=== PATIENT | female | born 1950 | race African-American/Black ===

== ENCOUNTER 2020-12-20 13:21 | Emergency (ER) | payer MEDICARE, SELFPAY ==
--- NOTE | ~2020-12-20 | XR_ITS ---
EXAMINATION: XR cervical spine 4-5V DATE: 12/20/2020 13:59 INDICATION: Stiff neck. TECHNIQUE: 4 views of cervical spine were obtained. COMPARISON: Cervical spine radiographs 10/28/2016 FINDINGS: There is kyphosis of cervical spine. There is 12 degrees levoscoliosis of cervical spine. V ertebral body heights are normal. There is mildly decreased disc height at C5-C6 and C6-C7. There is severe bilateral uncovertebral joint osteoarthritis at C5-C6. There is multilevel mild to moderate fa cet joint osteoarthritis. There is mild central canal stenosis at C5-C6 and C6-C7. No prevertebral so ft tissue swelling. IMPRESSION: 1. Moderate cervical spondylosis. 2. Cervical levoscoliosis and kyphosis. Reviewed, dictated and finalized at location A.
[2020-12-20 13:36] VITALS: BP 147/82; PULSE 90; RESP 16; TEMP 37.2; O2SAT 98
--- NOTE | 2020-12-20 13:45 | ED.NECK ---
HPI - Neck Pain/Injury General Chief Complaint: Back Pain/Injury Stated Complaint: stiff neck/back Time Seen by Provider: 12/20/20 13:35 Source: patient Mode of arrival: ambulatory Limitations: no limitations History of Present Illness HPI Narrative: Tressa Sheridan is a 70 yo female with a PMH of HTN, GERD, who [facility] complaining of left-sided neck pain and limitation of motion of her neck x 2 days. Rates pain as high as 9 out of 10.she has been taking Flexeril for the last day and a half and slipped on a single pull but still has pain that wakes her up at night Related Data Home Medications Medication Instructions Recorded Confirmed diltiazem HCl 180 mg PO DAILY 12/20/20 12/20/20 hydrochlorothiazide 12.5 mg PO DAILY 12/20/20 12/20/20 omeprazole 40 mg PO DAILY 12/20/20 12/20/20 Allergies Allergy/AdvReac Type Severity Reaction Status Date / Time propoxyphene Allergy Mild Nausea and Unverified 11/12/15 17:49 Vomiting Review of Systems Review of Systems: Narrative: CONSTITUTIONAL: Denies fever, chills, sweats. EYES: Denies visual changes, redness, discharge. ENT: Denies rhinorrhea, congestion, sore throat, otalgia. CARDIOVASCULAR: Denies chest pain, palpitations, edema. RESPIRATORY: Denies dyspnea, wheezing, cough GASTROINTESTINAL: Denies abdominal pain, nausea, vomiting, diarrhea. GENITOURINARY: Denies dysuria, hematuria, abnormal discharge SKIN: Denies rash or itching. NEUROLOGIC: Denies numbness, or focal weakness. PSYCHIATRIC: Denies anxiety or depression. Neck pain on right greater than left PMFSH Past Medical History Medical History Back pain HTN (hypertension) Family History Family History (Updated 12/20/20 @ 14:03 by Gem Arguelles CNP) Other Heart disease Hypertension Social History Social History (Updated 12/20/20 @ 14:03 by Gem Arguelles CNP) Smoking status: Never smoker Alcohol intake: current Gender identity (if verbalized by the patient): Female Comments At time of signature, I agree with nursing past medical, surgical, social and family history. There is no relevant family history pertinent to the presenting complaint. Exam Narrative: Exam Narrative: GENERAL: This is a well-nourished, well-developed patient, in moderate distress. HEAD: normocephalic, atraumatic. EYES: Sclera clear/white. Vision is grossly intact. EARS: External ears normal, Hearing grossly intact. NOSE: External nose normal without nasal discharge, nares without redness, no rhinorrhea. THROAT: Mucous membranes moist, NECK: Neck supple, tender on L > R, muscular lump om L CARDIOVASCULAR: Regular rate and rhythm without murmurs, gallops, or rubs. RESPIRATORY: Clear to auscultation. Breath sounds equal bilaterally. No wheezes, rales, or rhonchi. GASTROINTESTINAL: Abdomen soft, SKIN: warm, intact with no suspicious lesions or rash, good texture and turgor. NEURO: awake, alert, and oriented to person, place and time. There were no obvious focal neurologic abnormalities. Steady gait EXTREMITIES: Normal range of motion. BACK: Nontender without deformity Course Course Emergency Course: 70-year-old patient here with complaints of neck pain x2 days, states pain is not getting better with heat and Flexeril, no injury but unable to turn head fully are lift head far enough to take pills X-ray of neck shows negative acute findings patient has moderate scoliosis kyphosis and spondylosis Given Toradol IM here At discharge rated pain as a 7/10. Changed muscle relaxant to baclofen with tramadol-patient warned of the sedative effects of baclofen and tramadol and not to drive Vital Signs Vital signs: Vital Signs Temperature 99.0 F 12/20/20 13:36 Pulse Rate 90 12/20/20 13:36 Respiratory Rate 16 12/20/20 13:36 Blood Pressure 147/82 H 12/20/20 13:36 Pulse Oximetry 98 12/20/20 13:36 Temperature 99.0 F 12/20/20 13:36 Pu
[2020-12-20] MEDS: KETOROLAC (*BKC) 60 MG/2 ML VIAL IM (14:17)
== END 2020-12-20 14:37 | disposition home or self-care (01) ==
PROVIDERS: Emergency Provider Nurse Practitioner
DX: M43.6 Torticollis (principal); M54.2 Cervicalgia; I10 Essential (primary) hypertension; K21.9 Gastro-esophageal reflux disease without esophagitis
CPT/HCPCS: 72050; 96372; 99213; G0463; J1885

== ENCOUNTER 2022-08-30 09:56 | Outpatient (CLI) | payer OTHER, SELFPAY ==
--- NOTE | 2022-08-30 10:56 | ECG_ITS ---
Measurements Intervals [facility] Rate: 68 P: 41 OH: 150 QRS: 3 QRSD: 90 T: 1 QT: 393 QTc: 421 Interpretive Statements SINUS RHYTHM LEFT VENTRICULAR HYPERTROPHY BORDERLINE ST-T WAVE ABNORMALITY- INFERIOR LEADS BASELINE ARTIFACT- I, III, AVR, AVL, AVF BORDERLINE ECG NO PREVIOUS ECG AVAILABLE FOR COMPARISON Electronically Signed On 08-30-2022 11:50:15 THORACIC MEDICINE SPECIALIST by Rob Millan D.O.
[2022-08-30 11:24] LABS: Eosinophils Absolute Auto 0.1 K/mm3 (0-0.3); Eosinophils Percent Auto 2.3 % (0-4.4); Hematocrit 36.6 % (37.0-47.0); Hemoglobin 11.9 g/dL (12.0-15.0); Immature Granulocyte Absolute 0.01 K/mm3 (0.00-0.031); Immature Granulocyte Percent A 0.3 % (0-0.5); Lymphocytes Absolute Auto 1.08 K/mm3 (0.9-3.2); Lymphocytes Percent Auto 27.3 % (18.3-44.2); Mean Corpuscular HGB Conc 32.5 g/dl (32-36); Mean Corpuscular Hemoglobin 29.4 pg (26-34); Mean Corpuscular Volume 90.4 fl (80-100); Mean Platelet Volume 9.5 fl (7.4-10.4); Monocytes Absolute Auto 0.5 K/mm3 (0.1-0.6); Monocytes Percent Auto 11.6 % (2.6-8.5); Neutrophils Absolute Auto 2.3 K/mm3 (1.3-6.7); Neutrophils Percent Auto 57.5 % (45.5-73.1); Platelet Count Result 222 k/mm3 (150-375); Red Blood Count 4.05 M/mm3 (4.2-5.4); Red Cell Distribution Width 14.1 % (11.5-14.5)
[2022-08-30 11:31] LABS: Albumin Level 4.1 g/dL (3.5-5.1); Anion Gap 7 mmol/L (8-16); Blood Urea Nitrogen 15 mg/dL (7-17); Calcium 8.8 mg/dL (8.4-10.2); Carbon Dioxide 31 mmol/L (22-30); Chloride 101 mmol/L (98-107); Estimated Glomerular Filt Rate > 60; Glucose 101 mg/dL (65-110); Potassium 3.8 mmol/L (3.4-5.0); Sodium 139 mmol/L (137-145)
[2022-08-30 11:34] LABS: Urine Cotinine NEGATIVE
[2022-08-30 11:59] LABS: Hemoglobin A1C 5.8 % (<5.7)
== END 2022-08-30 09:57 | disposition home or self-care (01) ==
PROVIDERS: PCP Family Medicine; Visit Provider Orthopaedic Surgery
DX: M17.0 Bilateral primary osteoarthritis of knee (principal); Z01.818 Encounter for other preprocedural examination; R94.31 Abnormal electrocardiogram [ECG] [EKG]
CPT/HCPCS: 80048; 80307; 82040; 83036; 85025; 87081; 93005

== ENCOUNTER 2022-09-14 01:39 | Day surgery (SDC) | payer OTHER, SELFPAY ==
--- NOTE | 2022-08-30 09:53 | PC.NURSE ---
PRE-OP INSTRUCTIONS, PLEASE READ CAREFULLY Report to the Outpatient Waiting Room, entrance under the green pavilion located off [facility], at time _1000_ on date _09/14/22_. Planned Procedure Time: _1200_. PACK A SMALL OVERNIGHT BAG AND LEAVE IN THE CAR ALONG WITH YOUR WALKER Time changes happen often and if your time is changed the preop area will call you the afternoon before. - You and your visitor will be asked to self-screen and do not enter if you have any COVID symptoms. - Only one visitor is requested with a max of two and NO children visitors are allowed at this time. - The patient visitor may be requested to leave or wait in car when not with patient due to distancing restrictions. - A mask is REQUIRED within the hospital. -VISITING HOURS 8AM-8PM Patients may have clear liquids (water, carbonated beverages, clear teas, apple juice) until 3 hours prior to surgery (0900 AM) with a maximum of 20 ounces. - No food from midnight until time of surgery Take the following medications with a SIP of water the morning of surgery: _DILTIAZEM, FLEXERIL IF NEEDED_ Medications to discontinue per - ASPIRIN PER DR. CORDERO'S INSTRUCTIONS NAPROXEN 7 DAYS PRIOR TO SURGERY, Date to take last dose 09/06/22_ Medications to discontinue per ANESTHESIA - _HEALING HERBS 3 DAYS PRIOR TO SURGERY, Date to take last dose 09/10/22_ Please no make-up, nail maori, hairspray, perfume, deodorant, or body powder the day of surgery. No jewelry (including any body piercings) or valuables the day of surgery, leave them at home. Please take a shower or bath the night before, or the morning of, surgery with an antibacterial soap. Wear comfortable, loose fitting clothing. - Jewelry must be removed prior to entering the operating room. Rings and piercings that are not removed may be cut off. - The hospital will not accept responsibility for valuables. - Please leave all valuables, including medications, at home the day of surgery. If you are going home after surgery, a licensed bottom hoop driver must drive you home. - NO public transportation without another adult if you receive anesthesia. - We recommend that an adult stay with you for 24 hours following discharge. - We also recommend that you do not drive, make important decision, drink alcoholic beverages, or take any drugs that were not prescribed by your health care provider for at least 24 hours after your discharge time. Follow any additional instructions given to you from your surgeon. If you or anyone in your household have experienced Covid symptoms in the past week, please notify your surgeon or the nurse liaison at the phone number below for possible testing. Instructions given to _PATIENT_and asked if any additional questions and then verbalized understanding. Patient advised to call surgeon office or pre surgery nurse liaison [phone] if any additional questions.
[2022-08-30 10:33] VITALS: BP 134/64; PULSE 74; RESP 18; TEMP 36.6; O2SAT 100; BMI 35.7
--- NOTE | 2022-09-09 12:01 | PM.IMHP ---
H&P: HPI History of Present Illness Date/Time: 09/09/22 12:01 Chief Complaint: Bilateral knee DJD Narrative: 72-year-old female who presents today for left total knee arthroplasty and cortisone injection in the right knee. She has been having symptoms in her knees for years. Patient has severe medial compartment osteoarthritis in both knees. She has been on meloxicam 7.5 mg twice daily. Patient feels this point nonsurgical treatment for her knee pain is not working and is ready to proceed with total knee arthroplasty at this point rather than continue nonsurgical treatment. Review of Systems Review of Systems: All systems reviewed & are unremarkable except as noted in HPI and below PMFSH Past Medical History Medical History Back pain HTN (hypertension) Family History Family History Other Heart disease Hypertension Social History Social History Smoking status: Never smoker Second hand tobacco smoke exposure: No Additional smoking assessment comments: PT DENIES ALL FORMS OF TOBBACO USE Alcohol intake: never Substance use: never Substance use type: does not use Gender identity (if verbalized by the patient): Female Spiritual care concerns: No Meds Home Medications and Allergies Home Medications Medication Instructions Recorded Confirmed Type diltiazem HCl 180 mg 180 mg PO DAILY 12/20/20 08/30/22 History capsule,extended release 24 hr hydrochlorothiazide 12.5 mg tablet 12.5 mg PO DAILY 12/20/20 08/30/22 History Natures Formula Healing Herbs 0.5 tsp DAILY 08/30/22 History Stool Softener 3 tab-cap DAILY 08/30/22 08/30/22 History aspirin 81 mg capsule 81 mg PO DAILY 08/30/22 08/30/22 History chlorpheniramine-dextromethorphan 1 tablet PO Q6H PRN Congestion 08/30/22 08/30/22 History 4 mg-30 mg tablet (Coricidin HBP Cough and Cold) cyclobenzaprine 10 mg tablet 10 mg BID PRN Muscle Spasm 08/30/22 08/30/22 History naproxen 2 tab-cap BID 08/30/22 08/30/22 History pantoprazole 40 mg tablet,delayed 40 mg PO BID 08/30/22 08/30/22 History release Allergies Allergy/AdvReac Type Severity Reaction Status Date / Time propoxyphene Allergy Mild Nausea and Unverified 08/30/22 10:19 Vomiting Exam Narrative: 72-year-old female alert pleasant. She is 5 ft 2 in and 202 lb. BMI is 36.9. Her left hip has full range of motion without discomfort. Normal quad strength. Negative Stinchfield maneuver. Left knee range of motion is from 15-95 degrees. Trace effusion in the left knee. Moderate anterior medial joint line tenderness. Normal stability in the knee. 2+ dorsalis pedis and absent posterior tibialis pulse. Normal sensation to both lower extremities no edema in either lower extremity. Resp: Auscultation: clear to auscultation bilaterally Cardio: Rate: regular rate Rhythm: regular rhythm Assessment and Plan Assessment and plan (1) Left knee DJD: Code(s): M17.12 - Unilateral primary osteoarthritis, left knee Status: Acute Plan 72-year-old female who has severe medial compartment osteoarthritis in both knees with the left being more painful than the right at this point. At this point she feels she is ready proceed with surgery on the left. We will also give her cortisone injection on the right knee at the time surgery. Surgical procedure as well as the risks and complications were discussed in detail all questions were answered and we will proceed. Patient will see her primary care doctor for pre-surgical clearance. She has seen cardiology and has had a stress test done which showed ejection fraction at 76% normal myocardial perfusion she has been cleared from cardiology. Plan use Eliquis for DVT prophylaxis postoperatively. Her Chem panel was all within normal limits creatinine 0.90, hemoglobin 11.9
[2022-09-14] VITALS (11 sets, daily range): BP systolic 120–132; BP diastolic 63–77; PULSE 72–89; RESP 14–20; TEMP 36–36.6; O2SAT 97–100; BMI 34.3
--- NOTE | ~2022-09-14 | XR_ITS ---
EXAMINATION: XR knee LT 2V DATE: 09/14/2022 16:37 INDICATION: Total left knee arthroplasty. Postop. TECHNIQUE: 2 views of left knee were obtained. COMPARISON: None. FINDINGS: There is a total left knee arthroplasty with patellar resurfacing in near-anatomic alignmen t. No fracture. There is gas in the knee joint and soft tissues, consistent with recent surgery. IMPRESSION: 1. Total left knee arthroplasty in near-anatomic alignment. Reviewed, dictated and finalized at location A. [employer]IN[employer]
[2022-09-14] MEDS: ACETAMINOPHEN 500 MG TABLET 1000 MG PO (10:13)
[2022-09-14] MEDS: LACTATED RINGERS 1,000 ML 30 ML IV CONT ×2 (10:30→16:23)
[2022-09-14] MEDS: TRANEXAMIC ACID 1,000MG/ISO100 1,000 MG/100 ML BAG 200 MG IVPB (11:30)
--- NOTE | 2022-09-14 11:46 | WPDANESEPPF ---
Anes - Initial Pre Proc Eval Procedure: Operation Date: 09/14/22 12:00 Proposed Procedures p Left Total Knee Arthroplasty, Right Knee Cortisone Injection - Domingo Gonzalez MD Date/Time: 09/14/22 11:46 Surgeon: Domingo Gonzalez MD Pre Op Diagnosis: oa right and left knee Patient Data Age: 72 Gender: F Height: 1.6 m Weight: 88 kg Last Vital Signs Temp 36.3 C L 09/14/22 10:46 Pulse 82 09/14/22 10:46 Resp 16 09/14/22 10:46 BP 129/72 09/14/22 10:46 Pulse Ox 100 09/14/22 10:46 O2 Del Method Room Air 09/14/22 10:46 Allergies Allergy/AdvReac Type Severity Reaction Status Date / Time No Known Allergies Allergy Verified 09/14/22 10:15 Home Medications Medication Instructions Recorded Confirmed Type diltiazem HCl 180 mg 180 mg PO DAILY 12/20/20 09/14/22 History capsule,extended release 24 hr hydrochlorothiazide 12.5 mg tablet 12.5 mg PO DAILY 12/20/20 09/14/22 History Natures Formula Healing Herbs 0.5 tsp DAILY 08/30/22 09/14/22 History Stool Softener 3 tab-cap DAILY 08/30/22 09/14/22 History aspirin 81 mg capsule 81 mg PO DAILY 08/30/22 09/14/22 History chlorpheniramine-dextromethorphan 1 tablet PO Q6H PRN Congestion 08/30/22 09/14/22 History 4 mg-30 mg tablet (Coricidin HBP Cough and Cold) cyclobenzaprine 10 mg tablet 10 mg BID PRN Muscle Spasm 08/30/22 09/14/22 History naproxen 2 tab-cap BID 08/30/22 09/14/22 History pantoprazole 40 mg tablet,delayed 40 mg PO BID 08/30/22 09/14/22 History release Patient hx anesthesia problems: none Family hx anesthesia problems: none Results Review: All pre-operative results and documents have been reviewed as part of the pre-operative evaluation. [facility] Past Medical History Medical History Back pain HTN (hypertension) Family History Family History Other Heart disease Hypertension Social History Social History Smoking status: Never smoker Second hand tobacco smoke exposure: No Additional smoking assessment comments: PT DENIES ALL FORMS OF TOBBACO USE Alcohol intake: never Substance use: never Substance use type: does not use Living arrangements: alone Gender identity (if verbalized by the patient): Female Spiritual care concerns: No Anes - Eval Final PreProcedure Day of Procedure 09/14/22 11:46 Patient weight: obese Heart: regular rate and rhythm Lungs: clear to auscultation Airway: Mallampati scale class II Neurological: alert and oriented Last oral intake: >/= 8 hours ASA classification: III Emergent: no Anesthetic plan: proceed Anesthesia type and monitoring: general ETT and standard monitoring Results Review: All pre-operative results and documents have been reviewed as part of the pre-operative evaluation. Informed Consent: The patient's anesthetic plan and its attendant risks and benefits were discussed with the patient/family/POA. Questions were solicited and answers provided to the satisfaction of the patient/family/POA.
--- NOTE | 2022-09-14 12:03 | WPDHPUPDATE1 ---
History and Physical Update Update Date/Time: 09/14/22 12:03 History and Physical has been reviewed, including an updated exam of the patient. There are NO changes in the patient's condition. Risks, benefits, and alternatives have been discussed and questions answered. Patient agrees to proceed with procedure.
[2022-09-14] MEDS: ceFAZolin 2 GM/D5W 50 ML 2 GM/50 ML BAG IVPB (12:09)
[2022-09-14] MEDS: ceFAZolin SODIUM 1 GM VIAL 3 GM (12:56)
[2022-09-14] MEDS: GENTAMICIN BONE CEMENT REFOBACIN 1 EACH TOPICAL (12:57)
[2022-09-14] MEDS: methylPREDNISolone ACETATE 80 MG/ML VIAL XX (13:05)
[2022-09-14] MEDS: TRANEXAMIC ACID 1,000 MG/10 ML AMPUL 1000 MG IV PUSH (14:54)
[2022-09-14] MEDS: ceFAZolin SODIUM 1 GM VIAL 2 GM IV PUSH (14:56)
--- NOTE | 2022-09-14 15:52 | W.PM.PROC2 ---
Procedure Note - Detailed Date of Procedure 09/14/22 Pre-op Diagnosis oa right and left knee, obesity Post-op Diagnosis Same Procedure Performed Cortisone injection right knee, left total knee arthroplasty Surgeon Domingo Gonzalez MD Sandwich Machine Operator Rebecca Anesthesia General Description of Procedure Patient was brought to the operating room and general anesthesia was administered. She received 2 g of Ancef weight based vancomycin 1 g of tranexamic acid preoperatively. After time-out, the right knee was prepped with the ChloraPrep and 80 mg of Depo-Medrol and 3 cc 1% lidocaine were injected into the right knee without difficulty. Next the left knee was addressed. Even under anesthesia she had range of motion from 15? to barely 90?. She did become significantly stiffer since last evaluation. Her BMI is 36.7 and her stiffness and obesity made the operation much more difficult than usual adding approximately 45 minutes to the operation. The left knee was prepped draped usual fashion. Limb was exsanguinated tourniquet elevated to 300 mmHg. A an 8 in longitudinal midline incision was used and a standard parapatellar arthrotomy was utilized. She had huge osteophytes around the patella which were debrided. . Osteophytes removed from around the femur. Even with this, because of the tightness of her quadriceps exposure of the distal femur was very difficult. We performed a suprapatellar synovectomy. Dense stiff white synovium lining covered the the entire joint she had a large effusion at time of arthrotomy and the medial and lateral gutters were similarly debrided of synovium. A conservative lateral facetectomy was performed and with this all performed we were able to shai the patella and a patella was cut down to 16 mm and a protector cap applied. The distal femur was exposed guide tristin inserted down the femoral canal after aspiration of canal contents using the 5 degree valgus cutting bushing 9 mm of bone removed the distal femur which removed equal amounts medially and laterally due to medial wear. Next the tibia was cut. Our initial cut did not quite get down to the base of the posteromedial tibial wear area. Therefore an additional 2 or 2.5 mm was removed and this brought us down to remove 1 mm of bone from the low point of the posteromedial tibial plateau. Cut was made perpendicular to the axis of the tibia. Meniscus remnants were excised PCL was recessed off the femur and a conservative posterior central capsule release was performed. Medial and lateral gaps were assessed at 90? with a tight 8 mm medially and 12 mm laterally. We had removed lateral femoral osteophyte prior to this assessment. The sizing guide was applied distal femur set at 5? external rotation. Posterior referencing pinholes were placed and the size 65 vanguard cutting block was applied and AP and chamfer cuts were made and this gave us a nice line to line fit the anterior cortex in line to line distally with the trial. With the 10 mm [address] trial in place I felt that we were at about 1 degree of valgus and we were tight medially flexion compared to laterally where there was a mm or 2 amount of play at 90? laterally no plate medially. We reapplied the tibial cutting block and removed another mm of bone shifting of lock into 1 degree of varus relative to its previous position and bringing down the relative high spot in the dense posterior tibial plateau bone and this gave us a perfectly flat surface that was felt to be at 0? varus valgus this point. The tibia was subluxed and sized for a 71 vanguard tray which fit line to line posterolateral to anteromedial at the proper rotation and again the tray was perfectly stable confirming a perfectly flat surface of the tibial plateau. This was punched and we trialed with a 10 mm insert. At 90? we had a mm of play medially 1-2 mm laterally. We lacked a few degrees of extension no play medially 2 mm laterally. Posterior femoral bone was removed w
[2022-09-14] MEDS: KETOROLAC 15 MG/ML VIAL (*BKC) IV PUSH ×2 (16:13→21:43)
--- NOTE | 2022-09-14 17:41 | ADMGEN ---
This patient, Tressa Sheridan, was admitted to -. Patient/family oriented to hospital policies and general routines including ID bracelet, bed and alarms, visiting hours, pain management, procedures, bathroom and other care routines, personal items, smoking policy, room service/diet, and visiting hours. Information on how to activate the Rapid Response Team has been discussed. Patient/Family are encouraged to report perceived risks to care and to ask questions if they do not understand what they are told or what they should do.
[2022-09-14] MEDS: ONDANSETRON INJ 4 MG/2 ML VIAL IV PUSH (17:55)
[2022-09-14] MEDS: MORPHINE SULFATE (*CRX) 2 MG/ML INJ IV PUSH ×2 (18:56→20:49)
[2022-09-14] MEDS: SODIUM CHLORIDE 0.9% IV 1,000 ML 125 ML IV CONT (19:00)
--- NOTE | 2022-09-14 20:26 | PM.IMCN ---
Assessment and Plan Assessment and plan (1) Status post total left knee replacement: Onset Date: 09/14/22 Code(s): Z96.652 - Presence of left artificial knee joint Status: Acute (2) Postoperative nausea: Code(s): R11.0 - Nausea; Z98.890 - Other specified postprocedural states Status: Acute (3) Essential hypertension: Code(s): I10 - Essential (primary) hypertension Status: Acute Plan Patient is postop left total knee arthroplasty. Pain management and DVT prophylaxis per primary service. Patient is having mild postoperative nausea. Patient already has Zofran scheduled. Will give 1 dose of Phenergan. Likely due to post anesthesia affect and or opiate use. Will continue Zofran and give 1 time dose of IM Phenergan. Will continue home PPI therapy. The patient remains on IV fluids. Will check electrolyte panel with a.m. labs. The patient has essential hypertension but blood pressures are well controlled. Will continue home Cardizem and hydrochlorothiazide. Once postop nausea has resolved patient is stable from a medical perspective in may be discharged per orthopedic surgeon's discretion. HPI Data of Consult Consult date: 09/14/22 Requesting Physician: Domingo Gonzalez MD Primary Care Provider: Anais BachMD Consult Narrative Narrative: Tressa Sheridan is a 72 year old female with a past medical history a GERD and essential hypertension who presented to the hospital for an elective left total knee arthroplasty. Intraoperatively the patient had estimated blood loss of 250 mL. Her preop hemoglobin was around 11. Patient underwent left total knee arthroplasty and has had a uncomplicated postoperative course except for postop nausea. Patient is not having any active vomiting but has persistent nausea despite Zofran. EKG was reviewed from last month's preop testing and patient had normal QT interval. Phenergan has been provided. Patient does have a history of hypertension but blood pressures are well controlled. She denies any abdominal pain. She has had nausea but no true vomiting. She reported that her last bowel movement was within the last 48 hours. She denies any hematochezia or melena. She has occasional urge urinary incontinence. She denies dysuria or hematuria. She has been voiding postoperatively. Her postop knee pain is 5/10 currently. She reports feeling chilled but this is not unusual for her. She denies any shortness of breath or chest pain. She denies any bruising or bleeding. She also has chronic right knee pain is well with known osteoarthritis. She denies any lightheadedness or palpitations. She denies any dizziness. She denies recent falls. Review of Systems Review of Systems: 10 systems were reviewed with pertinent positives and negatives per HPI. Except as documented in the HPI, all other systems were reviewed and are negative. [facility] Past Medical History Medical History (Updated 09/14/22 @ 20:36 by Blanquita Mcpherson DO) Back pain Essential hypertension GERD (gastroesophageal reflux disease) Hypersomnia, idiopathic With MSLT demonstrating hypersomnia in 2016 without evidence of REM sleep achieved so cannot diagnose narcolepsy Obesity (BMI 30.0-34.9) Surgical History Surgical History (Updated 09/14/22 @ 22:11 by Blanquita Mcpherson DO) History of bilateral carpal tunnel release (2002) History of bunionectomy of both great toes History of right breast biopsy (~1999) With benign pathology History of tubal ligation Status post total left knee replacement (09/14/22) Status post trigger finger release Right thumb 2002, left thumb 1996 Family History Family History Other Heart disease Hypertension Social History Social History (Updated 09/14/22 @ 22:09 by Blanquita Mcpherson DO) Social History: 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 She is
[2022-09-14] MEDS: PROMETHAZINE HCL 25 MG/ML AMPUL IM (20:47)
[2022-09-14] MEDS: PANTOPRAZOLE SODIUM IV 40 MG VIAL IV PUSH (21:44)
[2022-09-14] MEDS: oxyCODONE HCL (*CRX) 5 MG TAB IR PO (22:24)
[2022-09-15] MEDS: ACETAMINOPHEN 500 MG TABLET 1000 MG PO ×3 (00:52→12:32)
[2022-09-15] MEDS: oxyCODONE HCL (*CRX) 5 MG TAB IR PO ×2 (03:43→06:56)
[2022-09-15 05:05] VITALS: BP 136/65; PULSE 81; RESP 20; TEMP 36.6; O2SAT 100
[2022-09-15 05:28] LABS: Basophils Percent Auto 0.1 % (0.2-1.2); Hematocrit 29.5 % (37.0-47.0); Hemoglobin 9.8 g/dL (12.0-15.0); Immature Granulocyte Absolute 0.03 K/mm3 (0.00-0.031); Immature Granulocyte Percent A 0.3 % (0-0.5); Lymphocytes Absolute Auto 0.42 K/mm3 (0.9-3.2); Lymphocytes Percent Auto 4.4 % (18.3-44.2); Mean Corpuscular HGB Conc 33.2 g/dl (32-36); Mean Corpuscular Hemoglobin 29.9 pg (26-34); Mean Corpuscular Volume 89.9 fl (80-100); Mean Platelet Volume 9.1 fl (7.4-10.4); Monocytes Absolute Auto 0.6 K/mm3 (0.1-0.6); Monocytes Percent Auto 6.2 % (2.6-8.5); Neutrophils Absolute Auto 8.5 K/mm3 (1.3-6.7); Platelet Count Result 162 k/mm3 (150-375); Red Blood Count 3.28 M/mm3 (4.2-5.4); Red Cell Distribution Width 13.9 % (11.5-14.5); White Blood Count 9.5 K/mm3 (4.5-10.0)
[2022-09-15 05:42] LABS: Anion Gap 5 mmol/L (8-16); Blood Urea Nitrogen 11 mg/dL (7-17); Calcium 7.7 mg/dL (8.4-10.2); Carbon Dioxide 26 mmol/L (22-30); Chloride 102 mmol/L (98-107); Estimated CRCL calculation 65 ml/min; Estimated Glomerular Filt Rate > 60; Glucose 145 mg/dL (65-110); Potassium 3.6 mmol/L (3.4-5.0); Sodium 133 mmol/L (137-145)
--- NOTE | 2022-09-15 07:21 | PM.PNORT ---
Subjective Subjective Date/Time Seen: 09/15/22 07:21 Postop day 1 patient is alert. Afebrile vital signs stable. She did have some nausea night but this has improved. No bouts emesis. She has been up to the restroom multiple times overnight. Pain is well controlled. Dressing is dry and intact. Neurovascularly she is intact. Plan to have patient work with therapy today and after IV antibiotics have been completed she will be discharged home early this afternoon Objective Data Vital Signs Vital Signs: Vital Signs - 24 hr 09/14/22 10:46 09/14/22 16:23 09/14/22 16:35 Temperature 36.3 C L 36.0 C L Pulse Rate 82 89 77 Respiratory Rate 16 16 20 Blood Pressure 129/72 124/74 123/67 Pulse Oximetry 100 100 100 Oxygen Delivery Room Air Simple Face Mask Simple Face Mask Oxygen Flow Rate 6 6 09/14/22 16:50 09/14/22 16:58 09/14/22 17:05 Temperature Pulse Rate 80 77 Respiratory Rate 16 14 Blood Pressure 120/68 122/63 Pulse Oximetry 100 98 Oxygen Delivery Simple Face Mask Room Air Room Air Oxygen Flow Rate 6 09/14/22 17:20 09/14/22 17:47 09/14/22 17:35 Temperature 36.3 C L Pulse Rate 86 77 Respiratory Rate 14 18 Blood Pressure 124/66 126/73 Pulse Oximetry 97 99 Oxygen Delivery Room Air Room Air Oxygen Flow Rate 09/14/22 17:50 09/14/22 18:20 09/14/22 19:47 Temperature 36.4 C L 36.4 C L 36.6 C Pulse Rate 73 72 85 Respiratory Rate 17 18 20 Blood Pressure 126/73 132/77 130/68 Pulse Oximetry 99 100 100 Oxygen Delivery Oxygen Flow Rate 09/14/22 21:39 09/15/22 05:05 Temperature 36.6 C Pulse Rate 78 81 Respiratory Rate 18 20 Blood Pressure 136/65 Pulse Oximetry 98 100 Oxygen Delivery Oxygen Flow Rate Intake/Output Intake/Output: Intake & Output 09/12/22 09/13/22 09/14/22 09/15/22 23:59 23:59 23:59 23:59 Intake Total 1100 1700 Balance 1100 1700 Meds/Results Medications: Active Medications Generic Name Dose Route Start Last Admin Trade Name Freq PRN Reason Stop Dose Admin Acetaminophen 1,000 mg 09/14/22 19:00 09/15/22 06:56 Acetaminophen 500 Mg Tablet PO 1,000 mg Q6H [facility] Administration Apixaban 2.5 mg 09/15/22 09:00 Apixaban 2.5 Mg Tablet PO 09/26/22 21:01 Q12HR [facility] Aspirin 81 mg 09/15/22 09:00 Aspirin 81 Mg Chewable Tablet PO DAILY [facility] Cephalexin HCl 500 mg 09/15/22 18:00 Cephalexin 500 Mg Capsule PO Q6HR [facility] Cyclobenzaprine HCl 10 mg 09/14/22 17:29 Cyclobenzaprine Hcl 10 Mg Tablet PO BID PRN Muscle Spasm Diltiazem HCl 180 mg 09/15/22 09:00 Diltiazem Hcl Cd 180 Mg Cap.Er.24h PO DAILY [facility] Cefazolin Sodium 1 gm in 50 mls @ 100 mls/hr 09/14/22 20:00 09/15/22 04:13 Ancef 1 Gm/D5w 50 Ml Pm IVPB 09/15/22 12:29 Infused Q8H [facility] Infusion Vancomycin HCl 1,000 mg in 250 mls @ 250 mls/hr 09/14/22 23:00 09/15/22 00:33 Vancomycin 1,000 Mg/D5w 250 Ml IVPB 09/15/22 11:59 Infused Q12H [facility] Infusion Meloxicam 7.5 mg 09/15/22 08:00 Meloxicam 7.5 Mg Tablet PO DAILY@0800 [facility] Miscellaneous Information 1 each 09/14/22 00:01 Coricidin Hbp Is Nonform; Ok To Hold If Not Needed Or Change To Formulary Items? XX 10/14/22 00:00 CLARIFY [facility] Morphine Sulfate 2 mg 09/14/22 17:29 09/14/22 20:49 Morphine Sulfate (*Crx) 2 Mg/Ml Inj IV PUSH 2 mg Q1H PRN Administration Pain Rated 7-10 Naloxone HCl 0.1 mg 09/14/22 17:29 Naloxone Hcl 0.4 Mg/Ml Vial IV PUSH Q2M PRN Opiate Reversal Non-Formulary Medication 1 tablet 09/14/22 17:29 Chlorpheniramine-Dextromethorp [Coricidin Hbp Cough And Cold] PO Q6H PRN Congestion Ondansetron HCl 4 mg 09/14/22 17:52 09/14/22 17:55 Ondansetron Inj 4 Mg/2 Ml Vial IV PUSH 4 mg Q4H PRN Administration Nausea And Vomiting Oxycodone HCl 5 mg 09/14/22 19:00 09/15/22 06:56 Oxycodone Hcl (*Crx) 5 Mg Tab Ir PO 5 mg Q4H [facility] Administration Oxycodone HCl 5 mg 09/14/22
--- NOTE | 2022-09-15 07:27 | PM.DS ---
DS: Admitting Diagnosis Discharge Date 09/15 Admitting Diagnosis bilateral knee DJD DS: Discharge Diagnosis Discharge Diagnosis (1) Status post total left knee replacement: Onset Date: 09/14/22 Code(s): Z96.652 - Presence of left artificial knee joint Status: Acute DS: Summary Hospital Course Hospital Course: 72-year-old female underwent left total knee arthroplasty with cortisone injection the right knee on 09/14. Underwent procedure without complications. Postoperatively she did have some mild nausea day of surgery but this past overnight postop day 1 she was afebrile vital signs are stable. She is having no nausea. Pain is well controlled with scheduled Tylenol as well as oxycodone 5 mg. She is also on meloxicam 7.5 mg, we are using this instead of Celebrex due to the fact she is maintaining her baby aspirin through the of surgery. She is on Eliquis for DVT prophylaxis. She was up multiple times the day of surgery to the restroom. Overall she is doing well. Dressing is dry and intact. Neurovascularly she is intact. Patient will work with physical therapy on 09/15 And will be discharged home later that day. patient was advised to keep leg elevated home prevent swelling with do her exercises on hourly basis. She does have a 05/13 heel lift to use in the right shoe while she is ambulating. She has outpatient therapy starting next Monday. Patient will also go home on a 2 week course Keflex as well as Senokot And MiraLax. Patient was advised any questions or concerns she is to call the office otherwise we will see her at her appointed dates. Time Spent with Patient Time attestation: Total time spent providing and/or coordinating discharge services: DS: Data Data Completed and Pending Labs on day of discharge: Labs from last 24 hours 09/15/22 09/15/22 09/14/22 05:23 05:23 10:32 WBC 9.5 RBC 3.28 L Hgb 9.8 L Hct 29.5 L MCV 89.9 MCH 29.9 MCHC 33.2 RDW 13.9 Plt Count 162 MPV 9.1 Immature Gran % (Auto) 0.3 Neut % (Auto) 89.0 H Lymph % (Auto) 4.4 L [place] % (Auto) 6.2 Eos % (Auto) 0.0 Baso % (Auto) 0.1 L Lymph # (Auto) 0.42 L [place] # (Auto) 0.6 Eos # (Auto) 0.0 Baso # (Auto) 0.0 Abs Immat Gran (auto) 0.03 Absolute Neuts (auto) 8.5 H Absolute Nucleated RBC 0.0 Nucleated RBC % 0.0 Sodium 133 L Potassium 3.6 Chloride 102 Carbon Dioxide 26 Anion Gap 5 L BUN 11 Creatinine 0.70 Estim Creat Clear Calc 65 Estimated GFR > 60 Glucose 145 H Calcium 7.7 L Blood Type O Positive Antibody Screen Negative Discharge Plan Discharge Patient Disposition: Home, Self-Care Discharge Instructions: CAMRYN CORDERO M.D [facility], [place] [id number] [place] [id number] POST-OPERATIVE DISCHARGE INSTRUCTIONS TOTAL KNEE ARTHROPLASTY 1. When resting, lie on back with leg elevated above heart to minimize swelling. Significant swelling could indicate a blood clot and if this occurs call the office (or go to the ER) to have a venous ultrasound. 2. Do exercise 5 times a day. 3. Do not sit with leg down except for meals. 4. Wound Care: Nursing will give additional dressings at discharge. Patient to change dressing at home 1 week from surgery, then maintain until seen in office. 5. May shower with dressing in place. 6. Follow weight bearing status instructions. IMPORTANT: Remember not to sit in the chair for more than 30 minutes at a time. As a rule, during the first 14 days after surgery, only sit in the chair to work on the chair knee bending stretch exercise, for meals or for use of the restroom. Sitting in the chair promotes significant swelling in the knee and leg which will make the knee stiff and more painful and which simulates having a blood clot in the veins of the leg. If this type of significant diffuse swelling occurs
--- NOTE | 2022-09-15 08:03 | WPDANESPN ---
Anes - Prog Note Post-Op Date/Time: 09/15/22 08:03 Vital Signs: Last Vital Signs Temp 36.6 C 09/15/22 05:05 Pulse 81 09/15/22 05:05 Resp 20 09/15/22 05:05 BP 136/65 09/15/22 05:05 Pulse Ox 100 09/15/22 05:05 O2 Del Method Room Air 09/14/22 17:47 O2 Flow Rate 6 09/14/22 16:50 Pain Score (VAS): 2 I/O: Intake & Output 09/14/22 09/15/22 09/15/22 23:59 07:59 15:59 Intake Total 450 1700 Balance 450 1700 Laboratory Tests 09/15/22 05:23 09/15/22 05:23 09/14/22 09/15/22 09/15/22 10:32 05:23 05:23 WBC 9.5 RBC 3.28 L Hgb 9.8 L Hct 29.5 L MCV 89.9 MCH 29.9 MCHC 33.2 RDW 13.9 Plt Count 162 MPV 9.1 Immature Gran % (Auto) 0.3 Neut % (Auto) 89.0 H Lymph % (Auto) 4.4 L [place] % (Auto) 6.2 Eos % (Auto) 0.0 Baso % (Auto) 0.1 L Lymph # (Auto) 0.42 L [place] # (Auto) 0.6 Eos # (Auto) 0.0 Baso # (Auto) 0.0 Abs Immat Gran (auto) 0.03 Absolute Neuts (auto) 8.5 H Absolute Nucleated RBC 0.0 Nucleated RBC % 0.0 Sodium 133 L Potassium 3.6 Chloride 102 Carbon Dioxide 26 Anion Gap 5 L BUN 11 Creatinine 0.70 Estim Creat Clear Calc 65 Estimated GFR > 60 Glucose 145 H Calcium 7.7 L Blood Type O Positive Antibody Screen Negative Patient Feedback: Patient satisfied with anesthetic care.
[2022-09-15] MEDS: SENNA/DOCUSATE SODIUM TABLET 2 TAB PO (08:10)
[2022-09-15] MEDS: polyethylene glycoL 3350 17 GM POWD.PACK PO (08:10)
[2022-09-15] MEDS: APIXABAN 2.5 MG TABLET PO (08:10)
[2022-09-15] MEDS: PANTOPRAZOLE 40 MG TABLET PO (08:10)
[2022-09-15] MEDS: ASPIRIN 81 MG CHEWABLE TABLET PO (08:10)
[2022-09-15] MEDS: dilTIAZem HCL CD 180 MG CAP.ER.24H PO (08:10)
[2022-09-15] MEDS: MELOXICAM 7.5 MG TABLET PO (08:10)
--- NOTE | 2022-09-15 11:53 | PC.NURSE ---
Spoke with Anali Luque with hospitalist group- I let her know I had orders for discharge and she said she did not need to see the patient and is okay to send home
[2022-09-15 14:00] VITALS: BP 120/83; PULSE 79; RESP 18; TEMP 36.2; O2SAT 100
[2022-09-15] MEDS: CALCIUM CARBONATE (TUMS) 500 MG (200 MG ELEMENTAL) PO (14:03)
== END 2022-09-15 15:44 | disposition home or self-care (01) ==
LOC: ANHSURGERY 09:58 → ANHSUROVER 18:53
PROVIDERS: PCP Family Medicine; Visit Provider Orthopaedic Surgery
PROC: (CPT 27447; principal; 2022-09-14 12:00)
DX: M17.0 Bilateral primary osteoarthritis of knee (principal); R11.0 Nausea; I10 Essential (primary) hypertension; Z79.82 Long term (current) use of aspirin; E66.9 Obesity, unspecified; Z68.34 Body mass index [BMI] 34.0-34.9, adult
CPT/HCPCS: 27447; 20610; 36415; 73560; 80048; 80307; 82040; 83036; 85025; 86850; 86900; 86901; 87081; 93005; 97110; 97116; 97161; 97165; 97530; 97535; A9270; C1713; C1776; C9113; J0171; J0690; J1040; J1100; J1170; J1885; J2250; J2270; J2405; J2550; J2704; J2710; J2795; J3010; J3370; J7030; J7120

== ENCOUNTER 2024-05-21 10:06 | Outpatient (CLI) | payer MEDICARE, SELFPAY ==
--- NOTE | 2024-05-21 11:02 | ECG_ITS ---
Test Date: 2024-05-21 11:13:56 Measurements Intervals [place] Rate: 64 P: 43 MO: 155 QRS: 2 QRSD: 92 T: 15 QT: 398 QTc: 413 Interpretive Statements SINUS RHYTHM LEFT VENTRICULAR HYPERTROPHY POOR R WAVE PROGRESSION BORDERLINE ST-T WAVE ABNORMALITY- ANTERAOLAT/INF LEADS BASELINE ARTIFACT- I, II, III, AVR, AVL, AVF, V1-V6 BORDERLINE ECG No previous ECG available for comparison Electronically Signed On 05-21-2024 12:03:04 CDT by Rob Millan D.O.
[2024-05-21 12:03] LABS: Basophils Percent Auto 0.8 % (0.2-1.2); Eosinophils Absolute Auto 0.1 K/mm3 (0-0.3); Eosinophils Percent Auto 2.5 % (0-4.4); Hematocrit 37.4 % (37.0-47.0); Hemoglobin 12.1 g/dL (12.0-15.0); Immature Granulocyte Absolute 0.01 K/mm3 (0.00-0.031); Immature Granulocyte Percent A 0.3 % (0-0.5); Lymphocytes Absolute Auto 1.06 K/mm3 (0.9-3.2); Lymphocytes Percent Auto 29.9 % (18.3-44.2); Mean Corpuscular HGB Conc 32.4 g/dl (32-36); Mean Corpuscular Hemoglobin 29.7 pg (26-34); Mean Corpuscular Volume 91.7 fl (80-100); Mean Platelet Volume 10.5 fl (7.4-10.4); Monocytes Absolute Auto 0.4 K/mm3 (0.1-0.6); Monocytes Percent Auto 11.8 % (2.6-8.5); Neutrophils Absolute Auto 1.9 K/mm3 (1.3-6.7); Neutrophils Percent Auto 54.7 % (45.5-73.1); Platelet Count Result 201 k/mm3 (150-375); Red Blood Count 4.08 M/mm3 (4.2-5.4); Red Cell Distribution Width 13.8 % (11.5-14.5); White Blood Count 3.6 K/mm3 (4.5-10.0)
[2024-05-21 12:16] LABS: Albumin Level 4.1 g/dL (3.5-5.1); Anion Gap 8 mmol/L (4-12); Blood Urea Nitrogen 14 mg/dL (7-17); Calcium 9.4 mg/dL (8.4-10.2); Carbon Dioxide 31 mmol/L (22-30); Chloride 97 mmol/L (98-107); Estimated Glomerular Filt Rate > 60; Glucose 90 mg/dL (65-110); Potassium 4.1 mmol/L (3.4-5.0); Sodium 136 mmol/L (137-145); Urine Cotinine NEGATIVE
[2024-05-21 12:32] LABS: Hemoglobin A1C 5.9 % (<5.7)
== END 2024-05-21 10:07 | disposition home or self-care (01) ==
LOC: ANHSURGERY 10:10
PROVIDERS: PCP Family Medicine; Visit Provider Orthopaedic Surgery
DX: M17.11 Unilateral primary osteoarthritis, right knee (principal); Z01.818 Encounter for other preprocedural examination; R94.31 Abnormal electrocardiogram [ECG] [EKG]
CPT/HCPCS: 80048; 80307; 82040; 83036; 85025; 87081; 93005

== ENCOUNTER 2024-05-31 10:17 | Emergency (ER) | payer MEDICARE, SELFPAY ==
[2024-05-31 10:28] VITALS: BP 142/73; PULSE 100; RESP 16; TEMP 37.1; O2SAT 100
[2024-05-31 10:39] LABS: EDCOVIDSCREEN Positive (Negative)
--- NOTE | 2024-05-31 10:50 | ED.URI ---
HPI - URI/Sore Throat General Chief Complaint: Upper Respiratory Infection Stated Complaint: cough,bodyaches,LESLIE COVID exp. Time Seen by Provider: 05/31/24 10:35 Source: patient and RN notes reviewed Mode of arrival: ambulatory Limitations: no limitations History of Present Illness HPI Narrative: Patient presents today complaining of cough, body aches, chills, and chest discomfort with coughing. Symptoms began yesterday. She was exposed to COVID-19 from her brother at home. She has tried TheraFlu without relief. Denies shortness of. Denies history of asthma or COPD. Related Data Home Medications Medication Instructions Recorded Confirmed diltiazem HCl 180 mg 180 mg PO DAILY 12/20/20 05/31/24 capsule,extended release 24 hr hydrochlorothiazide 12.5 mg tablet 12.5 mg PO DAILY 12/20/20 05/31/24 cyclobenzaprine 10 mg tablet 10 mg BID PRN Muscle Spasm 08/30/22 05/31/24 pantoprazole 40 mg tablet,delayed 40 mg PO BID 08/30/22 05/31/24 release aspirin 81 mg capsule 81 mg PO DAILY 02/21/24 05/31/24 magnesium 200 mg tablet 200 mg PO DAILY 02/21/24 05/31/24 meloxicam 15 mg tablet 15 mg PO DAILY 02/21/24 05/31/24 potassium chloride 8 mEq 8 meq PO DAILY 02/21/24 05/31/24 capsule,extended release linaclotide 72 mcg capsule 72 mcg PO PRN PRN Constipation 05/21/24 05/31/24 (Linzess) Allergies Allergy/AdvReac Type Severity Reaction Status Date / Time No Known Allergies Allergy Verified 05/31/24 10:36 Review of Systems Review of Systems: CONSTITUTIONAL: Denies fever, or sweats.+ body aches, chills EYES: Denies visual changes, redness, or discharge. ENT: Denies rhinorrhea, congestion, sore throat, or otalgia. CARDIOVASCULAR: Denies chest pain, palpitations, or edema. RESPIRATORY: Denies dyspnea.+ cough, chest GASTROINTESTINAL: Denies abdominal pain, nausea, vomiting, or diarrhea. GENITOURINARY: Denies dysuria or hematuria. SKIN: Denies rash, itching, or wounds. MUSCULOSKELETAL: Denies back pain, joint pain, or myalgia. NEUROLOGIC: Denies headache, numbness, tingling, or weakness. PSYCH: Denies depression or anxiety. [facility] Past Medical History Medical History Back pain Essential hypertension GERD (gastroesophageal reflux disease) Hypersomnia, idiopathic With MSLT demonstrating hypersomnia in 2016 without evidence of REM sleep achieved so cannot diagnose narcolepsy Obesity (BMI 30.0-34.9) Surgical History Surgical History History of bilateral carpal tunnel release (2002) History of bunionectomy of both great toes History of right breast biopsy (~1999) With benign pathology History of tubal ligation Status post total left knee replacement (09/14/22) Status post trigger finger release Right thumb 2002, left thumb 1996 Family History Family History Other Heart disease Hypertension Social History Social History Social History: 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 Smoking status: Never smoker Second hand tobacco smoke exposure: No Alcohol intake: current Drinks per week: 1 Alcohol use details: occasional Substance use: never Substance use type: does not use Do You Feel Safe in your Home?: Yes Lack of Transportation: No Lack of Food: Never True Current Housing: I Have Housing Concerned About Future Housing: No Difficulty Paying Gas/Electric Bills: No Difficulty Paying for Meds: No Currently Unemployed: Decline to Answer Education: Decline to Answer Difficulty w/ Childcare or Family Care: No Living arrangements: alone Additional living arrangements comments: Brother Gender identity (if verbalized by the patient): Female Spiritual care concerns:
== END 2024-05-31 10:59 | disposition home or self-care (01) ==
PROVIDERS: Emergency Provider Nurse Practitioner
DX: U07.1 COVID-19 (principal); I10 Essential (primary) hypertension; K21.9 Gastro-esophageal reflux disease without esophagitis; E66.9 Obesity, unspecified; Z68.33 Body mass index [BMI] 33.0-33.9, adult
CPT/HCPCS: 87426; 99213; G0463

== ENCOUNTER 2024-06-20 01:36 | Day surgery (SDC) | payer MEDICARE, SELFPAY ==
[2024-05-21 10:02] VITALS: BP 138/88; PULSE 73; RESP 16; TEMP 36.7; O2SAT 100; BMI 34.4
--- NOTE | 2024-05-21 10:10 | PC.NURSE ---
Addendum entered by Kenisha Martínez RN 06/13/24 10:12: Pt called reviewed history and all meds and allergies. Pt did have COVID and took RX for it but is done now, No other changes in PMHX. Pt understands all preop meds and instructions per below with revised dates of surgery, and Preop Hold meds- Last dose of ASA and Melox is 06/12/24 and last dose of Vitamins 06/16/24. Pt verbalizes understanding and has no further s/s Covid at this time. MARTHA Original Note: Report to the Outpatient Waiting Room, entrance under the green pavilion [facility], at time __09:30am__ on date _06/06/24 . Planned Procedure Time: _11:30am .? Time changes happen often and if your time is changed the preop area will call you the afternoon before. - You and your visitor will be asked to self-screen and do not enter if you have any COVID symptoms. Please call surgeon if you need to reschedule. - A mask is optional within the hospital at this time. Patients may have clear liquids (water, carbonated beverages, clear teas, apple juice) until 3 hours prior to surgery with a maximum of 20 ounces. - No food from midnight until time of surgery and no smoking (08:30) Take only the following medications with a SIP of water on the morning of surgery: Diltiazem and Tylenol if needed DO NOT STOP ANY OF YOUR OTHER PRESCRIPTION MEDICATIONS PRIOR TO SURGERY EXCEPT THE FOLLOWING Medications to discontinue per physician Meloxicam & Aspirin for 7 days prior to surgery per Dr. Blood Date to take last dose____05/29/24. HOLD all vitamins and supplements 3 days prior per Anesthesia- Date to take last dose 06/02/24. Please no make-up, nail marshallese, hairspray, perfume, deodorant, or body powder the day of surgery.? No jewelry (including any body piercings) or valuables the day of surgery, leave them at home.? Please take a shower or bath the night before, or the morning of, surgery with an antibacterial soap.? Wear comfortable, loose fitting clothing.? Scrub jonnathan Pierce per Dr Blood. - Jewelry must be removed prior to entering the operating room.? Rings and piercings that are not removed may be cut off. - The hospital will not accept responsibility for valuables.? - Please leave all valuables, including medications, at home the day of surgery. If you are going home after surgery, a licensed new autos delivery driver must drive you home.? - NO public transportation without another adult if you receive anesthesia. - We recommend that an adult stay with you for 24 hours following discharge. - We also recommend that you do not drive, make important decision, drink alcoholic beverages, or take any drugs that were not prescribed by your health care provider for at least 24 hours after your discharge time. Follow any additional instructions given to you from your surgeon. Telephone instructions given to __patient and asked if any additional questions and then verbalized understanding. Patient advised to call surgeon office or pre surgery nurse liaison [phone] if any additional questions.
--- NOTE | 2024-06-19 07:36 | P.HP_ITS ---
H&P: HPI History of Present Illness Date/Time: 06/19/24 07:36 Chief Complaint: Right knee DJD Narrative: 74-year-old female who presents today for a right total knee arthroplasty. She underwent left total knee arthroplasty in August 2022. She is very happy with her results. Patient has severe medial compartment osteoarthritis the right knee. She has been treating this with cortisone injections every 3 months as well as meloxicam 15 mg daily. Last injection was December 10 of this year which gave her couple weeks of improvement of her symptoms. Patient is having pain daily basis. She is having difficulty sleeping at night. She has point where she feels she is ready proceed with total knee arthroplasty on the right. Review of Systems Review of Systems: All systems reviewed & are unremarkable except as noted in HPI and below PMFSH Past Medical History Medical History Back pain Essential hypertension GERD (gastroesophageal reflux disease) Hypersomnia, idiopathic With MSLT demonstrating hypersomnia in 2015 without evidence of REM sleep achieved so cannot diagnose narcolepsy Obesity (BMI 30.0-34.9) Surgical History Surgical History History of bilateral carpal tunnel release (2002) History of bunionectomy of both great toes History of right breast biopsy (~1999) With benign pathology History of tubal ligation Status post total left knee replacement (09/14/22) Status post trigger finger release Right thumb 2002, left thumb 1996 Family History Family History Other Heart disease Hypertension Social History Social History Social History: 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 Smoking status: Never smoker Second hand tobacco smoke exposure: No Alcohol intake: current Drinks per week: 1 Alcohol use details: occasional Substance use: never Substance use type: does not use Do You Feel Safe in your Home?: Yes Lack of Transportation: No Lack of Food: Never True Current Housing: I Have Housing Concerned About Future Housing: No Difficulty Paying Gas/Electric Bills: No Difficulty Paying for Meds: No Currently Unemployed: Decline to Answer Education: Decline to Answer Difficulty w/ Childcare or Family Care: No Living arrangements: alone Additional living arrangements comments: Brother Gender identity (if verbalized by the patient): Female Spiritual care concerns: No Meds Home Medications and Allergies Home Medications Medication Instructions Recorded Confirmed Type diltiazem HCl 180 mg 180 mg PO DAILY 12/20/20 06/13/24 History capsule,extended release 24 hr hydrochlorothiazide 12.5 mg tablet 12.5 mg PO DAILY 12/20/20 06/13/24 History cyclobenzaprine 10 mg tablet 10 mg BID PRN Muscle Spasm 08/30/22 06/13/24 History pantoprazole 40 mg tablet,delayed 40 mg PO BID 08/30/22 06/13/24 History release acetaminophen 500 mg tablet 1,000 mg PO Q6H #90 tabs 09/15/22 06/13/24 Rx polyethylene glycol 3350 17 gram 17 g PO QAM #30 ea 09/15/22 06/13/24 Rx oral powder packet (Miralax) aspirin 81 mg capsule 81 mg PO DAILY 02/21/24 06/13/24 History magnesium 200 mg tablet 200 mg PO DAILY 02/21/24 06/13/24 History potassium chloride 8 mEq 8 meq PO DAILY 02/21/24 06/13/24 History capsule,extended release linaclotide 72 mcg capsule 72 mcg PO PRN PRN Constipation 05/21/24 06/13/24 History (Linzess) meloxicam 15 mg tablet See Rx Instructions .Route 06/03/24 06/13/24 Rx .COMPLEX #30 tabs Allergies Allergy/AdvReac Type Severity Reaction Status Date / Time No Known Allergies Allergy Verified 06/13/24 10:10 Exam Narrative: 74-year-old female alert pleasant. She is 5 ft 3 and 190 lb. BMI is 34.5. Her right knee she has trace effusion. Range of motion is from 8-80 degrees. Normal stability in the knee. Hip range of motion is full without discomfort, negative Stinchfield maneuver. 2+ dorsalis pedis pulse. Normal sensation and no edema in the right lower extremity. Resp: Auscultation: clear to auscultation bilaterally Cardio: Rate: regular rate Rhythm: regular rhythm Assessment and Plan Assessment and plan (1) Primary osteoarthritis of right knee: Code(s): M17.11 - Unilateral primary osteoarthritis, right knee Status: Acute Assessment and Plan: 74-year-old female who has severe medial compartment osteoarthritis in the right knee. She has failed nonsurgical treatment and wishes to proceed with total knee arthroplasty. She did very well with her left knee replacement. She is happy with the results. Surgical procedure well as the risks and complications were discussed in detail all questions were answered and we will proceed. She will stop her meloxicam 1 week prior to surgery. She will continue her baby aspirin through the time surgery. She will see her primary care doctor for pre- surgical clearance. Her nasal swab was negative. Hemoglobin 12.1 platelets whi ch we. Creatinine is 0.90.
--- NOTE | 2024-06-19 14:50 | P.PNAN_ITS ---
Anes - Initial Pre Proc Eval Procedure: Operation Date: 06/20/24 11:30 Proposed Procedures p Right Total Knee Arthroplasty - Domingo Gonzalez MD Date/Time: 06/19/24 14:50 Surgeon: Domingo Gonzalez MD Pre Op Diagnosis: oa right knee Patient Data Age: 74 Gender: F Height: 1.63 m Weight: 91 kg Last Vital Signs Temp 98.0 F 05/21/24 10:02 Pulse 73 05/21/24 10:02 Resp 16 05/21/24 10:02 BP 138/88 05/21/24 10:02 Pulse Ox 100 05/21/24 10:02 O2 Del Method Room Air 05/21/24 10:02 Allergies Allergy/AdvReac Type Severity Reaction Status Date / Time No Known Allergies Allergy Verified 06/13/24 10:10 Home Medications Medication Instructions Recorded Confirmed Type diltiazem HCl 180 mg 180 mg PO DAILY 12/20/20 06/13/24 History capsule,extended release 24 hr hydrochlorothiazide 12.5 mg tablet 12.5 mg PO DAILY 12/20/20 06/13/24 History cyclobenzaprine 10 mg tablet 10 mg BID PRN Muscle Spasm 08/30/22 06/13/24 History pantoprazole 40 mg tablet,delayed 40 mg PO BID 08/30/22 06/13/24 History release acetaminophen 500 mg tablet 1,000 mg PO Q6H #90 tabs 09/15/22 06/13/24 Rx polyethylene glycol 3350 17 gram 17 g PO QAM #30 ea 09/15/22 06/13/24 Rx oral powder packet (Miralax) aspirin 81 mg capsule 81 mg PO DAILY 02/21/24 06/13/24 History magnesium 200 mg tablet 200 mg PO DAILY 02/21/24 06/13/24 History potassium chloride 8 mEq 8 meq PO DAILY 02/21/24 06/13/24 History capsule,extended release linaclotide 72 mcg capsule 72 mcg PO PRN PRN Constipation 05/21/24 06/13/24 History (Linzess) meloxicam 15 mg tablet See Rx Instructions .Route 06/03/24 06/13/24 Rx .COMPLEX #30 tabs Patient hx anesthesia problems: none Family hx anesthesia problems: none Results Review: All pre-operative results and documents have been reviewed as part of the pre- operative evaluation. 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 Smoking status: Never smoker Second hand tobacco smoke exposure: No Alcohol intake: current Drinks per week: 1 Alcohol use details: occasional Substance use: never Substance use type: does not use Do You Feel Safe in your Home?: Yes Lack of Transportation: No Lack of Food: Never True Current Housing: I Have Housing Concerned About Future Housing: No Difficulty Paying Gas/Electric Bills: No Difficulty Paying for Meds: No Currently Unemployed: Decline to Answer Education: Decline to Answer Difficulty w/ Childcare or Family Care: No Living arrangements: alone Additional living arrangements comments: Brother Gender identity (if verbalized by the patient): Female Spiritual care concerns: No Anes - Eval Final PreProcedure Day of Procedure 06/19/24 14:50 Patient weight: obese Heart: regular rate and rhythm Lungs: clear to auscultation Airway: Mallampati scale class II Neurological: alert and oriented Last oral intake: >/= 8 hours ASA classification: III Emergent: no Anesthetic plan: proceed Anesthesia type and monitoring: general ETT and standard monitoring Results Review: All pre-operative results and documents have been reviewed as part of the pre- operative evaluation. Informed Consent: The patient's anesthetic plan and its attendant risks and benefits were discussed with the patient/family/POA. Questions were solicited and answers provided to the satisfaction of the patient/family/POA.
[2024-06-20] VITALS (13 sets, daily range): BP systolic 117–138; BP diastolic 69–87; PULSE 66–82; RESP 10–23; TEMP 36.4–36.9; O2SAT 96–100; BMI 34.2
--- NOTE | ~2024-06-20 | XR_ITS ---
EXAMINATION: [id number] DATE: 06/20/2024 15:26 INDICATION: Postoperative evaluation following right total knee arthroplasty. TECHNIQUE: Anteroposterior and lateral views of the right knee were obtained. COMPARISON: 02/21/2024 FINDINGS: Right total knee arthroplasty with patellar resurfacing appears well seated and in near anatomic alig nment. No fractures identified. Expected postoperative subcutaneous and intra-articular gas. IMPRESSION: 1. Right total knee arthroplasty, negative for postoperative purposes. Reviewed, dictated and finalized at location A.
[2024-06-20] MEDS: LACTATED RINGERS 1,000 ML 30 ML IV CONT ×3 (10:15→15:27)
[2024-06-20] MEDS: VANCOMYCIN 1,250 MG/NS 250 ML BAG 166.67 MG IVPB (10:27)
[2024-06-20] MEDS: ACETAMINOPHEN 500 MG TABLET 1000 MG PO (10:28)
--- NOTE | 2024-06-20 10:31 | WPDHPUPDATE1 ---
History and Physical Update Update Date/Time: 06/20/24 10:31 History and Physical has been reviewed, including an updated exam of the patient. There are NO changes in the patient's condition. Risks, benefits, and alternatives have been discussed and questions answered. Patient agrees to proceed with procedure.
[2024-06-20] MEDS: TRANEXAMIC ACID 1,000MG/ISO100 1,000 MG/100 ML BAG 200 MG IVPB (10:50)
[2024-06-20] MEDS: ceFAZolin 2 GM/D5W 50 ML 2 GM/50 ML BAG IVPB ×2 (10:59→22:12)
[2024-06-20] MEDS: SODIUM CHLORIDE 0.9% IV 37.7 ML, MORPHINE SULFATE INJ (*CRX) 2 MG, ROPivacaine HCL 1% 2... INFILTRATE (14:16)
[2024-06-20] MEDS: ceFAZolin SODIUM 1 GM VIAL 2 GM IV PUSH (14:17)
[2024-06-20] MEDS: KETOROLAC 15 MG/ML VIAL (*BKC) IV PUSH (14:17)
[2024-06-20] MEDS: ceFAZolin SODIUM 1 GM VIAL 3 GM (14:18)
[2024-06-20] MEDS: TRANEXAMIC ACID 1,000 MG/10 ML AMPUL 1000 MG IV PUSH (14:20)
[2024-06-20] MEDS: fentaNYL CITRATE INJ (*CRX) 100 MCG/2 ML VIAL 25 MCG IV PUSH ×6 (15:37→16:04)
--- NOTE | 2024-06-20 15:37 | PM.OP ---
Procedure Note - Brief Procedure Note - Brief Date of procedure: 06/20/24 oa right knee Procedure performed: Right total knee arthroplasty Surgeon: GRISELDA Shetty Findings: 74-year-old female underwent right total knee arthroplasty on 06/20. I was involved in the procedure including positioning the patient on the OR table in 1st assisting through the time surgery. Total time spent was 4 hours
--- NOTE | 2024-06-20 15:45 | P.OP_ITS ---
Procedure Note - Detailed Date of Procedure 06/20/24 Pre-op Diagnosis oa right knee Post-op Diagnosis Same Procedure Performed Right total knee arthroplasty Surgeon Domingo Gonzalez MD Electrical Manager Lauren Anesthesia General Description of Procedure Patient brought the operating room and general anesthesia was administered. She received 2 g of Ancef weight based vancomycin 1 g of TXA preoperatively. Under anesthesia she continued to show a flexion contracture between 15 and 20? and had only 75? of flexion passively with a hard stop. Limb was exsanguinated tourniquet elevated to 300 mmHg. A 7 in longitudinal incision was made. A standard parapatellar arthrotomy utilized. Infrapatellar fat pad partially excised. Quadriceps synovectomy carried out. The patella had prominent hypertrophic changes. It measured 24 mm centrally and was cut to 16 mm. Protector cap was applied. Exposure was difficult due to relative patella baja and an extremely tight quadriceps which was muscular. A conservative lateral facetectomy was performed and synovectomy of the lateral retinaculum performed and adhesions in the suprapatellar pouch released all of which gave better patellar mobility. A guide tristin was inserted on femoral canal after aspiration of canal contents and using the 5 degree valgus cutting bushing, 9 mm of bone removed the distal femur. This removed equal amounts medially and laterally because of medial wear. Next the tibial was cut. Our cut was about flush with the low point medial tibial plateau. Meniscal remnants were excised the PCL recessed. Flexion gap was 6 mm medially at 90? 10 mm laterally. Therefore, an additional 2.5 mm of bone was removed the tibial plateau. Cut was made perpendicular to the axis of the tibia and alignment was confirmed. Flexion gap measured 8 mm medially 12 mm laterally. We applied the femoral sizing applied to the femur set at 5? of external rotation which matched Whitesides line and posterior referencing pinholes were placed. We applied the 65 cutting block but this was going to notch I felt and so we applied the 67.5 cutting block and the AP and chamfer cuts were made. The 67.5 rested on the anterior cortex appropriately but was a little too wide. The tibia was sized to the 71 which fit line to line anteromedial and posterolateral and this was punched at proper rotation. On trialing the 10 was appropriate at 90? of flexion. We lacked about 5-7 degrees of extension with 2 or 3 mm of play laterally no play medially. Posterior femoral osteophyte was removed and medial tibial and posteromedial tibial osteophyte removed after recessing the posteromedial capsule just enough to remove the large osteophytes there. On retrialing the knee came out to near full extension but had a positive bounce the arthrotomy open. There was 1 mm of medial 2 mm of lateral opening. A more complete posterior capsular release was performed this time releasing from the origin of the lateral head of gastrocnemius to medial head gastrocnemius in on read trialing the knee came out to full extension with negative bounce but with the arthrotomy towel there was a positive bounce no play medially. Therefore, an additional mm bone was removed from the distal femur. This point I felt we had appropriate rotation of the femoral component with 2 mm of medial opening 1 mm lateral opening at 90?. We downsized the femoral component using the 65 cutting block. The anterior and the chamfer cuts were revisited in the 65 fit perfectly line to line medial to lateral with a snug fit. Now on trialing the knee came out to full extension with 2 mm of medial opening 2-3 mm of lateral opening and with the arthrotomy towel clipped there was 1 mm of medial opening and negative bounce. Anterior posterior drawer was appropriate in all positions. The patella was sized to a 34 thin and the lug holes drilled. Lug holes drilled the femoral component and patellar tracking was central throughout range of motion. We had put the tourniquet down earlier at 90 minutes and at this time the limb was re-exsanguinated tourniquet elevated to 300 mmHg and the trial components removed the bone surfaces prepped with a step drill thoroughly irrigated and dried. Two batches of methylmethacrylate 1 the gentamicin powder mixed medially applied the 71 vanguard tibial tray then the 65 right CR femoral component cement applied the tibial plateau tibial component fully seated cement applied the femur the femoral component fully seated the knee brought into extension with 11 mm 5 in 1 poly trial for cement pressurization. Thirty-four thin patella cemented. Tourniquet was released at 106 minutes. After cement hardening excess cement was sought for removed and hemostasis was achieved. We trialed and I felt the 10 was appropriate and we placed the 10 without difficulty locking with the locking pin but on repeat trialing the 10 seemed a little bit loose. It seemed that the increased slip redness of the implant give it a little more play her perhaps she was a little deeper under anesthesia but I felt we should trialed the 11 and we removed the 10 insert trialed with the 11 and the knee had full extension negative bounce with 1 mm medial 2 mm lateral opening in appropriate AP stability in all positions with no areas of tightness. Therefore we chose the 11 poly insert which was placed and secured with a new locking clip. Range of motion stability patellar tracking reconfirmed. Local anesthetic cocktail was injected in the periarticular soft tissues and the arthrotomy was closed with 2. Vicryl and 1. Unidirectional barbed suture. Wilson flexion was to 115? passively to 125 and full extension. Skin was close d with 2 subcutaneous Vicryl 3-0 subcuticular Monocryl and glue. EBL was 350 cc. Two additional g of Ancef and a 1 g TXA given time wound closure. There were no complications he was transferred postop recovery room in good condition. MAHNAZ Billing Surgery - Charge Forward: Surgery Billing (R TKA )
[2024-06-20] MEDS: HYDROmorphone HCL INJ (*CRX) 1 MG/ML SYR 0.5 MG IV PUSH ×2 (16:18→16:30)
--- NOTE | 2024-06-20 17:20 | ADMGEN ---
This patient, Tressa Sheridan, was admitted to Medical Room 345-01. Patient/family oriented to hospital policies and general routines including ID bracelet, bed and alarms, visiting hours, pain management, procedures, bathroom and other care routines, personal items, smoking policy, room service/diet, and visiting hours. Information on how to activate the Rapid Response Team has been discussed. Patient/Family are encouraged to report perceived risks to care and to ask questions if they do not understand what they are told or what they should do.
[2024-06-20] MEDS: ACETAMINOPHEN 325 MG TABLET 650 MG PO ×2 (18:12→22:14)
[2024-06-20] MEDS: SENNA/DOCUSATE SODIUM TABLET 2 TAB PO (18:12)
[2024-06-20] MEDS: oxyCODONE HCL (*CRX) 5 MG TAB IR PO ×2 (18:13→22:15)
[2024-06-20] MEDS: SODIUM CHLORIDE 0.9% IV 1,000 ML 125 ML IV CONT (18:13)
--- NOTE | 2024-06-20 18:31 | P.CONIM_ITS ---
Assessment and Plan Assessment and plan (1) Primary osteoarthritis of right knee: Code(s): M17.11 - Unilateral primary osteoarthritis, right knee Status: Acute Assessment and Plan: * status post right total knee arthroplasty performed by Dr. Gonzalez * continue full weight-bearing status as tolerated * PT and OT ordered * continue incentive spirometry q.2 hours while awake * continue pain and nausea control * continue Eliquis 2.5 mg p.o. b.i.d. her orthopedic surgery recommendation * advance diet as tolerated to regular diet * continue neurovascular checks * Case Management consulted for outpatient rehab needs (2) Essential hypertension: Code(s): I10 - Essential (primary) hypertension Status: Acute Assessment and Plan: * blood pressures ranging 117/79-136/81 * continue hydrochlorothiazide 12.5 mg p.o. daily HPI Date of Consult Consult date: 06/20/24 Requesting Physician: Domingo Gonzalez MD Primary Care Provider: Anais Bach, Consult Narrative Narrative: Tressa Sheridan is a 74 year old female with a significant past medical history hypertension, GERD, idiopathic hypersomnia, back pain who presented to the hospital today for an elective right total knee arthroplasty. Patient denies any fever, chills, vomiting, diarrhea, abdominal pain, chest pain, shortness of breath. Patient endorses neck pain/stiffness and postoperative nausea. She states her pain in the knee is well controlled. We were consulted for medical management while inpatient. Review of Systems Review of Systems: All systems reviewed & are unremarkable except as noted in HPI and below Constitutional: Constitutional: Reports as per HPI and Reports no additional constitutional complaints Eyes: Eyes: Reports as per HPI and Reports no additional eye complaints ENT: Reports system reviewed and no additional complaints, except as documented and Reports as per HPI Cardiovascular: Cardiovascular: Reports as per HPI and Reports no additional cardiovascular complaints Respiratory: Respiratory: Reports as per HPI and Reports no additional respiratory complaints Gastrointestinal: Gastrointestinal: Reports as per HPI and Reports no additional gastrointestinal complaints Genitourinary: Genitourinary: Reports no additional female genitourinary complaints and Reports as per HPI Musculoskeletal: Musculoskeletal: Reports no additional musculoskeletal complaints and Reports as per HPI Integumentary/Breasts: Skin/Breast: Reports system reviewed and no additional complaints, except as docu and Reports as per HPI Neurologic: Reports system reviewed and no additional complaints, except as documented and Reports as per HPI Psychiatric: Psychiatric: Reports no additional psychiatric complaints and Reports as per HPI Endocrine: Endocrine: Reports no additional endocrine complaints and Reports as per HPI Hematologic/Lymphatic: Hematologic/Lymphatic: Reports no additional hem atologic/lymphatic complaints and Reports as per HPI Allergic/Immunologic: Allergic/Immunologic: Reports no additional allergic/immunologic complaints and Reports as per HPI [facility] Past Medical History Medical History Back pain Essential hypertension GERD (gastroesophageal reflux disease) Hypersomnia, idiopathic With MSLT demonstrating hypersomnia in 2016 without evidence of REM sleep achieved so cannot diagnose narcolepsy Obesity (BMI 30.0-34.9) Surgical History Surgical History History of bilateral carpal tunnel release (2002) History of bunionectomy of both great toes History of right breast biopsy (~1999) With benign pathology History of tubal ligation Status post total left knee replacement (09/14/22) Status post total right knee replacement Status post trigger finger release Right thumb 2002, left thumb 1996 Family History Family History Other Heart disease Hypertension Social History Social History Social History: 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 Brother who moved recently from [place] in now living with her. Smoking status: Never smoker Second hand tobacco smoke exposure: No Alcohol intake: current Drinks per week: 1 Alcohol use details: occasional Substance use: never Substance use type: does not use Do You Feel Safe in your Home?: Yes Lack of Transportation: No Lack of Food: Never True Current Housing: I Have Housing Concerned About Future Housing: No Difficulty Paying Gas/Electric Bills: No Difficulty Paying for Meds: No Currently Unemployed: Decline to Answer Education: Decline to Answer Difficulty w/ Childcare or Family Care: No Living arrangements: alone Additional living arrangements comments: Brother Gender identity (if verbalized by the patient): Female Spiritual care concerns: No Meds Home Medications and Allergies Home Medications Medication Instructions Recorded Confirmed Type diltiazem HCl 180 mg 180 mg PO DAILY 12/20/20 06/20/24 History capsule,extended release 24 hr hydrochlorothiazide 12.5 mg tablet 12.5 mg PO DAILY 12/20/20 06/13/24 History cyclobenzaprine 10 mg tablet 10 mg BID PRN Muscle Spasm 08/30/22 06/13/24 History pantoprazole 40 mg tablet,delayed 40 mg PO BID 08/30/22 06/13/24 History release acetaminophen 500 mg tablet 1,000 mg PO Q6H #90 tabs 09/15/22 06/13/24 Rx polyethylene glycol 3350 17 gram 17 g PO QAM #30 ea 09/15/22 06/13/24 Rx oral powder packet (Miralax) aspirin 81 mg capsule 81 mg PO DAILY 02/21/24 06/20/24 History magnesium 200 mg tablet 200 mg PO DAILY 02/21/24 06/20/24 History potassium chloride 8 mEq 8 meq PO DAILY 02/21/24 06/20/24 History capsule,extended release linaclotide 72 mcg capsule 72 mcg PO PRN PRN Constipation 05/21/24 06/13/24 History (Linzess) meloxicam 15 mg tablet See Rx Instructions .Route 06/03/24 06/20/24 Rx .COMPLEX #30 tabs Allergies Allergy/AdvReac Type Severity Reaction Status Date / Time No Known Allergies Allergy Verified 06/20/24 11:09 Vital Signs Vital Signs - 24 hr 06/20/24 09:40 06/20/24 15:27 06/20/24 15:40 Temperature 97.5 F L 98.4 F Pulse Rate 81 82 70 Respiratory Rate 18 23 H 13 Blood Pressure 138/87 127/72 124/71 Pulse Oximetry 99 100 100 Oxygen Delivery Room Air Simple Face Mask Simple Face Mask Oxygen Flow Rate 10 10 06/20/24 15:55 06/20/24 16:10 06/20/24 16:25 Temperature Pulse Rate 72 71 68 Respiratory Rate 11 L 23 H 13 Blood Pressure 127/69 119/71 124/77 Pulse Oximetry 96 98 100 Oxygen Delivery Room Air Nasal Cannula Nasal Cannula Oxygen Flow Rate 2 2 06/20/24 16:40 06/20/24 16:55 06/20/24 17:30 Temperature 97.9 F Pulse Rate 67 66 67 Respiratory Rate 14 10 L 16 Blood Pressure 117/79 122/75 136/81 Pulse Oximetry 100 100 100 Oxygen Delivery Nasal Cannula Nasal Cannula Oxygen Flow Rate 2 2 06/20/24 17:45 Temperature 98.0 F Pulse Rate 69 Respiratory Rate 16 Blood Pressure 135/78 Pulse Oximetry 100 Oxygen Delivery Oxygen Flow Rate Exam Narrative: General: In no acute distress, well nourished Head: atraumatic, no encephalopathy Eyes: EOMI, PERRLA, sclera clear ENT: moist mucous membranes, nasal passages clear Neck: reporting neck pain and stiffness Cardiac: Normal S1 and S2. No murmur, gallops or friction rubs, peripheral pulses intact. Respiratory: Lungs clear to auscultation, no adventitious lung sounds, currently on room air Gastrointestinal: soft, non-distended, non-tender, hypoactive bowel sounds. Reports nausea : voiding without difficulty. Extremities: moves all extremities well, mild right knee edema Skin:right knee surgical dressing clean, dry and intact Neuro: Alert and oriented x4, cranial nerves intact, no neuro deficits. Psych: normal mood, normal affect, interactive Results Imaging Radiologist's impression: EXAMINATION: [id number] DATE: 06/20/2024 15:26 INDICATION: Postoperative evaluation following right total knee arthroplasty. TECHNIQUE: Anteroposterior and lateral views of the right knee were obtained. COMPARISON: 02/21/2024 FINDINGS: Right total knee arthroplasty with patellar resurfacing appears well seated and in near anatomic alignment. No fractures identified. Expected postoperative subcutaneous and intra-articular gas. IMPRESSION: 1. Right total knee arthroplasty, negative for postoperative purposes. Reviewed, dictated and finalized at location A. Quality VTE Prophylaxis VTE prophylaxis: mechanical ordered and pharmacologic ordered Hospitalist MIPS Advance Care Plan I have confirmed that the patient's Advanced Care Plan is present, code status is documented, or surrogate decision maker is listed in patient medical record.: Yes Medication Reconciliation I have utilized all available resources to obtain, update and review the patients current medications (includes all prescriptions, OTC, herbals, cannabis, and nutritional supplements).: Yes
[2024-06-20] MEDS: KETOROLAC 15 MG/ML VIAL (*BKC) 7.5 MG IV PUSH (22:14)
[2024-06-20] MEDS: FAMOTIDINE 20 MG TABLET PO (22:15)
[2024-06-20] MEDS: VANCOMYCIN 1,000 MG/NS 250 ML 1,000 MG/250 ML BAG 250 MG IVPB (22:16)
[2024-06-20] MEDS: ONDANSETRON INJ 4 MG/2 ML VIAL IV PUSH (22:23)
[2024-06-21 02:40] VITALS: BP 138/70; PULSE 76; RESP 18; TEMP 37.1; O2SAT 100
[2024-06-21] MEDS: KETOROLAC 15 MG/ML VIAL (*BKC) 7.5 MG IV PUSH (03:21)
[2024-06-21] MEDS: oxyCODONE HCL (*CRX) 5 MG TAB IR PO ×4 (03:22→13:04)
[2024-06-21] MEDS: ACETAMINOPHEN 325 MG TABLET 650 MG PO ×4 (03:22→13:03)
[2024-06-21] MEDS: ceFAZolin 2 GM/D5W 50 ML 2 GM/50 ML BAG IVPB ×2 (03:24→12:26)
[2024-06-21 05:59] LABS: Hematocrit 26.9 % (37.0-47.0); Hemoglobin 8.8 g/dL (12.0-15.0); Immature Granulocyte Absolute 0.05 K/mm3 (0.00-0.031); Immature Granulocyte Percent A 0.5 % (0-0.5); Lymphocytes Absolute Auto 0.64 K/mm3 (0.9-3.2); Lymphocytes Percent Auto 6.9 % (18.3-44.2); Mean Corpuscular HGB Conc 32.7 g/dl (32-36); Mean Corpuscular Hemoglobin 29.7 pg (26-34); Mean Corpuscular Volume 90.9 fl (80-100); Mean Platelet Volume 9.9 fl (7.4-10.4); Monocytes Absolute Auto 1.1 K/mm3 (0.1-0.6); Monocytes Percent Auto 11.3 % (2.6-8.5); Neutrophils Absolute Auto 7.5 K/mm3 (1.3-6.7); Neutrophils Percent Auto 81.3 % (45.5-73.1); Platelet Count Result 166 k/mm3 (150-375); Red Blood Count 2.96 M/mm3 (4.2-5.4); Red Cell Distribution Width 13.9 % (11.5-14.5); White Blood Count 9.3 K/mm3 (4.5-10.0)
[2024-06-21 06:07] LABS: Anion Gap 4 mmol/L (4-12); Blood Urea Nitrogen 13 mg/dL (7-17); Calcium 8.2 mg/dL (8.4-10.2); Carbon Dioxide 26 mmol/L (22-30); Chloride 99 mmol/L (98-107); Estimated CRCL calculation 52 ml/min; Estimated Glomerular Filt Rate > 60; Glucose 116 mg/dL (65-110); Potassium 3.6 mmol/L (3.4-5.0); Sodium 129 mmol/L (137-145)
[2024-06-21 06:51] VITALS: BP 108/65; PULSE 72; RESP 16; TEMP 36.7; O2SAT 98
--- NOTE | 2024-06-21 07:40 | WPDANESPN ---
Anes - Prog Note Post-Op Date/Time: 06/21/24 07:40 Cardiovascular status: normal Respiratory status: normal Airway patency: baseline Mental status: baseline Post-Op hydration status: normal Vital Signs: Last Vital Signs Temp 36.7 C 06/21/24 06:51 Pulse 72 06/21/24 06:51 Resp 16 06/21/24 06:51 BP 108/65 06/21/24 06:51 Pulse Ox 98 06/21/24 06:51 O2 Del Method Room Air 06/20/24 21:28 O2 Flow Rate 2 06/20/24 16:55 Pain Score (VAS): 10/07 I/O: Intake & Output 06/20/24 06/20/24 06/21/24 15:59 23:59 07:59 Intake Total 50 500 450 Output Total 600 400 Balance 50 -100 50 Laboratory Tests 06/21/24 05:42 06/21/24 05:42 06/20/24 06/21/24 10:12 05:42 WBC 9.3 RBC 2.96 L Hgb 8.8 L D Hct 26.9 L MCV 90.9 MCH 29.7 MCHC 32.7 RDW 13.9 Plt Count 166 MPV 9.9 Immature Gran % (Auto) 0.5 Neut % (Auto) 81.3 H Lymph % (Auto) 6.9 L [place] % (Auto) 11.3 H Eos % (Auto) 0.0 Baso % (Auto) 0.0 L Lymph # (Auto) 0.64 L [place] # (Auto) 1.1 H Eos # (Auto) 0.0 Baso # (Auto) 0.0 Abs Immat Gran (auto) 0.05 H Absolute Neuts (auto) 7.5 H Absolute Nucleated RBC 0.000 Nucleated RBC % 0.0 Sodium 129 L Potassium 3.6 Chloride 99 Carbon Dioxide 26 Anion Gap 4 BUN 13 Creatinine 0.90 Estim Creat Clear Calc 52 Estimated GFR > 60 Glucose 116 H Calcium 8.2 L Blood Type O Positive Antibody Screen Negative Post-procedural complaints: none Patient Feedback: Patient satisfied with anesthetic care.
--- NOTE | 2024-06-21 08:27 | PM.PNORT ---
Subjective Subjective Date/Time Seen: 06/21/24 08:27 Interval history: Postop day 1 patient is alert. She is afebrile vital signs are stable. Labs are noted. Hemoglobin was 8.8 this morning. Looking back at her labs when she had her left knee replaced in August 2022 she had the same change and her hemoglobin from preop to postop day 1. Patient is asymptomatic from this. She is having some nausea that started immediately postoperatively. She had 1 bout of emesis last night but no recurrence of that. I am going to give her a dose of Decadron this morning that should help with the nausea as well as the pain. Overall pain is tolerable. She has been up to the restroom and urinating overnight. Her dressing is dry and intact. Neurovascularly she is intact. She is complaining a bit of a headache as well this morning which is most likely from anesthesia as well as the pain medicine and also patient has not eaten much since the time surgery. Plan will be to have the patient work with therapy this morning and again this afternoon. If she is doing well this afternoon she will be discharged home Objective Data Vital Signs Vital Signs: Vital Signs - 24 hr 06/20/24 09:40 06/20/24 15:27 06/20/24 15:40 Temperature 97.5 F L 98.4 F Pulse Rate 81 82 70 Respiratory Rate 18 23 H 13 Blood Pressure 138/87 127/72 124/71 Pulse Oximetry 99 100 100 Oxygen Delivery Room Air Simple Face Mask Simple Face Mask Oxygen Flow Rate 10 10 06/20/24 15:55 06/20/24 16:10 06/20/24 16:25 Temperature Pulse Rate 72 71 68 Respiratory Rate 11 L 23 H 13 Blood Pressure 127/69 119/71 124/77 Pulse Oximetry 96 98 100 Oxygen Delivery Room Air Nasal Cannula Nasal Cannula Oxygen Flow Rate 2 2 06/20/24 16:40 06/20/24 16:55 06/20/24 17:30 Temperature 97.9 F Pulse Rate 67 66 67 Respiratory Rate 14 10 L 16 Blood Pressure 117/79 122/75 136/81 Pulse Oximetry 100 100 100 Oxygen Delivery Nasal Cannula Nasal Cannula Oxygen Flow Rate 2 2 06/20/24 17:45 06/20/24 18:36 06/20/24 22:38 Temperature 98.0 F 98.3 F Pulse Rate 69 77 Respiratory Rate 16 18 Blood Pressure 135/78 135/77 Pulse Oximetry 100 98 100 Oxygen Delivery Room Air Oxygen Flow Rate 06/20/24 21:28 06/21/24 02:40 06/21/24 06:51 Temperature 98.8 F 98.1 F Pulse Rate 76 72 Respiratory Rate 18 16 Blood Pressure 138/70 108/65 Pulse Oximetry 97 100 98 Oxygen Delivery Room Air Oxygen Flow Rate Intake/Output Intake/Output: Intake & Output 06/18/24 06/19/24 06/20/24 06/21/24 23:59 23:59 23:59 23:59 Intake Total 550 450 Output Total 600 400 Balance -50 50 Meds/Results Medications: Active Medications Generic Name Dose Route Start Last Admin Trade Name Freq PRN Reason Stop Dose Admin Acetaminophen 650 mg 06/20/24 18:00 06/21/24 06:51 Acetaminophen 325 Mg Tablet PO 650 mg Q4H OSCAR Administration Apixaban 2.5 mg 06/21/24 09:00 Apixaban 2.5 Mg Tablet PO 07/02/24 21:01 Q12HR OSCAR Aspirin 81 mg 06/21/24 09:00 Aspirin 81 Mg Enteric Tablet PO QAM OSCAR Cefdinir 300 mg 06/21/24 09:00 Cefdinir 300 Mg Capsule PO Q12HR OSCAR Cyclobenzaprine HCl 10 mg 06/20/24 17:08 Cyclobenzaprine Hcl 10 Mg Tablet PO Q8H PRN Spasms Diltiazem HCl 180 mg 06/21/24 09:00 Diltiazem Hcl Cd 180 Mg Cap.24hr PO DAILY OSCAR Diphenhydramine HCl 25 mg 06/20/24 17:08 Diphenhydramine Hcl Inj 50 Mg/Ml Vial IV PUSH Q6H PRN Itching Famotidine 20 mg 06/20/24 21:00 06/20/24 22:15 Famotidine 20 Mg Tablet PO 20 mg Q12HR OSCAR Administration Hydrochlorothiazide 12.5 mg 06/21/24 09:00 Hydrochlorothiazide 12.5 Mg Capsule PO DAILY OSCAR Cefazolin Sodium 2 gm in 50 mls @ 100 mls/hr 06/20/24 19:00 06/21/24 03:24 Ancef 2 Gm/D5w 50 Ml IVPB 06/21/24 11:29 100 mls/hr Q8H OSCAR Administration Vancomycin HCl 1,000 mg in 250 mls @ 250 mls/hr 06/20/24 22:00 06/20/24 23:46 Vancomycin 1,000 Mg/Ns 250 Ml IVPB 06/21/24 10:59 Infused Q12H OSCAR Infusion Linaclotide 72 mcg 06/20/24 17:08 Linaclotide 72 Mcg Capsule PO PRN PRN Constipation Morphine Sulfate 2 mg 06/20/24 17:08 Morphine Sulfate (*Crx) 2 Mg/Ml Inj IV PUSH Q2H PRN Breakthrough Pain Rated 4-6 or NPO Naloxone HCl 0.1 mg 06/20/24 17:08 Naloxone Hcl 0.4 Mg/Ml Vial IV PUSH Q2M PRN Opiate Reversal Ondansetron HCl 4 mg 06/20/24 17:08 06/20/24 22:23 Ondansetron Inj 4 Mg/2 Ml Vial IV PUSH 4 mg Q4H PRN Administration Nausea And Vomiting Oxycodone HCl 5 mg 06/20/24 18:00 06/21/24 06:51 Oxycodone Hcl (*Crx) 5 Mg Tab Ir PO 5 mg Q4H OSCAR Administration Oxycodone HCl 5 mg 06/20/24 17:08 Oxycodone Hcl (*Crx) 5 Mg Tab Ir PO Q4H PRN Pain Rated 7-10 Polyethylene Glycol 17 gm 06/21/24 09:00 Polyethylene Glycol 3350 17 Gm Powd.Pack PO QAM OSCAR Potassium Chloride 10 meq 06/21/24 09:00 Potassium Chloride 10 Meq Er Tablet PO 07/21/24 08:59 DAILY OSCAR Senna/Docusate Sodium 2 tab 06/20/24 17:08 06/20/24 18:12 Senna/Docusate Sodium Tablet PO 2 tab BID OSCAR Administration Radiology Results: ITS Impressions Knee X-Ray 06/20/24 15:30 IMPRESSION: 1. Right total knee arthroplasty, negative for postoperative purposes. Labs Labs: Laboratory Results - last 24 hr 06/20/24 06/21/24 10:12 05:42 WBC 9.3 RBC 2.96 L Hgb 8.8 L D Hct 26.9 L MCV 90.9 MCH 29.7 MCHC 32.7 RDW 13.9 Plt Count 166 MPV 9.9 Immature Gran % (Auto) 0.5 Neut % (Auto) 81.3 H Lymph % (Auto) 6.9 L [place] % (Auto) 11.3 H Eos % (Auto) 0.0 Baso % (Auto) 0.0 L Lymph # (Auto) 0.64 L [place] # (Auto) 1.1 H Eos # (Auto) 0.0 Baso # (Auto) 0.0 Abs Immat Gran (auto) 0.05 H Absolute Neuts (auto) 7.5 H Absolute Nucleated RBC 0.000 Nucleated RBC % 0.0 Sodium 129 L Potassium 3.6 Chloride 99 Carbon Dioxide 26 Anion Gap 4 BUN 13 Creatinine 0.90 Estim Creat Clear Calc 52 Estimated GFR > 60 Glucose 116 H Calcium 8.2 L Blood Type O Positive Antibody Screen Negative
[2024-06-21] MEDS: ONDANSETRON INJ 4 MG/2 ML VIAL IV PUSH (08:58)
[2024-06-21] MEDS: VANCOMYCIN 1,000 MG/NS 250 ML 1,000 MG/250 ML BAG 250 MG IVPB (09:00)
[2024-06-21] MEDS: ASPIRIN 81 MG ENTERIC TABLET PO (09:02)
[2024-06-21] MEDS: CEFDINIR 300 MG CAPSULE PO (09:02)
[2024-06-21] MEDS: APIXABAN 2.5 MG TABLET PO (09:02)
[2024-06-21] MEDS: polyethylene glycoL 3350 17 GM POWD.PACK PO (09:02)
[2024-06-21] MEDS: SENNA/DOCUSATE SODIUM TABLET 2 TAB PO (09:02)
[2024-06-21] MEDS: POTASSIUM CHLORIDE 10 MEQ ER TABLET PO (09:02)
[2024-06-21] MEDS: FAMOTIDINE 20 MG TABLET PO (09:02)
[2024-06-21] MEDS: dilTIAZem HCL CD 180 MG CAP.24HR PO (09:04)
[2024-06-21] MEDS: hydroCHLOROthiazide 12.5 MG CAPSULE PO (09:05)
[2024-06-21] MEDS: dexAMETHasone SOD PHOS INJ 10 MG/ML 1 ML VIAL IV PUSH (09:10)
--- NOTE | 2024-06-21 09:40 | P.DS_ITS ---
DS: Admitting Diagnosis Discharge Date 06/21 Admitting Diagnosis Right knee DJD DS: Discharge Diagnosis Discharge Diagnosis (1) Primary osteoarthritis of right knee: Code(s): M17.11 - Unilateral primary osteoarthritis, right knee Status: Acute DS: Summary Hospital Course Hospital Course: 74-year-old female who underwent right total knee arthroplasty on 06/20. Postoperatively she has been afebrile vital signs are stable. She has had some nausea postoperatively as well as the headache. She had 1 bout of emesis the afternoon of surgery but no recurrence. Morning of postop day 1 patient was alert and comfortable. Still complaining of a slight headache. She was given a dose of Decadron for that. She has been on Tylenol every 4 hours oxycodone every 4 hours for pain control. We also have Flexeril ordered p.r.n. for pain control. She is not on any anti-inflammatories. She has maintained her baby aspirin through the time surgery and therefore were not going to use anti- inflammatories well she is on the Eliquis. When she is off the Eliquis we will resume her Mobic 15 mg. Patient will be discharged home on 06/21. Morning of postop day 1 patient's dressing was dry and intact. Neurovascularly she is intact. Patient will go home with a 1 week course of Omnicef. She also go home with Senokot. She uses MiraLax on a regular basis at home and will continue with that. Patient was on Tylenol every 4 hours in the hospital, 650 mg. She states she has 500 mg pills at home and would rather do the 1000 mg every 6 hours as she did with her left knee replacement 18 months ago. Patient was advised to keep leg elevated home prevent swelling but do her exercises on hourly basis. She had a very stiff knee prior to surgery and she is going to need a lot of work on her part to achieve her full range of motion. Outpatient therapy starts on Monday. Patient's hemoglobin on postop day was 8.8. Looking back at her labs when she had her left knee replaced she had approximately the same drop in hemoglobin from preop to the morning of postop day 1. Patient was having no symptoms from the lower blood count. She was advised any questions or concerns she is to call the office otherwise we will see her at her appointment Time Spent with Patient Time attestation: Total time spent providing and/or coordinating discharge services: DS: Data Data Completed and Pending Labs on day of discharge: Labs from last 24 hours 06/21/24 06/20/24 05:42 10:12 WBC 9.3 RBC 2.96 L Hgb 8.8 L D Hct 26.9 L MCV 90.9 MCH 29.7 MCHC 32.7 RDW 13.9 Plt Count 166 MPV 9.9 Immature Gran % (Auto) 0.5 Neut % (Auto) 81.3 H Lymph % (Auto) 6.9 L [place] % (Auto) 11.3 H Eos % (Auto) 0.0 Baso % (Auto) 0.0 L Lymph # (Auto) 0.64 L [place] # (Auto) 1.1 H Eos # (Auto) 0.0 Baso # (Auto) 0.0 Abs Immat Gran (auto) 0.05 H Absolute Neuts (auto) 7.5 H Absolute Nucleated RBC 0.000 Nucleated RBC % 0.0 Sodium 129 L Potassium 3.6 Chloride 99 Carbon Dioxide 26 Anion Gap 4 BUN 13 Creatinine 0.90 Estim Creat Clear Calc 52 Estimated GFR > 60 Glucose 116 H Calcium 8.2 L Blood Type O Positive Antibody Screen Negative Discharge Plan Discharge Patient Disposition: Home, Self-Care Discharge Instructions: DOMINGO GONZALEZ M.D [facility] [address] [place] [address] [address] [place] [address] POST-OPERATIVE DISCHARGE INSTRUCTIONS TOTAL KNEE ARTHROPLASTY 1. When resting, do not rest in the chair.When resting, lie on your back, with back flat on the couch or bed, with leg elevated above heart to minimize swelling. You may put a pillow under your head. . Significant swelling could indicate a blood clot and if this occurs call the office (or go to the ER) to have a venous ultrasound. Therefore, do not rest in a chair. 2. At least five times a day spend several minutes stretching your knee into flexion while sitting in the chair and also stretching your knee out straight The abilities to bend your knee fully and straighten your knee fully are two most important knee functions to focus on during your recovery. 3. It is ok to sit in chair to eat, use the toilet and receive a guest and to do your stretching exercises, but, sitting in a chair will cause your leg to swell. Therefore, avoid additional time sitting in the chair. and don't rest in the chair. 4. Wound Care: Nursing will give you an additional Mepilex dressing at the time of discharge. Patient to remove the dressing and apply a new Mepilex dressing at home 7 days after surgery and leave the dressing on until seen in office. It is normal to see a small amount of blood on the silver pad of the Mepilex dressing. Its designed to hold small spots of blood. However, if the blood reaches the edge of the pad up to the boarder of the clear membrane that surrounds the pad, the pad is saturated and the Mepilex dressing should be removed and a new Mepilex dressing should be applied. 5. May shower with a Mepilex dressing in place.The water will run off the dressing. 6. Unless you are told otherwise, you may put full weight on your operated leg. Use a walker for balance and practice walking as normally as you can, ideally for a few minutes every hour while you are awake. 7. I would advise against putting ice packs on your knee incision. Ice constricts blood flow which can impar healing of the knee incision. IMPORTANT: Remember not to sit in the chair for more than 30 minutes at a time. As a rule, during the first 14 days after surgery, only sit in the chair to wo rk on the chair knee bending stretch exercise, for meals or for use of the restroom. Sitting in the chair promotes significant swelling in the knee and leg which will make your knee stiff and more painful and which simulates having a blood clot in the veins of the leg. If this type of significant diffuse swelling occurs, an ultrasound at the hospital will be necessary to rule out a blood clot. Be up walking around with the walker for a few minutes every hour while awake and then rest laying on your back on the couch or in bed with your leg elevated on cushions or pillows. Do not rest in the chair. Stand Alone Forms: General Discharge Instructions Follow-up/Referrals: Domingo Gonzlaez MD [Physician] - Keep Reg. Scheduled Appt. Discharge Medications: New Eliquis 2.5 mg Tablet 2.5 mg PO Q12HR Qty: 40 0RF sennosides-docusate sodium [Senokot-S] 8.6-50 mg Tablet 2 tab PO BID Qty: 60 0RF cefdinir 300 mg Capsule 300 mg PO Q12HR Qty: 14 0RF oxycodone 5 mg Tablet 5 mg PO Q4H PRN (Reason: Pain Rated 7-10) Qty: 40 0RF Continued hydrochlorothiazide 12.5 mg tablet 12.5 mg PO DAILY diltiazem HCl 180 mg capsule,extended release 24hr 180 mg PO DAILY Patient Comments: QAM aspirin 81 mg capsule 81 mg PO DAILY potassium chloride 8 mEq capsule, extended release 8 meq PO DAILY magnesium 200 mg tablet 200 mg PO DAILY cyclobenzaprine 10 mg tablet 10 mg BID PRN (Reason: Muscle Spasm) pantoprazole 40 mg tablet,delayed release (DR/EC) 40 mg PO BID acetaminophen 500 mg Tablet 1,000 mg PO Q6H Qty: 90 0RF polyethylene glycol 3350 [Miralax] 17 gram Powder In Packet 17 g PO QAM Qty: 30 0RF Linzess 72 mcg capsule 72 mcg PO PRN PRN (Reason: Constipation) Discontinued meloxicam 15 mg tablet See Rx Instructions .ROUTE .COMPLEX Qty: 30 1RF Dose Instruction: TAKE 1 TABLET BY MOUTH EVERY DAY Rx Instructions: TAKE 1 TABLET BY MOUTH EVERY DAY
--- NOTE | 2024-06-21 13:56 | P.PNIM_ITS ---
Progress Note: A&P Assessment and Plan (1) Primary osteoarthritis of right knee: Code(s): M17.11 - Unilateral primary osteoarthritis, right knee Status: Acute Assessment and Plan: * status post right total knee arthroplasty performed by Dr. Gonzalez * continue full weight-bearing status as tolerated * PT and OT * continue incentive spirometry q.2 hours while awake * continue pain and nausea control * continue Eliquis 2.5 mg p.o. b.i.d. her orthopedic surgery recommendation * advance diet as tolerated to regular diet * continue neurovascular checks * Case Management consulted for outpatient rehab need (2) Essential hypertension: Code(s): I10 - Essential (primary) hypertension Status: Acute Assessment and Plan: Patient's blood pressure was reviewed on 06/21 Blood pressure remains well controlled. Will continue to monitor Subjective Date/time seen: 06/21/24 13:56 Interval history: 74yo female with HTN here for elective right TKA. She complains of headache and nausea since the surgery. No vision changes. She is up walking in the rom. No hx of migraines. No Cp or SOB. Exam Narrative: AF 98.1 108/65 72 16 98% ra Gen - NARD sitting at the side of the bed Chest - CTA bilaterally, nml RR CV - RRR S1/S2 Abd - Soft, NT/ND, Positive BS Ext - trace RLE pedal edema. Right knee dressing is clean, dry and intact. Neuro - Alert and oriented. Nonfocal exam. Psych - Nml mood and affect Skin - Warm and dry Objective Data Vital Signs Vital Signs: Vital Signs - 24 hr 06/20/24 15:27 06/20/24 15:40 06/20/24 15:55 Temperature 98.4 F Pulse Rate 82 70 72 Respiratory Rate 23 H 13 11 L Blood Pressure 127/72 124/71 127/69 Pulse Oximetry 100 100 96 Oxygen Delivery Simple Face Mask Simple Face Mask Room Air Oxygen Flow Rate 10 10 06/20/24 16:10 06/20/24 16:25 06/20/24 16:40 Temperature Pulse Rate 71 68 67 Respiratory Rate 23 H 13 14 Blood Pressure 119/71 124/77 117/79 Pulse Oximetry 98 100 100 Oxygen Delivery Nasal Cannula Nasal Cannula Nasal Cannula Oxygen Flow Rate 2 2 2 06/20/24 16:55 06/20/24 17:30 06/20/24 17:45 Temperature 97.9 F 98.0 F Pulse Rate 66 67 69 Respiratory Rate 10 L 16 16 Blood Pressure 122/75 136/81 135/78 Pulse Oximetry 100 100 100 Oxygen Delivery Nasal Cannula Oxygen Flow Rate 2 06/20/24 18:36 06/20/24 22:38 06/20/24 21:28 Temperature 98.3 F Pulse Rate 77 Respiratory Rate 18 Blood Pressure 135/77 Pulse Oximetry 98 100 97 Oxygen Delivery Room Air Room Air Oxygen Flow Rate 06/21/24 02:40 06/21/24 06:51 06/21/24 08:29 Temperature 98.8 F 98.1 F Pulse Rate 76 72 Respiratory Rate 18 16 Blood Pressure 138/70 108/65 Pulse Oximetry 100 98 Oxygen Delivery Room Air Oxygen Flow Rate 06/21/24 09:32 Temperature Pulse Rate Respiratory Rate Blood Pressure Pulse Oximetry Oxygen Delivery Room Air Oxygen Flow Rate Intake/Output Intake/Output: Intake & Output 06/18/24 06/19/24 06/20/24 06/21/24 23:59 23:59 23:59 23:59 Intake Total 550 860 Output Total 600 400 Balance -50 460 Meds/Results Medications: Active Medications Generic Name Dose Route Start Last Admin Trade Name Freq PRN Reason Stop Dose Admin Acetaminophen 650 mg 06/20/24 18:00 06/21/24 13:03 Acetaminophen 325 Mg Tablet PO 650 mg Q4H OSCAR Administration Apixaban 2.5 mg 06/21/24 09:00 06/21/24 09:02 Apixaban 2.5 Mg Tablet PO 07/02/24 21:01 2.5 mg Q12HR OSCAR Administration Aspirin 81 mg 06/21/24 09:00 06/21/24 09:02 Aspirin 81 Mg Enteric Tablet PO 81 mg QAM OSCAR Administration Cefdinir 300 mg 06/21/24 09:00 06/21/24 09:02 Cefdinir 300 Mg Capsule PO 300 mg Q12HR OSCAR Administration Cyclobenzaprine HCl 10 mg 06/20/24 17:08 Cyclobenzaprine Hcl 10 Mg Tablet PO Q8H PRN Spasms Diltiazem HCl 180 mg 06/21/24 09:00 06/21/24 09:04 Diltiazem Hcl Cd 180 Mg Cap.24hr PO 180 mg DAILY OSCAR Administration Diphenhydramine HCl 25 mg 06/20/24 17:08 Diphenhydramine Hcl Inj 50 Mg/Ml Vial IV PUSH Q6H PRN Itching Famotidine 20 mg 06/20/24 21:00 06/21/24 09:02 Famotidine 20 Mg Tablet PO 20 mg Q12HR OSCAR Administration Hydrochlorothiazide 12.5 mg 06/21/24 09:00 06/21/24 09:05 Hydrochlorothiazide 12.5 Mg Capsule PO 12.5 mg DAILY OSCAR Administration Linaclotide 72 mcg 06/20/24 17:08 Linaclotide 72 Mcg Capsule PO PRN PRN Constipation Morphine Sulfate 2 mg 06/20/24 17:08 Morphine Sulfate (*Crx) 2 Mg/Ml Inj IV PUSH Q2H PRN Breakthrough Pain Rated 4-6 or NPO Naloxone HCl 0.1 mg 06/20/24 17:08 Naloxone Hcl 0.4 Mg/Ml Vial IV PUSH Q2M PRN Opiate Reversal Ondansetron HCl 4 mg 06/20/24 17:08 06/21/24 08:58 Ondansetron Inj 4 Mg/2 Ml Vial IV PUSH 4 mg Q4H PRN Administration Nausea And Vomiting Oxycodone HCl 5 mg 06/20/24 18:00 06/21/24 13:04 Oxycodone Hcl (*Crx) 5 Mg Tab Ir PO 5 mg Q4H OSCAR Administration Oxycodone HCl 5 mg 06/20/24 17:08 Oxycodone Hcl (*Crx) 5 Mg Tab Ir PO Q4H PRN Pain Rated 7-10 Polyethylene Glycol 17 gm 06/21/24 09:00 06/21/24 09:02 Polyethylene Glycol 3350 17 Gm Powd.Pack PO 17 gm QAM OSCAR Administration Potassium Chloride 10 meq 06/21/24 09:00 06/21/24 09:02 Potassium Chloride 10 Meq Er Tablet PO 07/21/24 08:59 10 meq DAILY OSCAR Administration Senna/Docusate Sodium 2 tab 06/20/24 17:08 06/21/24 09:02 Senna/Docusate Sodium Tablet PO 2 tab BID OSCAR Administration Radiology Results: ITS Impressions Knee X-Ray 06/20/24 15:30 IMPRESSION: 1. Right total knee arthroplasty, negative for postoperative purposes. Labs Labs: Laboratory Results - last 24 hr 06/21/24 05:42 WBC 9.3 RBC 2.96 L Hgb 8.8 L D Hct 26.9 L MCV 90.9 MCH 29.7 MCHC 32.7 RDW 13.9 Plt Count 166 MPV 9.9 Immature Gran % (Auto) 0.5 Neut % (Auto) 81.3 H Lymph % (Auto) 6.9 L [place] % (Auto) 11.3 H Eos % (Auto) 0.0 Baso % (Auto) 0.0 L Lymph # (Auto) 0.64 L [place] # (Auto) 1.1 H Eos # (Auto) 0.0 Baso # (Auto) 0.0 Abs Immat Gran (auto) 0.05 H Absolute Neuts (auto) 7.5 H Absolute Nucleated RBC 0.000 Nucleated RBC % 0.0 Sodium 129 L Potassium 3.6 Chloride 99 Carbon Dioxide 26 Anion Gap 4 BUN 13 Creatinine 0.90 Estim Creat Clear Calc 52 Estimated GFR > 60 Glucose 116 H Calcium 8.2 L
== END 2024-06-21 17:45 | disposition home or self-care (01) ==
LOC: ANHSURGERY 09:31 → ANH3MED 17:09
PROVIDERS: Physician Assistant Surgical; PCP Family Medicine; Visit Provider Orthopaedic Surgery
PROC: (CPT 27447; principal; 2024-06-20 11:30)
DX: M17.11 Unilateral primary osteoarthritis, right knee (principal); M25.761 Osteophyte, right knee; I10 Essential (primary) hypertension; K21.9 Gastro-esophageal reflux disease without esophagitis; G47.11 Idiopathic hypersomnia with long sleep time; E66.9 Obesity, unspecified; Z68.34 Body mass index [BMI] 34.0-34.9, adult; Z79.82 Long term (current) use of aspirin; Z98.890 Other specified postprocedural states; Z98.51 Tubal ligation status; Z96.652 Presence of left artificial knee joint; Z82.49 Family history of ischemic heart disease and other diseases of the circulatory system
CPT/HCPCS: 27447; 36415; 73560; 80048; 85025; 86850; 86900; 86901; 97110; 97116; 97161; 97165; 97530; A9270; C1713; C1776; J0171; J0690; J1100; J1171; J1885; J2003; J2270; J2405; J2704; J2795; J3010; J3370; J7030; J7120

== ENCOUNTER 2025-01-29 14:03 | Outpatient (CLI) | payer MEDICARE, SELFPAY ==
--- NOTE | ~2025-01-29 | XR_ITS ---
EXAMINATION: XR lg joint inject/asp w image, XR lg joint inject/asp add DATE: 01/29/2025 16:26 INDICATION: Right shoulder osteoarthritis TECHNIQUE: A time-out was performed to verify the patient's name, date of , and procedure to b e performed. The procedure including the risks, benefits, and alternatives was discussed with the pat ient. Risks discussed included bleeding and infection. The patient understood the risks and agreed to proceed. Attention was first turned to the right glenohumeral joint. The skin overlying the rotator cuff interval of the right glenohumeral joint was prepped and draped in usual sterile fashion. Anest hetic was administered with 1% lidocaine subcutaneously. A 22 G needle was advanced under fluoroscop ic guidance into the joint. Injection of 1 mL of Omnipaque 240 confirmed intra-articular position of the needle. Subsequently, injectate consisting of 5 mL a 4:1 mixture of 1 0.5% bupivacaine: 80 mg/m L Depo-Medrol was instilled. Washout of contrast was seen confirming intra-articular administration. The needle was removed and the entry site was cleaned and dressed. Attention was entered to the left glenohumeral joint. The skin overlying the rotator cuff interval of the left glenohumeral joint was prepped and draped in usual sterile fashion. Anesthetic was adminis tered with 1% lidocaine subcutaneously. A 22 G needle was advanced under fluoroscopic guidance into the joint. Injection of 1 mL of Omnipaque 240 confirmed intra-articular position of the needle. Sub sequently, injectate consisting of 5 mL a 4:1 mixture of 1 0.5% bupivacaine: 80 mg/mL Depo-Medrol was instilled. Washout of contrast was seen confirming intra-articular administration. The needle was re moved and the entry site was cleaned and dressed. There were no immediate complications. Fluoroscopy exposure time the combined procedures was 0.6 minutes. The total number of images was 5. FINDINGS: Real-time fluoroscopy demonstrates the needle and contrast initially in the right glenohume ral joint. Subsequent images demonstrate the needle and injected contrast in the left glenohumeral wilfredo int. Patient's pain prior to procedure:6/10. Patient's pain following the procedure: 5/10. IMPRESSION: 1. Successful right glenohumeral joint injection of local anesthetic and steroid with slight decrease in the patient's presenting pain. 2. Successful left glenohumeral joint injection of local anesthetic and steroid with slight decrease in the patient's presenting pain. Reviewed, dictated and finalized at location A. IMPRESSION: 1. Successful right glenohumeral joint injection of local anesthetic and steroi d with slight decrease in the patient's presenting pain. 2. Successful left glenohumeral joint injection of local anesthetic and steroid with slight decrease in the patient's presenting pain.
--- OUTSIDE RECORDS SUMMARY | 2025-01-29 14:18 | XMS_ITS | Clinical Summary ---
Author Organization [facility] Address [address] [place] [address] Care Team Providers Care Funeral Director And Embalmer Name Role Phone Anais Bach MD Primary Care Provider [phone] Source Comments [facility],non-owned Affiliates and Associated Physician Practices is amultiple site organization consisting of ambulatory clinics and hospital sitesin [place], [place], [place] and [place]. This disclosure is being madepursuant to the Care Everywhere program and may not contain all information available regarding this patient. Last updated 18.[facility] Allergies No known active allergies Medications * Be aware that medications may not be up to date on this document. Alwaysverify current medications with the patient. diltiazem SR 24hr (DILACOR XR) 180 MG capsule Take 180 mg by mouth once daily. Active aspirin 81 MG tablet Take 81 mg by mouth once daily. Active Active Problems Problem Noted Date Diagnosed Date Constipation 09/25/2013 Bloating 09/25/2013 Burping 09/25/2013 Family History Medical History Relation Name Comments Asthma Brother Asthma Father Cancer Father colon Diabetes Other half sister Relation Name Status Comments Brother Father Other Social History Tobacco Use Types Packs/Day Years Used Date Smoking Tobacco: Never Smokeless Tobacco: Never Alcohol Use Standard Drinks/Week Comments Yes 0 (1 standard drink = 0.6 oz pur e alcohol) ocassional Comments Unknown Sex and Gender Information Value Date Recorded Sex Assigned at Not on file Legal Sex Female 11:12 AM [facility] Gender Identity Not on file Sexual Orientation Not on file Last Filed Vital Signs Vital Sign Reading Time Taken Comments Blood Pressure 123/72 08/19/2015 11:04 AM [facility] Pulse 73 08/19/2015 11:04 AM [facility] Temperature 36.8 C (98.2 F) 08/19/2015 8:32 AM [facility] Respiratory Rate 15 08/19/2015 11:04 AM [facility] Oxygen Saturation 96% 08/19/2015 11:04 AM [facility] Inhaled Oxygen Concentration - - Weight 86.2 kg (190 lb) 08/19/2015 8:41 AM [facility] Height 165.1 cm (5' 5) 08/19/2015 8:41 AM [facility] Body Mass Index 31.62 08/19/2015 8:41 AM [facility] Plan of Treatment Health Maintenance Due Date Last Done Comments BONE DENSITY TESTING 1950 COLOGUARD (AGES 45-75) - COL ON CA SCREENING 1950 CT COLONOGRAPHY - COLON CA SCREENING 1950 FIT - COLON CA SCREENING 1950 FLEX SIG - COLON CA SCREENING 1950 LIPID TESTING 1950 MAMMOGRAM 1950 MEDICARE AWV 12 MONTHS 1950 HEPATITIS C SCREENING 03/28/1967 DTAP/TDAP/TD VACCINES (1 - Tdap) 1968 PNEUMOCOCCAL VACCINE 50+ (1 of 1 - PCV) 1999 ZOSTER VACCINE (1 of 2) 1999 Respiratory Syncytial Virus (RSV) Vaccine Pt: or over 60 yrs (1 - 1-dose 75+ series) 2024 COVID-19 VACCINE (1 - 2023-2 5 season) 2024 DEPRESSION SCREENING 08/28/2024 INFLUENZA VACCINE (Season Ended) 2025 COLON MONITORING 08/19/2025 08/19/2015, 08/19/2015 COLONOSCOPY - COLON CA SCREENING 08/19/2025 08/19/2015, 08/19/2015 Colorectal Cancer Screening 08/19/2025 HEPATITIS B VACCINE Aged Out No longe r eligible based on patient's age to complete this topic HIB VACCINE Aged Out No longer eligi ble based on patient's age to complete this topic HPV VACCINE Aged Out No longer eligi ble based on patient's age to complete this topic MENINGOCOCCAL (Group B) VACCINE SHARED DECISION-MAKING Aged Out No longer eligible based on patient's age to complete this topic MENINGOCOCCAL GROUPS A/C/Y/W VACCINE Aged Out No longer eligible b ased on patient's age to complete this topic Procedures Procedure Name Priority Date/Time Associated Diagnosis Comments ENDOSCOPY, COLON, SCREENING Routine 08/19/2015 9:35 AM [facility] from Last 3 Months or Most Recently Relevant to Health Maintenance Results * ENDOSCOPY, COLON, SCREENING (08/19/2015 9:35 AM [facility]ER) Report Endoscopy POC _ Patient Name: Tressa Sheridan Procedure Date: 08/19/2015 9:35 AM Date of : 1950 Admit Type: Outpatient Age: 65 Gender: Female Attending MD: Julián Agustin MD _ Procedure: Colonoscopy Indications: Screening for colorectal malignant neoplasm, Family history of colon cancer in a first-degree relative Providers: Julián Agustin MD (Doctor), Isabel Castro, SEGUNDO Referring MD: Anais Polk MD (Referring MD) Medicines: Monitored Anesthesia Care Complications: No immediate complications. _ Procedure: Pre-Anesthesia Assessment: - ASA Grade Assessment: II - A patient with mild systemic disease. - Airway Examination: Mallampati Class I (tonsillar pillars visualized). After I obtained informed consent, the scope was passed under direct vision. Throughout the procedure, the patient's blood pressure, pulse, and oxygen saturations were monitored continuously. The Colonoscope was introduced through the anus and advanced to the cecum, identified by appendiceal orifice and ileocecal valve. The colonoscopy was performed without difficulty. The patient tolerated the procedure well. The quality of the bowel preparation was adequate. Impression: - The entire examined colon is normal. - No specimens collected. Findings: The colon (entire examined portion) appeared normal. _ Recommendation: - Repeat colonoscopy in 5 years for screening purposes. - Repeat colonoscopy sooner in the event of new symptoms ie: bleeding, weight loss or change in bowel habits etc, or if a family member (mother, father, sister, brother) is diagnosed with polyps or colon cancer. Procedure Code(s): --- Professional --- 44942, Colonoscopy, flexible; diagnostic, including collection of specimen(s) by brushing or washing, when performed (separate procedure) --- Technical --- 99524, Colonoscopy, flexible; diagnostic, including collection of specimen(s) by brushing or washing, when performed (separate procedure) Diagnosis Code(s): --- Professional --- Z12.11, Encounter for screening for malignant neoplasm of colon Z80.0, Family history of malignant neoplasm of digestive organs --- Technical --- Z12.11, Encounter for screening for malignant neoplasm of colon Z80.0, Family history of malignant neoplasm of digestive organs CPT copyright 2014 [employer]. All rights reserved. The codes documented in this report are preliminary and upon class a lineman review may be revised to meet current compliance requirements. Julián Agustin MD 08/19/2015 10:27:29 AM This report has been signed electronically. Number of Addenda: 0 Note Initiated On: 08/19/2015 9:35 AM [facility] ENDOSCOPY 08/19/2015 9:35 AM [facility] us Julián Agustin MD GI PROCEDURE ORDERABLES Edited R esult - Final [facility] ENDOSCOPY from Last 3 Months or Most Recently Relevant to Health Maintenance Insurance [employer] Care Teams Funeral Director And Embalmer Relationship Specialty Start Date End Date Anais Bach MD [address] [place] [id number] PCP - General 08/08/22
--- OUTSIDE RECORDS SUMMARY | 2025-01-29 14:18 | XMS_ITS | Data Portability ---
Author Organization [place] [facility] [employer] Main Office Address [address] [place] [address] Care Team Providers Care Station Detective Name Role Phone SOY MARINELLI Primary Care Provider SOY MARINELLI Referring Provider Assessment Encounter Date Assessment Date Assessment LastModified by Organization Details LastModified Time 12/23/2022 12/23/2022 HPI: Patient returns. She is now approximately 3 months out from left total knee arthroplasty. The left knee is doing very. We had her come in today has been 3 months since surgery and also she had a cortisone injection in right knee at the time surgery. She has severe medial compartment osteoarthritis the right knee. Plan today was talk about whether not she wanted additional injection or if she wanted to talk about proceeding with surgery on the right. At this point she is not ready talk about surgery. She has several family events coming up over the summer and does not feel that she would be able do surgery and recovery in time to enjoy a these things. She does want have her right knee replaced at some point but given her social obligations and may not be until next year before this is going to work well for her. She can certainly continue with injections every 3 months to get her relief until time to do surgery. She remains on meloxicam 15 mg. The plan will be to have her come back in late January to have an injection in the right knee. She does remember that it is a minimum of 3 months from an injection total time surgery. She is going to remain on the meloxicam. We will also set her up 1 year anniversary appointment for her left knee with x-rays. Not available 12/23/2022 11:37:44 02/22/2023 02/22/2023 HPI: Patient returns. She is here for cortisone injection right knee. Last time we saw her she wants to schedule this appointment because she has family reunion coming up in the next week and a. She has severe medial compartment osteoarthritis the right knee. Left total knee arthroplasty that we did earlier this year is doing well for her. She is wanting to put off knee replacement on right at least until next year. She was to have an injection today. Physical exam: 72-year-old female alert pleasant she has a gfvo-oi-gefotxcl effusion right knee. She has mild varus alignment. Moderate tenderness over the medial line. Range of motion is from 5-125 degrees. No increased swelling in either lower extremity. ChloraPrep was used on skin 20 mg Kenalog and 3 cc of 0.5% ropivacaine was injected into the right knee. Risk of infection discussed. Impression: 72-year-old female who has severe medial compartment osteoarthritis the right knee. Again she is trying to put off knee replacement next year. I remind her knees to be minimum of 3 months from the time of injection to the time surgery. She would like to come back and no more than 3 months for an injection again. She has a home coming that she is going to be going to and once sure that she has good improvement. We will set the appointment up for an see her at that time. Not available 02/22/2023 12:33:28 05/31/2023 05/31/2023 HPI: Patient returns. She is here for cortisone injection right knee. She has moderately severe medial compartment osteoarthritis. Last shot was 3 months ago. She is getting some good relief from the injection. Physical exam: 73-year-old female has a uxxz-ke-ccwswnvj effusion in the right knee. Moderate tenderness over the medial joint line palpation. Range of motion is from 5-130 degrees. There is no increased swelling in either lower extremity. After ChloraPrep was used on skin 20 mg Kenalog and 3 cc of 0.5% ropivacaine was injected into the right knee. Risk infection discussed. Impression: 73-year-old female who has moderately severe medial osteoarthritis in knee. Shots continue to work well for. We will see her back in 3 months. She was on meloxicam but has stopped taking it 1 month ago. She was needing blood work done because of being on the chronic NSAID and did not get the blood work. I talked to her about this and we have given her a new script for the blood work so she can get this done so had injured her back on the meloxicam which she thinks is helping. Not available 05/31/2023 12:35:13 10/16/2023 10/16/2023 HPI: Patient returns. She is 1 year out from her left total knee arthroplasty. Left knee is doing well. Right knee is very problematic for her. It hurts on regular basis. She does take meloxicam 15 mg daily. She is wanting to have the knee replaced later this year. She has several trips planned and is working around this. She is here for a 1 year on her left knee. Physical exam: 73-year-old female alert pleasant. She walks well. She has well-healed incision over the left knee. Trace effusion. Range of motion is from 0-135 degrees. She has excellent stability in both flexion extension. Her right knee she has a iwhy-fq-zvaasrle effusion. Range of motion is from 12-110 degrees. Impression: Patient is 1 year out left total knee arthroplasty. She has excellent range of motion instability in the knee. Her right knee she has severe medial compartment osteoarthritis. She would like to have an injection in November before going on a trip. I remind her that has been a minimum of 3 months from a shot total time surgery and she will remember this. I will see her in November. [email or web address] Not available 10/16/2023 16:16:05 12/11/2023 12/11/2023 HPI: Patient returns. She is here for cortisone injection into the right knee last shot was 3 months ago. She continues to get about 6 weeks relief. She is strongly thinking about having the knee replaced once she is done with her cruise which she is going on about week. Physical exam: Patient has a mild effusion right knee. Range motion is from 5-130 degrees. She is moderate tenderness over the medial joint line palpation. No increased swelling in either lower extremities. After alcohol prep 20 mg Kenalog and 3 cc of 0.5% ropivacaine was injected into the right knee. Impression: 73-year-old female who has severe medial compartment osteoarthritis of the right knee. Shots continue to give her some benefit. See her in 3 months. Not available 12/11/2023 14:56:27 Plan of Treatment Reminders Order Date Submit Date Provider Last Modified By Organization Details Last Modified Time Details Appointments None recorded. Lab None recorded. Referral None recorded. Procedures injection/a spiration joint/bursa (PROC) - in office procedure, administere d by provider 2023 024 [email or web address] In-Office Order, Internal Use Only DO Not Attach Compendium DO Not Attach Compendium, Do Not Delete/merge, [id number] 14:01:29 injection/a spiration joint/bursa (PROC) - in office procedure, administere d by provider 2022 023 [email or web address] In-Office Order, Internal Use Only DO Not Attach Compendium DO Not Attach Compendium, Do Not Delete/merge, [id number] 3 12:02:37 injection/a spiration joint/bursa (PROC) - in office procedure, administere d by provider 2022 023 In-Office Order, Internal Use Only DO Not Attach Compendium DO Not Attach Compendium, Do Not Delete/merge, [id number] 3 11:19:54 Surgeries None recorded. Imaging XR, knee 2023 024 [email or web address] [facility], [address], [place], [address], 4 19:20:15 Medication Orders Kenalog 10 mg/mL suspension for injection 2023 024 [facility] [id number], [place], [address], 4 14:35:11 Marcaine 0.5 % (5 mg/mL) injection solution 2023 024 [facility] [address], [place], [address], 4 14:35:11 Mobic 15 mg tablet 2023 024 [facility] [address], [place], [address], 4 14:56:59 Kenalog 10 mg/mL suspension for injection 2022 023 [id number] [facility] [address], [place], [address], 4 09:41:16 ropivacaine (PF) 5 mg/mL (0.5 %) injection solution 2022 023 [id number] 840 [facility] [address], [place], [address], 4 09:41:17 Kenalog 10 mg/mL suspension for injection 2022 023 [id number] 840 [facility] [address], [place], [address], 4 09:41:17 ropivacaine (PF) 5 mg/mL (0.5 %) injection solution 2022 023 [id number] 840 [facility] [address], [place], [address], 4 09:41:17 Patient TargetsNo targets recorded. Patient InstructionsNo instructions recorded. Reason for Referral None Reported. Results Created Date Observation Date Name Description Value Unit Range Abnormal Flag Note LastModifiedBy Organization Detail LastModifiedTime 10/16/19 24 XR, knee No observ ation record ed. [email or web address] [facility] [address], [place], [address], 10/16/2023 16:14:43 Result Notes None recorded. Problems Name Problem SNOMED Code Status Onset Date Resolution Date Notes Provider Name and Address Organization Details Recorded Time Anterior knee pain 615248190 Active 2021 Not Available [facility] 4 09:41:16 Anterior knee pain 060335692 Active 2021 Not Available [facility] 4 09:41:16 Osteoarthr itis of left knee joint 7533955804601 09 Active 2021 Not Available [facility] 4 09:41:16 Osteoarthr itis of right knee joint 2406836547526 00 Active 2021 Not Available [facility] 4 09:41:16 Osteoarthr itis 998872680 Active Not Available [facility] 4 09:41:16 Pain of left knee joint 3511351952254 07 Active 2022 Not Available [facility] 4 09:41:16 Pain of bilateral knee joints 9158178389967 04 Active 2021 Not Available [facility] 4 09:41:16 Bowel problem 757317064 Active 2022 Not Available [facility] 4 09:41:16 Disorder of eye 046751648 Active 2022 Not Available [facility] 4 09:41:16 Headache 83637356 Active 2022 Not Available [facility] 4 09:41:16 Heartburn 74028330 Active 2022 Not Available [facility] 4 09:41:16 Hypertensi ve disorder 84961430 Active 2022 Not Available [facility] 4 09:41:16 Diabetes mellitus 67205678 Active 2022 Not Available [facility] 4 09:41:16 Pain of right knee joint 0136373760801 00 Active 2023 [facility] 4 15:40:13 Notes:BACK/NECK PROBLEMS, CO NCUSSION OR SPINAL TRAUMA Problem Notes None recorded. Procedures Surgical History Date Name Laterality Status Provider Name and Address Organization Details Recorded Time 09/14/19 23 [facility] 12:06:47 excision of bunion completed Not Available [facility] 10/26/2022 10:42:39 excision of bunion completed Caitie Haque [facility] 03/23/2023 12:06:06 Breast Biopsy completed Caitie [facility] 03/23/2023 12:06:23 Imaging Results None recorded. Procedure Notes None recorded. Medical Equipment None Reported. Allergies Allergen ID Allergen Name Allergen Category Reaction Reaction Severity Criticality Documentation Date Start Date Code Code System Note Provider Name and Address Organization Details Recorded Time 11417 propoxyph ketty hydrochlo ride medicatio n nausea severe Not available 10/26/2022 45174 RxNorm Not Available [facility] 10:50:10 Medications Name Sig Start Date Stop Date Status Note LastModified by Organization Details LastModified Time cyclobenzap rine 10 mg tablet TAKE 1 TABLET BY MOUTH THREE TIMES A DAY NEEDED FOR MUSCLE SPASMS active Not Available Not Available No t Available azithromyci n 250 mg tablet TAKE 2 TABLETS BY MOUTH TODAY, THEN TAKE 1 TABLET DAILY FOR 4 DAYS DIRECTED active Not Available Not Available No t Available diltiazem CD 180 mg capsule,ext ended release 24 hr TAKE 1 CAPSULE BY MOUTH EVERY DAY active Not Available Not Available No t Available hydrocodone 5 mg-acetamin ophen 325 mg tablet TAKE 1 TABLET BY MOUTH EVERY 6 HOURS NEEDED FOR PAIN 06/03 completed Not Available Not Available Not Available meloxicam 15 mg tablet TAKE 1 TABLET BY MOUTH EVERY DAY active Not Available Not Available No t Available prednisone 20 mg tablet 06/28 completed Not Available Not Available Not Available penicillin V potassium 500 mg tablet 12/23 completed Not Available Not Available Not Available omeprazole 40 mg capsule,del ayed release TAKE 1 CAPSULE BY MOUTH EVERY DAY 03/16 completed Not Available Not Available Not Available aspirin 81 mg tablet,sonia yed release Take 1 tablet every day by oral route. 2018 active Not Available Not Available Not Avai lable triamcinolo ne acetonide 0.1 % topical cream APPLY TO AFFECTED AREA TWICE A DAY active Not Available Not Available No t Available ciclopirox 8 % topical solution APPLY 1 APPLICATI ON EXTERNALL Y TO TOENAILS ONCE A DAY active Not Available Not Available No t Available meloxicam 7.5 mg tablet TAKE 1 TABLET BY MOUTH TWICE A DAY WITH FOOD 11/25 completed Not Available Not Available Not Available Marcaine 0.5 % (5 mg/mL) injection solution in office 2023 active Not Available Not Available Not Avai lable famotidine 20 mg tablet TAKE 1 TABLET BY MOUTH EVERY DAY 03/16 completed Not Available Not Available Not Available Kenalog 10 mg/mL suspension for injection in office 2023 active [facility]: [phone] Not Available Not Available Not Available cephalexin 500 mg capsule TAKE 1 CAPSULE BY MOUTH EVERY 6 HOURS 10/28 completed Not Available Not Available Not Available pantoprazol e 40 mg tablet,sonia yed release TAKE 1 TABLET BY MOUTH TWICE A DAY active Not Available Not Available No t Available ranitidine 150 mg tablet 09/25 completed Not Available Not Available Not Available polymyxin B sulfate 10,000 unit-trimet hoprim 1 mg/mL eye drops 06/28 completed Not Available Not Available Not Available omeprazole 20 mg capsule,del ayed release TAKE 1 CAPSULE BY MOUTH TWICE A DAY 03/16 completed Not Available Not Available Not Available estradiol 0.01% (0.1 mg/gram) vaginal cream 06/17 completed Not Available Not Available Not Available methylpredn isolone 4 mg tablets in a dose pack TAKE 6 TABLETS ON DAY 1 DIRECTED ON PACKAGE AND DECREASE BY 1 TAB EACH DAY FOR A TOTAL OF 6 DAYS 09/30 completed Not Available Not Available Not Available celecoxib 100 mg capsule TAKE 1 CAPSULE BY MOUTH EVERY DAY 03/16 completed Not Available Not Available Not Available ondansetron 4 mg disintegrat ing tablet 06/17 completed Not Available Not Available Not Available fluticasone propionate 50 mcg/actuati on nasal spray,suspe nsion SPRAY 2 SPRAYS INTO EACH NOSTRIL EVERY DAY active Not Available Not Available No t Available naproxen 500 mg tablet TAKE 1 TABLET BY MOUTH TWICE A DAY WITH MEALS. REPLACING MELOXICAM . 09/30 completed Not Available Not Available Not Available amoxicillin 875 mg-potassiu m clavulanate 125 mg tablet 06/28 completed Not Available Not Available Not Available oxycodone 5 mg tablet take 1 tablet PO q 6hr PRN pain 03/23 completed Not Available Not Available Not Available moxifloxaci n 0.5 % eye drops ADMINISTE R 1 DROP INTO BOTH EYES 3 TIMES A DAY. active Not Available Not Available No t Available Denture [place] 06/28 completed Not Available Not Available Not Available Stool Softener TID DAILY active Not Available Not Available N ot Available Vitamin D3 06/03 completed Not Available Not Available Not Available Medicated Foot Powder 06/28 completed Not Available Not Available Not Available lidocaine (PF) 10 mg/mL (1 %) injection solution In office injection administe red by the provider 03/16 completed [facility]: [phone] Not Available Not Available Not Available hydrochloro thiazide 12.5 mg tablet TAKE 1 TABLET BY MOUTH EVERY DAY active Not Available Not Available No t Available GaviLyte-N 420 gram oral solution 06/28 completed Not Available Not Available Not Available Senexon-S 8.6 mg-50 mg tablet TAKE 2 TABLETS BY MOUTH TWICE A DAY 10/12 completed Not Available Not Available Not Available ropivacaine (PF) 5 mg/mL (0.5 %) injection solution in office 2022 active [facility] [phone] Not Available Not Available Not Available Eliquis 2.5 mg tablet TAKE 1 TABLET BY MOUTH EVERY 12 HOURS 10/12 completed Not Available Not Available Not Available Vitamin B12 06/03 completed Not Available Not Available Not Available Fluzone High-Dose 2031-3868 (PF) 180 mcg/0.5 mL intramuscul ar syringe 06/17 completed Not Available Not Available Not Available Fluzone High-Dose (PF) 180 mcg/0.5 mL intramuscul ar syringe 06/17 completed Not Available Not Available Not Available Fluzone High-Dose Quad (PF) 240 mcg/0.7 mL IM syringe [facility] active Not Available Not Available No t Available Flowflex COVID-19 Antigen Home Test kit REFER TO MANUFACTU RER INSTRUCTI ONS INCLUDED IN PACKAGING active Not Available Not Available No t Available Vitals Date Recorded Body height Provider Name an d Address Organization Details Last Updated DateTime 10/16/2023 162.56 cm SRINIVASAN LordA [place] [facility] [place] [facility] 10/16/2023 15:37:55 Date Recorded Body height Provider Name an d Address Organization Details Last Updated DateTime 12/11/2023 162.56 cm Corina Garay [facility] 12/11/2023 13:59:45 Date Recorded Body height Provider Name an d Address Organization Details Last Updated DateTime 12/23/2022 157.48 cm Ignacia Noriega [facility] 12/23/2022 11:05:51 Date Recorded Body height Provider Name an d Address Organization Details Last Updated DateTime 02/22/2023 157.48 cm Ignacia Noriega [facility] 02/22/2023 11:18:26 Date Recorded Body height Body mass index (BMI) Body weight Provider Name and Address Organization Details Last Updated DateTime 05/31/2023 162.56 cm 32.1 kg/m2 53129.77 g Ignacia Noriega [facility] 05/31/2023 12:04:50 Social History None recorded. Functional Status Question Answer Note LastModified by Organizat ion Details LastModified Time What is your level of alcohol consumption? Occasional [id number] Information not available 10/26/2022 Mental Status None recorded. Family History Relationship Description Onset Age of this Age Resolved Age Notes LastModified by Organization Details LastModified Time Maternal Grandmother Cerebrovascu lar accident Not available 15:33:24 Father Family history of malignant neoplasm [id number] Not available 10/16 15:33:24 Father Hypertensive disorder [email or web address] Not available 2022 12:04:27 Mother Family history of malignant neoplasm [email or web address] Not available 10/16 15:33:24 Mother Arthritis Not availa ble 10/16/2023 15:33:24 Mother Hypertensive disorder [id number] Not available 10/26/2022 10:42:42 Brother Blood coagulation disorder [id number] Not available 10/16 15:33:24 Brother Blood coagulation disorder [email or web address] Not available 10/16 15:33:24 Brother Kidney disease [id number] Not available 10/26/2022 10:42:42 Brother Kidney disease [id number] Not available 10/26/2022 20:07:14 Unspecified Relation Diabetes mellitus SIBJOSE M GS [email or web address] Not available 03/23/2023 12:04:06 Sister Heart disease [email or web address] Not available 2022 12:04:49 Notes:SISTER HAD CONGESTIVE HEART FAILURE AND HAD A DEFIBULATOR Medical History Condition Response ARTHRITIS Y HEARTBURN / REFLUX Y USE OF NSAIDS Y CONCUSSION OR SPINAL TRAUMA Y BOWEL PROBLEMS Y BACK / NECK PROBLEMS Y HEADACHES/MIGRAINES Y HYPERTENSION Y Gynecological HistoryNo gynecological history recorded. Obstetrics History GPAL:G 0 P 0 0 0 0 Past Encounters Encounter ID Performer Location Encounter Start Date Encounter Closed Date Diagnosis/Indication Diagnosis SNOMED-CT Code Diagnosis ICD10 Code Diagnosis Note [id number] Domingo Gonzalez MD [facility] [address] [place] [address] 03/16/2022 00:00:00 03/16/2022 16:35:43 [id number] Fabrice Rodgers MD [facility] [address] [facility] [address] [place] [address] 04/21/2022 00:00:00 04/21/2022 12:22:39 [id number] Domingo Gonzalez MD [facility] [address] [facility] [address] [place] [address] 06/03/2022 00:00:00 06/05/2022 14:00:28 [id number] Domingo Gonzalez MD [facility] [address] [place] [address] 09/30/2022 00:00:00 09/30/2022 11:05:04 [id number] Domingo Gonzalez MD [facility] [address] [place] [address] 10/12/2022 00:00:00 10/12/2022 11:30:57 [id number] Domingo Gonzalez MD [facility] [address] [place] [address] 10/28/2022 10:20:48 11/17/2022 16:51:42 History of right total knee replacement 5125859558 609353 Z96.651 [id number] Domingo Gonzalez MD [facility] [address] [place] [address] 11/25/2022 10:51:38 11/25/2022 11:34:44 History of left total knee replacement 0004401238 521394 Z96.652 [id number] Domingo Gonzalez MD [facility] [address] [place] [address] 12/23/2022 10:56:13 12/23/2022 12:02:45 History of left total knee replacement 2937320464 663573 Z96.652 [id number] Domingo Gonzalez MD [facility] [address] [place] [address] 02/22/2023 11:15:36 02/22/2023 13:04:06 Osteoarthritis of right knee joint 8333705349 99302 M17.11 [id number] Domingo Gonzalez MD [facility] [address] [place] [address] 05/31/2023 11:27:38 05/31/2023 12:40:52 Osteoarthritis of right knee joint 1376779270 28290 M17.11 [id number] Domingo Gonzalez MD [facility] [address] [place] [address] 10/16/2023 15:28:03 10/16/2023 16:24:06 History of left total knee replacement 9009208736 600227 Z96.652 Pain of ri ght knee joint 9836222311 28942 M25.158 [id number] Atilio Salinas MD [facility] [address] [place] [address] 12/11/2023 13:56:41 12/11/2023 16:27:38 Pain of right knee joint 0679626305 34220 M25.561 Osteoarthr itis of right knee joint 9686461496 81901 M17.11 Health Concerns Section Related Observation LastModified by Organization Detai ls LastModified Time None Recorded Concern Status LastModified by Organization Details LastModified Time None Recorded Advance Directives Directive None Recorded Payers Encounter Date Sequence Insurance Name Policy Number Policy Yepez Covered Member ID Yepez Member ID Guarantor Name 12/23/2022 1 [employer] (MEDICARE REPLACEMENT HMO) [id number] Tressa Sheridan [id number] Tressa Sheridan 02/22/2023 1 [employer] (MEDICARE REPLACEMENT HMO) [id number] Tressa Sheridan [id number] Tressa Sheridan 05/31/2023 1 [employer] (MEDICARE REPLACEMENT HMO) [id number] Tressa Sheridan [id number] Tressa Sheridan 10/16/2023 1 [employer] (MEDICARE REPLACEMENT/AD VANTAGE - HMO) [id number] Tressa Sheridan [id number] Tressa Sheridan 12/11/2023 1 [employer] (MEDICARE REPLACEMENT/AD VANTAGE - HMO) [id number] Tressa Sheridan [id number] Tressa Sheridan OBGyn Episode No OBEpisode recorded.
--- OUTSIDE RECORDS SUMMARY | 2025-01-29 14:18 | XMS_ITS | Patient Health Record ---
Author Organization [facility] Address [address] [place], [place] [id number] Care Team Providers Care Therapeutic Activities Services Worker Name Role Phone Anais Arnold Primary Care Provider CRISTINA Xiong Unavailable [phone] Allergies No Known Allergies Reason For Referral No Information Medications Medication SIG (Take, Route, Frequency, Duration) Notes Start Date End Date Status Clotrimazole 1 % 1 application Externally once a day for 30 days Active Ciclopirox 8 % 1 application Externally to toenails Once a day. for 30 days Remove medication once a week with rubbing alcohol. one bottle, 6.6mL or similar. 09/09/2024 03/08/2025 Active Encounters Encounter Location Date Provider Diagnosis [facility] [place] [id number] [facility] [address] [place], [place] [id number] 09/09/2024 CRISTINA BRADY Plan Of Treatment No Information Insurance Providers Payer Name Payer Address Payer Phone Subscriber Number Group Number Insured Name Patient Relationship to Insured Coverage Start Date Coverage End Date [employer]. [address] [place] [address] [id number] BRANDEN CORBIN Self - patient is the insured Medical (General) History Medical History History ICD Code acid reflux Leg/Feet cramps Arthritis varicose veins hypertension restless leg syndrome Surgical History Surgery Date(Month/Year) bunionectomy-Bilateral 1981 bunionectomy-left foot 2020
--- OUTSIDE RECORDS SUMMARY | 2025-01-29 14:18 | XMS_ITS | Clinical Summary ---
Author Organization [facility] Care Team Providers Care Record Label Internship Name Role Phone Unavailable Primary Care Provider Unavailabl e Social History Tobacco Use Types Packs/Day Years Used Date Smoking Tobacco: Never Assessed Comments Unknown Sex and Gender Information Value Date Recorded Sex Assigned at Not on file Legal Sex Female 11:49 PM CDT Gender Identity Not on file Sexual Orientation Not on file Plan of Treatment Health Maintenance Due Date Last Done Comments DEXA Bone Density 1949 Hepatitis C Virus (HCV) Screening 1949 TdaP Immunization 1949 Colonoscopy 1994 Colorectal Cancer Screening 1994 Cologuard 1999 Immunochemical Fecal Occult Blood 1999 Mammogram 1999 Pneumococcal Immunization (5 0+ years) (1 of 1 - PCV) 1999 Zoster Immunization (1 of 2) 1999 Respiratory Syncytial Virus (RSV) Immunization (Adult) (1 - 1-dose 75+ series) 2024 Influenza Immunization (#1) 04/28/202404/28, 06/28/2019 SARS-COV-2 Immunization ( season) 2024 07/10/2021, 11/18/2020, 10/27/2020 Hepatitis B Immunization Aged Out No longer eligible based on patient's age to complete this topic Meningococcal Immunization (ACWY) Aged Out No longer eligible b ased on patient's age to complete this topic Rotavirus Immunization Aged Out No lo nger eligible based on patient's age to complete this topic
--- OUTSIDE RECORDS SUMMARY | 2025-01-29 14:18 | XMS_ITS | Referral Summary ---
Author Organization [facility] Address [address] [place] [address] Care Team Providers Care Wind Tunnel Engineer Name Role Phone Anais Bach MD Primary Care Provider [phone] Encounters Date Type Department Care Team Description 11/21/2024 1:00 PM CDT Office Visit [facility] Family Medicine [address] [place] [address] [address] [place] [address] Lulu Walsh NP Chronic right shoulder pain (Primary Dx); Chronic left shoulder pain from Last 3 Months Allergies No known active allergies Medications aspirin 81 mg chewable tablet Take 1 tablet (81 mg total) by mouth daily Active pantoprazole DR (PROTONIX) 40 mg EC tablet Take 1 tablet (40 mg total) by mouth daily Active cyclobenzaprine (FLEXERIL) 10 mg tabletIndicatio ns:Neck pain,Acute pain of right shoulder,Cervic al radicular pain Take 1 tablet (10 mg total) by mouth 3 (three) times a day as needed for muscle spasms 30 tablet 2 06/08/2022 Active meloxicam (MOBIC) 15 mg tablet Take 1 tablet (15 mg total) by mouth daily 08/02/2023 Active fluticasone propionate (FLONASE) 50 mcg/actuation nasal spray SPRAY 2 SPRAYS INTO EACH NOSTRIL EVERY DAY 16 mL 06/01/2024 Active linaCLOtide (LINZESS) 145 mcg capsule 72 mg Active montelukast (SINGULAIR) 10 mg tabletIndicatio ns:Acute cough Take 1 tablet (10 mg total) by mouth nightly 90 tablet 12/11/2024 Active hydroCHLOROthia zide 12.5 mg tabletIndicatio ns:Hypertension , essential Take 1 tablet (12.5 mg total) by mouth daily 90 tablet 12/11/2024 Active dilTIAZem XR (dilTIAZem CD) 180 mg 24 hr capsuleIndicati ons:Hypertensio n, essential Take 1 capsule (180 mg total) by mouth daily 90 capsule 12/11/2024 Active Active Problems Problem Noted Date Diagnosed Date Encounter for Medicare annual wellness exam 07/28 Assessment & Plan (08/26/2024 3:38 AM MAGAZINE WORKER): Patient here for annual Medicare wellness visit and for review of complete medical problem list. All the elements of the plan were completed as outlined by [facility]. A copy of the prevention plan was given to the patient. I reviewed Medicare Wellness Questionnaire (other physicians involved in care, depression screen, advanced directives), cognitive/memory, and functional assessment. I reviewed and updated the complete problem list, medication list, family history, and immunization records with the patient. I provided preventive counseling and early detection interventions to the patient through health maintenance update and summary of today's office visit. 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 Sometimes this can be due to chronic sinusitis or fungal infection. Usually that tends to be persistent. We also talked about the possibility of brain tumors that can cause this. I reassured her that I did not feel that that was the issue because that also would tend to be a constant sensation. I discussed getting an MRI scan and we decided to wait and see how things go. If her symptoms continue to recur or are persistent asked her to call to set that up. Otherwise I really did not feel strongly that she needed an MRI scan. She understands. She has no questions. Nasal congestion 07/24/2024 Assessment & Plan (07/24/2024 6:23 PM MAGAZINE WORKER): This is pretty minimal. Probably Not contributing to her symptoms. Endoscopically no abnormal findings. 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 Jaramillo in July. Acute cough 02/13/2024 Assessment & Plan (02/19/2024 6:10 AM CDT): New Order [place]ana ovalleir Acute bacterial conjunctivitis of both eyes 11/2023 Assessment & Plan (11/10/2023 4:00 PM CDT): New Order vigamox Chronic right shoulder pain 05/03/2023 Neck pain 05/03/2023 Primary osteoarthritis of right shoulder Assessment & Plan (05/12/2023 6:54 AM CDT): Persistent pain Order MRI shoulder Refer to pain management Assessment & Plan (08/04/2022 10:14 AM MAGAZINE WORKER): Uncontrolled Not better after 6 weeks of PT Refer to ortho DDD (degenerative disc disease), cervical 2021 Assessment & Plan (08/04/2022 10:14 AM MAGAZINE WORKER): Uncontrolled Not better after 6 weeks of PT Refer to ortho Bilateral primary osteoarthritis of knee 022 Cervical radicular pain 06/08/2022 Assessment & Plan (06/14/2022 6:19 AM CDT): New Order xrays Order medrol, flexeril Order PT Primary osteoarthritis of left knee 04/14/2022 Assessment & Plan (04/20/2022 2:59 AM CDT): Worsened Order mobic, medrol pack Lumbar degenerative disc disease 04/03/2021 Assessment & Plan (03/21/2022 11:20 AM CDT): Chronic Cont flexeril prn Assessment & Plan (08/05/2021 10:42 AM MAGAZINE WORKER): Patient says she does have lumbar degenerative disc disease and needs to see a spine surgeon. Assessment & Plan (04/07/2021 4:36 PM CDT): Chronic Refer to neurosurgeon Bilateral lower extremity pain 03/29/2021 Assessment & Plan (08/05/2021 10:43 AM MAGAZINE WORKER): Patient has bilateral lower extremity pain but does not have any significant dilation or reflux of the greater or small saphenous veins and no varicosities. She does have spider veins throughout her legs but I explained to her that that would be cosmetic to inject those. Also the deep achy feeling that she is having in her legs is highly unlikely due to any venous process unless she has a DVT. She does not have DVT seen on her duplex. She can continue to wear her compression stockings and follow up as needed but no surgical intervention is necessary from my standpoint. Assessment & Plan (03/29/2021 1:48 PM CDT): Impression: Patient complains of bilateral lower extremity discomfort for the past 5 years. She reports mild edema and discomfort when she has been on her legs for prolonged periods of time. She denies any symptoms of claudication or ischemic rest pain. She does have a history of back and bilateral knee pain. She has not been utilizing compression stockings. Plan: Recommend wearing medical grade compression stockings 20 30 mmHg. Patient to follow-up in 3 months with a bilateral lower extremity reflux study. Symptomatic spider varicose vein 01/28/2021 Assessment & Plan (08/05/2021 10:46 AM MAGAZINE WORKER): Patient does have spider veins on her legs and it was discussed with her that they would need to be injected and it is a cosmetic procedure. Assessment & Plan (02/04/2021 4:58 AM CDT): New Refer to vascular Carotid artery disease 06/29/2020 Hip pain, bilateral 06/29/2020 Assessment & Plan (10/13/2020 6:42 AM MAGAZINE WORKER): new Order xrays Order medrol pack, mobic Assessment & Plan (07/22/2020 9:51 AM MAGAZINE WORKER): Uncontrolled Refer to ortho Patient to get the xrays done, and then will order MRI Chronic bilateral low back pain with bilateral s ciatica 01/23/2020 Assessment & Plan (03/21/2022 11:20 AM CDT): Chronic Cont flexeril prn Assessment & Plan (08/12/2021 6:15 AM MAGAZINE WORKER): Chronic Cont flexeril prn Assessment & Plan (02/04/2021 4:58 AM CDT): Worsening pain Order MRI lumbar spine Assessment & Plan (03/09/2020 2:09 AM CDT): New Order lumbar xray Pure hypercholesterolemia 01/23/2020 Assessment & Plan (02/19/2024 6:10 AM CDT): Chronic Stable Follow low chol diet Goal: TC<200, LDL<100, TG<150 Assessment & Plan (01/12/2023 4:46 AM CDT): Chronic Stable Diet control Goal: TC<200, LDL<100, TG<150 Assessment & Plan (03/21/2022 11:19 AM CDT): Stable Follow low cholesterol diet Goal: TC<200, LDL<100, TG<150 Assessment & Plan (08/12/2021 6:14 AM MAGAZINE WORKER): Stable Follow low cholesterol diet Goal: TC<200, LDL<100, TG<150 Assessment & Plan (08/05/2021 10:46 AM MAGAZINE WORKER): Followed by her PCP and currently controlled with diet. Assessment & Plan (02/04/2021 4:58 AM CDT): Stable Follow low cholesterol diet Assessment & Plan (10/13/2020 6:43 AM MAGAZINE WORKER): Stable Follow low cholesterol diet Assessment & Plan (03/26/2020 5:13 AM CDT): Stable Follow low cholesterol diet Assessment & Plan (03/09/2020 2:10 AM CDT): Stable Follow low cholesterol diet Leg cramps 09/25/2019 Assessment & Plan (09/25/2019 12:24 PM MAGAZINE WORKER): Stable Cont Flexeril Hypertension, essential 09/25/2019 Assessment & Plan (02/19/2024 6:09 AM CDT): Chronic Stable Cont diltiazem, hctz Goal: SBP<140, DBP<90 Assessment & Plan (01/12/2023 4:46 AM CDT): Chronic Stable Cont diltiazem, hctz Goal: SBP<140, DBP<90 Assessment & Plan (04/20/2022 2:58 AM CDT): Stable Cont hctz Goal: SBP<140, DBP<90 Assessment & Plan (03/21/2022 11:19 AM CDT): Stable Cont hctz Goal: SBP<140, DBP<90 Assessment & Plan (08/12/2021 6:14 AM MAGAZINE WORKER): Stable Cont hctz Goal: SBP<140, DBP<90 Assessment & Plan (08/05/2021 10:46 AM MAGAZINE WORKER): Followed by her PCP and controlled on her current medications. Assessment & Plan (02/04/2021 4:58 AM CDT): Stable Cont hctz, diltiazem Assessment & Plan (10/13/2020 6:42 AM MAGAZINE WORKER): Stable Cont hctz, diltiazem Assessment & Plan (07/22/2020 9:51 AM MAGAZINE WORKER): Stable Cont hctz, diltiazem Assessment & Plan (03/26/2020 5:13 AM CDT): Stable Cont hctz, diltiazem Assessment & Plan (03/09/2020 2:09 AM CDT): Stable Cont ditiazem, hctz Assessment & Plan (01/17/2020 9:09 AM CDT): BP improving since adding HCTZ to the Diltiazem. However, this morning was too low and she got dizzy. Advised patient to increase water intake and monitor BP twice daily for next week and will then follow up again Assessment & Plan (01/08/2020 4:54 PM CDT): Not well controlled. Will add low dose HCTZ since she does have some ankle swelling. TO get labs done, reordered today. Assessment & Plan (09/25/2019 12:21 PM MAGAZINE WORKER): Stable Cont Diltiazem Postmenopausal 09/25/2019 Gastroesophageal reflux disease 09/25/2019 Assessment & Plan (09/25/2019 12:25 PM MAGAZINE WORKER): Uncontrolled Cont Pepcid Start Omeprazole Spinal stenosis of lumbar region 02/06/2017 Assessment & Plan (04/07/2021 4:36 PM CDT): Chronic Refer to neurosurgeon Assessment & Plan (03/09/2020 2:09 AM CDT): Order lumbar xray Constipation 09/25/2013 Assessment & Plan (03/21/2022 11:20 AM CDT): Chronic Use linzess PRN Resolved Problems Problem Noted Date Diagnosed Date Resolved Date Preoperative examination 07/15/2022 Acute pain of right shoulder 06/08/2022 04/18/2023 Assessment & Plan (08/04/2022 10:14 AM MAGAZINE WORKER): Uncontrolled Not better after 6 weeks of PT Refer to ortho Assessment & Plan (06/14/2022 6:19 AM CDT): New Order xrays Order medrol, flexeril Order PT Neck pain 06/08/2022 04/18/2023 Assessment & Plan (08/04/2022 10:14 AM MAGAZINE WORKER): Uncontrolled Not better after 6 weeks of PT Refer to ortho Assessment & Plan (06/14/2022 6:19 AM CDT): New Order xrays Order medrol, flexeril Order PT Acute pain of left knee 04/14/202203/29 Assessment & Plan (04/20/2022 2:59 AM CDT): Worsened Order mobic, medrol pack Encounter for preprocedural cardiovascular examination 08/04/2021 04/18/2023 Assessment & Plan (08/12/2021 6:15 AM MAGAZINE WORKER): Patient here for annual Medicare wellness visit and for review of complete medical problem list. All the elements of the plan were completed as outlined by CMS. A copy of the prevention plan was given to the patient. I reviewed Medicare Wellness Questionnaire (other physicians involved in care, depression screen, advanced directives), cognitive/memory, and functional assessment. I reviewed and updated the complete problem list, medication list, family history, and immunization records with the patient. I provided preventive counseling and early detection interventions to the patient through health maintenance update and summary of today's office visit. Acute pain of left shoulder 12/22/2020 04/18/2023 Neck pain, acute 12/22/2020 04/18/2023 Acute bilateral low back rebekah n with bilateral sciatica 06/29/2020 04/18/2023 Assessment & Plan (10/13/2020 6:42 AM MAGAZINE WORKER): new Order xrays Order medrol pack, mobic Encounter for screening mamm ogram for malignant neoplasm of breast 03/25/2020 04/18/2023 Foot pain, bilateral 01/23/2020 023 Assessment & Plan (03/09/2020 2:10 AM CDT): Uncontrolled Refer to podiatry Osteoarthritis 01/08/2020 04/18/2023 Chronic pain of both knees 09/25/2019 0 04/18/2023 Assessment & Plan (03/09/2020 2:09 AM CDT): Worsening Refer to ortho Assessment & Plan (01/17/2020 9:07 AM CDT): Is improving with adding HCTZ to the diltiazem. However, because BP dropped too low this AM, advised patient to increase water intake and monitor BP twice daily for next week and will do f/u again in a week Assessment & Plan (09/25/2019 12:19 PM MAGAZINE WORKER): Stable Cont Celebrex Adult general medical exam 09/25/2019 0 01/08/2020 Osteoarthritis of spine with radiculopathy, cervical region 02/06/2017 04/18/2023 Bloating 09/25/2013 04/18/2023 Burping 09/25/2013 04/18/2023 Immunizations Immunization Administration Dates Next Due COVID-19 mRNA (PiPsports) 0.3 m L (30 mcg) vaccine (12 years and up) 03/28/2024 Influenza, Quad, Adjuvantate d, Intramuscular 06/07/2023,05/17/2022,05/16/2022 Influenza, Quadrivalent, Hig h Dose, Preservative Free, Intrr 05/28/2021,05/13/2020 Influenza, Unspecified 03/28/2024,06/24/2021,08/2018 Pfizer SARS-CoV-2 Monovalent Vaccination (12+ Yrs) PURPLE 07/10/2021,11/18/2020,10/27/2020 Pneumococcal Conjugate Pcv20 02/14/2022 RSV Vaccine, Pref, Recombina nt, Subunit, Adjuvanted, PF, IM (Arexvy) 07/22/2023 ZOSTER Recombinant 05/10/2022,02/10/2022 Social History Tobacco Use Types Packs/Day Years Used Date Smoking Tobacco: Never Smokeless Tobacco: Never Tobacco Cessation:Counseling Given: Not Answered Alcohol Use Standard Drinks/Week Comments Yes 0 (1 standard drink = 0.6 oz pur e alcohol) occas AUDIT-C Answer Date Recorded Q1: How often do you have a drink containing alc ohol? Monthly or less 08/15/2024 Q2: How many drinks containi ng alcohol do you have on a typical day when you are drinking? 1 or 2 08/15/2024 Frequency of Binge Drinking Not on file 07/28 PHQ-2 Answer Date Recorded PHQ-2 Total Score (If total score is 3 or more points, staff should administer the PHQ-9) 0 08/15/2024 Comments No Sex and Gender Information Value Date Recorded Sex Assigned at Not on file Legal Sex Female 10:54 PM MAGAZINE WORKER Gender Identity Not on file Sexual Orientation Not on file Last Filed Vital Signs Vital Sign Reading Time Taken Comments Blood Pressure 134/76 11/21/2024 11:45 AM CDT Pulse 80 08/15/2024 11:23 AM MAGAZINE WORKER Temperature 36.8 C (98.2 F) 11/21/2024 11:45 AM CDT Respiratory Rate 18 08/15/2024 11:23 AM MAGAZINE WORKER Oxygen Saturation 98% 08/15/2024 11:23 AM MAGAZINE WORKER Inhaled Oxygen Concentration - - Weight 87.4 kg (192 lb 9.6 oz) 08/15/2024 11:23 AM MAGAZINE WORKER Height 162.6 cm (5' 4.02) 11/21/2024 11:45 AM C DT Body Mass Index 33.06 08/15/2024 11:23 AM MAGAZINE WORKER Plan of Treatment Not on file Procedures Procedure Name Priority Date/Time Associated Diagnosis Comments SCREENING MAMMOGRAM BILATERAL W ARTIE Schedule Routine, Read Routine (OP Routine) 03/28/2024 3:12 PM CDT Screening mammogram, encounter for HM COLONOSCOPY Routine 01/17/2024 11:45 AM CDT DEXA AXIAL SKELETON BONE DENSITY 1 OR MORE SITES Schedule Routine, Read Routine (OP Routine) 10/07/2022 2:09 PM MAGAZINE WORKER Postmenopausal from Last 3 Months or Most Recently Relevant to Health Maintenance Results * Screening Mammogram Bilateral W Artie (03/28/2024 3:12 PM CDT) Anatomical Region Laterality Modality Breast Bilateral Mammography Impressions 03/28/2024 3:19 PM CDT BI-RADS ATLAS category (overall): 1 - Negative There is no mammographic evidence of malignancy. A 1 year screening mammogram is recommended. The patient has been or will be contacted. We recommend annual screening mammography for women at average risk of breast cancer beginning at age 40, based on guidelines of the [employer] (ACR Practice Parameter for the Performance of Screening and Diagnostic Mammography) and [employer]. For women with and elevated risk of breast cancer, please refer to the ACR Practice Parameter for specific screening recommendations. The patient will be entered into a reminder system with a target due date of 1 year for her next screening exam. Narrative 03/28/2024 3:19 PM CDT Screening Mammogram Bilateral W Artie: 03/28/24 The study was acquired using full field digital technology and interpreted from soft copy. 2D digital mammographic views, as well as 3D digital tomosynthesis were performed in the CC and MLO projections. CLINICAL: Screening mammogram, encounter for No relevant medical history has been documented for this patient. History of breast cancer in Neg Hx. COMPARISONS: 03/20/2023 SCREENING MAMMOGRAM BILATERAL W ARTIE 10/14/2021 Screening Mammogram Bilateral W Artie 07/29/2020 Screening Mammogram Bilateral W Artie 10/16/2017 SCREENING MAMMOGRAM BILATERAL W ARTIE 08/01/2016 Breast Imaging Screening Outside Reference BREAST TISSUE: The breasts are extremely dense, which lowers the sensitivity of mammography. FINDINGS: There is no new suspicious finding in either breast on mammogram. us Self Screening Mammogram IMG MAMMO PROCEDURES Fi nal Result * HM COLONOSCOPY (01/17/2024 11:45 AM CDT) [facility] Provider HEALTH MAINTENANCE Final Result * Dexa Axial Skeleton Bone Density 1 Or 2 Site (10/07/2022 2:09 PM MAGAZINE WORKER) Anatomical Region Laterality Modality Body N/A Mammography 10/08/2022 6:00 AM MAGAZINE WORKER Narrative 10/08/2022 6:00 AM MAGAZINE WORKER EXAM DESCRIPTION: DEXA AXIAL SKELETON BONE DENSITY 1 OR MORE SITES REASON FOR STUDY: 72 y/o year old F with given history of screening. 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 FINDINGS: AP LUMBAR SPINE L1-L4: Total BMD is 1.260 g/cm2 T-score is 1.0 LEFT HIP: Total BMD is 0.971 g/cm2 T-score is -0.4 Femoral neck BMD is 0.812 g/cm2 T-score is -1.0 FRAX: FRAX not reported due to T-scores of hip, femoral neck and/or spine being at or above -1.0 (Normal). IMPRESSION: Normal REFERENCE: Bone mineral density: Normal (T-score above or = -1.0) Low bone mass (T-score between -1.0 and -2.5) replaces the previously used term osteopenia Osteoporosis (T-score = or below -2.5) Medical evaluation for secondary causes of low bone mineral density may be appropriate. FRAX is a World Health Organization validated fracture risk assessment tool that calculates a person's 10 year probability of a major osteoporosis related fracture and hip fracture. According to the National Osteoporosis Foundation guidelines, postmenopausal women and men age 50 or older with low bone mass and a 10 year probability of a major osteoporosis related fracture = or greater than 20% or a 10 year probability of a hip fracture = or greater than 3% should be considered for treatment. For further information, including treatment recommendations, please refer to the 2013 ISCD Official Positions (http://www.iscd.org) and the NOF's Clinician's Guide to Prevention and Treatment of Osteoporosis (http://www.nof.org/professionals/clinical-guidelines) THIS IS AN ELECTRONICALLY VERIFIED FINAL REPORT 10/08/2022 6:00 AM - Electronically signed by Thelma Sood M.D. TW: TIFFANI Report ID: [id number] Reading Location: [place] [address] Procedure Note Thelma Sood MD - 10/08/2022 EXAM DESCRIPTION: DEXA AXIAL SKELETON BONE DENSITY 1 OR MORE SITES REASON FOR STUDY: 72 y/o year old F with given history ofscreening. 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 FINDINGS: AP LUMBAR SPINE L1-L4: Total BMD is 1.260 g/cm2 T-score is 1.0 LEFT HIP: Total BMD is 0.971 g/cm2 T-score is -0.4 Femoral neck BMD is 0.812 g/cm2 T-score is -1.0 FRAX: FRAX not reported due to T-scores of hip, femoral neck and/or spine beingat or above -1.0 (Normal). IMPRESSION: Normal REFERENCE: Bone mineral density: Normal (T-score above or = -1.0) Low bone mass (T-score between -1.0 and -2.5) replaces thepreviously used term osteopenia Osteoporosis (T-score = or below -2.5) Medical evaluation for secondary causes of low bone mineral density may be appropriate. FRAX is a World Health Organization validated fracture risk assessmenttool that calculates a person's 10 year probability of a major osteoporosisrelated fracture and hip fracture. According to the National OsteoporosisFoundation guidelines, postmenopausal women and men age 50 or older with low bonemass and a 10 year probability of a major osteoporosis related fracture = or greater than 20% or a 10 year probability of a hip fracture = or greaterthan 3% should be considered for treatment. For further information, including treatment recommendations, please referto the 2013 ISCD Official Positions (http://www.iscd.org) and the NOF's Clinician's Guide to Prevention and Treatment of Osteoporosis (http://www.nof.org/professionals/clinical-guidelines) THIS IS AN ELECTRONICALLY VERIFIED FINAL REPORT 10/08/2022 6:00 AM - Electronically signed by Thelma Sood M.D. TW: TW Report ID: [id number] Reading Location: [place] [address] Anais Bach MD IM DXA PROCEDURES Final Result from Last 3 Months or Most Recently Relevant to Health Maintenance Insurance [employer] MEDICARE GOLD AETNA MEDICARE GOLD [employer] MEDICARE HMO Care Teams Wind Tunnel Engineer Relationship Specialty Start Date End Date Anais Bach MD PCP - General Family Medicine 09/22/21
--- OUTSIDE RECORDS SUMMARY | 2025-01-29 14:18 | XMS_ITS | Clinical Summary ---
Author Organization [facility] at the [facility] Address [address] [place] [address] Care Team Providers Care Irrigation System Operator Name Role Phone Anais Bach MD Primary Care Provider [phone] Allergies No known active allergies Medications aspirin [...] 07/28 Assessment & Plan (08/26/2024 3:38 AM SCHEDULING ADMINISTRATOR): Patient here for annual Medicare wellness visit and for review of complete medical problem list. All the elements of the plan were completed as outlined by [facility]. A copy of the prevention plan [...] 07/24/2024 Assessment & Plan (07/24/2024 6:23 PM SCHEDULING ADMINISTRATOR): I talked with her about the various [...] 07/24/2024 Assessment & Plan (07/24/2024 6:23 PM SCHEDULING ADMINISTRATOR): This is pretty minimal. Probably Not contributing to her symptoms. Endoscopically no abnormal findings. Olfactory hallucination 07/09/2024 Assessment & Plan (07/09/2024 11:06 AM SCHEDULING ADMINISTRATOR): ENT referral CT of brain Has follow up with Dr. Jaramillo in July. Acute cough 02/13/2024 Assessment & Plan (02/19/2024 6:10 AM CDT): New Order zpaisma, singulair Acute bacterial conjunctivitis of both eyes 11/2023 Assessment & Plan (11/10/2023 4:00 PM CDT): New Order vigamox Chronic right shoulder pain 05/03/2023 Neck pain 05/03/2023 Primary osteoarthritis of right shoulder 022 Assessment & Plan (05/12/2023 6:54 AM CDT): Persistent pain Order MRI shoulder Refer to pain management Assessment & Plan (08/04/2022 10:14 AM SCHEDULING ADMINISTRATOR): Uncontrolled Not better after 6 weeks of PT Refer to ortho DDD (degenerative disc disease), cervical 2021 Assessment & Plan (08/04/2022 10:14 AM SCHEDULING ADMINISTRATOR): Uncontrolled Not better after 6 weeks of [...] prn Assessment & Plan (08/05/2021 10:42 AM SCHEDULING ADMINISTRATOR): Patient says she does have lumbar degenerative disc disease and needs to see a spine surgeon. Assessment & Plan (04/07/2021 4:36 PM CDT): Chronic Refer to neurosurgeon Bilateral lower extremity pain 03/29/2021 Assessment & Plan (08/05/2021 10:43 AM SCHEDULING ADMINISTRATOR): Patient has bilateral lower extremity pain but [...] 01/28/2021 Assessment & Plan (08/05/2021 10:46 AM SCHEDULING ADMINISTRATOR): Patient does have spider veins on her legs and it was discussed with her that they would need to be injected and it is a cosmetic procedure. Assessment & Plan (02/04/2021 4:58 AM CDT): New Refer to vascular Carotid artery disease 06/29/2020 Hip pain, bilateral 06/29/2020 Assessment & Plan (10/13/2020 6:42 AM SCHEDULING ADMINISTRATOR): new Order xrays Order medrol pack, mobic Assessment & Plan (07/22/2020 9:51 AM SCHEDULING ADMINISTRATOR): Uncontrolled Refer to ortho Patient to get the xrays done, and then will order MRI Chronic bilateral low back pain with bilateral s ciatica 01/23/2020 Assessment & Plan (03/21/2022 11:20 AM CDT): Chronic Cont flexeril prn Assessment & Plan (08/12/2021 6:15 AM SCHEDULING ADMINISTRATOR): Chronic Cont flexeril prn Assessment & Plan [...] TG<150 Assessment & Plan (08/12/2021 6:14 AM SCHEDULING ADMINISTRATOR): Stable Follow low cholesterol diet Goal: TC<200, LDL<100, TG<150 Assessment & Plan (08/05/2021 10:46 AM SCHEDULING ADMINISTRATOR): Followed by her PCP and currently controlled with diet. Assessment & Plan (02/04/2021 4:58 AM CDT): Stable Follow low cholesterol diet Assessment & Plan (10/13/2020 6:43 AM SCHEDULING ADMINISTRATOR): Stable Follow low cholesterol diet Assessment & Plan (03/26/2020 5:13 AM CDT): Stable Follow low cholesterol diet Assessment & Plan (03/09/2020 2:10 AM CDT): Stable Follow low cholesterol diet Leg cramps 09/25/2019 Assessment & Plan (09/25/2019 12:24 PM SCHEDULING ADMINISTRATOR): Stable Cont Flexeril Hypertension, essential 09/25/2019 Assessment [...] DBP<90 Assessment & Plan (08/12/2021 6:14 AM SCHEDULING ADMINISTRATOR): Stable Cont hctz Goal: SBP<140, DBP<90 Assessment & Plan (08/05/2021 10:46 AM SCHEDULING ADMINISTRATOR): Followed by her PCP and controlled on her current medications. Assessment & Plan (02/04/2021 4:58 AM CDT): Stable Cont hctz, diltiazem Assessment & Plan (10/13/2020 6:42 AM SCHEDULING ADMINISTRATOR): Stable Cont hctz, diltiazem Assessment & Plan (07/22/2020 9:51 AM SCHEDULING ADMINISTRATOR): Stable Cont hctz, diltiazem Assessment & Plan [...] today. Assessment & Plan (09/25/2019 12:21 PM SCHEDULING ADMINISTRATOR): Stable Cont Diltiazem Postmenopausal 09/25/2019 Gastroesophageal reflux disease 09/25/2019 Assessment & Plan (09/25/2019 12:25 PM SCHEDULING ADMINISTRATOR): Uncontrolled Cont Pepcid Start Omeprazole Spinal stenosis [...] 04/18/2023 Assessment & Plan (08/04/2022 10:14 AM SCHEDULING ADMINISTRATOR): Uncontrolled Not better after 6 weeks of PT Refer to ortho Assessment & Plan (06/14/2022 6:19 AM CDT): New Order xrays Order medrol, flexeril Order PT Neck pain 06/08/2022 04/18/2023 Assessment & Plan (08/04/2022 10:14 AM SCHEDULING ADMINISTRATOR): Uncontrolled Not better after 6 weeks of PT Refer to ortho Assessment & Plan (06/14/2022 6:19 AM CDT): New Order xrays Order medrol, flexeril Order PT Acute pain of left knee 04/14/202203/29 Assessment & Plan (04/20/2022 2:59 AM CDT): Worsened Order mobic, medrol pack Encounter for preprocedural cardiovascular examination 08/04/2021 04/18/2023 Assessment & Plan (08/12/2021 6:15 AM SCHEDULING ADMINISTRATOR): Patient here for annual Medicare wellness visit [...] 04/18/2023 Assessment & Plan (10/13/2020 6:42 AM SCHEDULING ADMINISTRATOR): new Order xrays Order medrol pack, mobic [...] week Assessment & Plan (09/25/2019 12:19 PM SCHEDULING ADMINISTRATOR): Stable Cont Celebrex Adult general medical exam 09/25/2019 0 01/08/2020 Osteoarthritis of spine with radiculopathy, cervical region 02/06/2017 04/18/2023 Bloating 09/25/2013 04/18/2023 Burping 09/25/2013 04/18/2023 Encounters Date Type Department Care Team Description 11/21/2024 1:00 PM CDT Office Visit [facility] [address] [place] [address] [place] [id number] Lulu Walsh, BENJAMÍN Chronic right shoulder pain (Primary Dx); Chronic left shoulder pain from Last 3 Months Immunizations Immunization Administration Dates Next Due COVID-19 mRNA ([employer]) 0.3 m L (30 mcg) vaccine (12 years and up) 03/28/2024 Influenza, Quad, Adjuvantate d, Intramuscular 06/07/2023,05/17/2022,05/16/2022 Influenza, Quadrivalent, Hig h Dose, Preservative Free, Intrr 05/28/2021,05/13/2020 Influenza, Unspecified 03/28/2024,06/24/2021,08/2018 Pfizer SARS-CoV-2 Monovalent Vaccination (12+ Yrs) PURPLE 07/10/2021,11/18/2020,10/27/2020 Pneumococcal Conjugate Pcv20 02/14/2022 RSV Vaccine, Pref, Recombina nt, Subunit, Adjuvanted, PF, IM (Arexvy) 07/22/2023 ZOSTER Recombinant 05/10/2022,02/10/2022 Surgical History Surgery Date Site/Laterality Comments FOOT SURGERY 08/28/1981 - 08/27/1982 Bilateral FOOT SURGERY 08/28/2011 - 08/27/2012 Left TUBAL LIGATION CATARACT EXTRACTION, BILATERAL 08/28/2013 - 08/27/2014 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 BREAST BIOPSY Right KNEE SURGERY 08/28/2021 - 08/27/2022 Left BUNIONECTOMY Medical History Medical History Date Comments Hypertension Osteoarthritis of spine with radiculopathy, cerv ical region 02/06/2017 Foot pain, bilateral 01/23/2020 Hypertension, essential 09/25/2019 Gastroesophageal reflux disease 09/25/2019 Allergies Cataract Phantosmia Family History Medical History Relation Name Comments Cancer Brother 1 Hypertension Brother 1 Diabetes Brother 2 Hypertension Brother 2 Hypertension Brother 3 Asthma Brother 4 Hypertension Brother 4 Hypertension Brother 5 Hypertension Brother 6 Hypertension Brother 7 Hypertension Brother 8 Obesity Daughter 1 Obesity Daughter 2 Cancer Father Colon cancer Father Hypertension Father Cancer Mother Hypertension Mother Stomach cancer Mother Hypertension Sister 1 Multiple sclerosis Sister 1 Heart disease Sister 2 Hypertension Sister 2 Kidney failure Sister 2 Hypertension Sister 3 Diabetes Sister 4 Hypertension Sister 4 Hypertension Sister 5 Cervical cancer Sister 6 Hypertension Sister 6 Diabetes Sister 7 Hypertension Sister 7 Hypertension Sister 8 Obesity Son Breast cancer Neg Hx Relation Name Status Comments Brother 1 Brother 2 Brother 3 Brother 4 Alive Brother 5 Alive Brother 6 Alive Brother 7 Alive Brother 8 Alive Daughter 1 Alive Daughter 2 Alive Father Mother Sister 1 Sister 2 Sister 3 Sister 4 Alive Sister 5 Alive Sister 6 Alive Sister 7 Alive Sister 8 Alive Son Alive Social History Tobacco Use Types Packs/Day Years [...] on file Legal Sex Female 10:54 PM SCHEDULING ADMINISTRATOR Gender Identity Not on file Sexual Orientation Not on file Obstetrics History Para Term AB IAB SAB Ectopic Multiple Livin g Live Births 3 3 3 Date Outcome GA Total Labor Labor/2nd/3rd Weight Sex Type Anes PTL Raeann A1 A5 Name Clin Term Term Term Last Filed Vital Signs Vital Sign Reading Time Taken Comments Blood Pressure 134/76 11/21/2024 11:45 AM CDT Pulse 80 08/15/2024 11:23 AM SCHEDULING ADMINISTRATOR Temperature 36.8 C (98.2 F) 11/21/2024 11:45 AM CDT Respiratory Rate 18 08/15/2024 11:23 AM SCHEDULING ADMINISTRATOR Oxygen Saturation 98% 08/15/2024 11:23 AM SCHEDULING ADMINISTRATOR Inhaled Oxygen Concentration - - Weight 87.4 kg (192 lb 9.6 oz) 08/15/2024 11:23 AM SCHEDULING ADMINISTRATOR Height 162.6 cm (5' 4.02) 11/21/2024 11:45 AM C DT Body Mass Index 33.06 08/15/2024 11:23 AM SCHEDULING ADMINISTRATOR Plan of Treatment Health Maintenance Due Date Last Done Comments Hepatitis C Screening 1950 Hepatitis B Screening 1968 Covid-19 Vaccine (2023-2 5 season) 2024 03/28/2024, 07/12/2023, 07/10/2021, Additional history exists Osteoporosis Screening-Bone Density Scan 10/07/2024 10/07/2022 Depression Screening 08/15/2025 08/15/2024, 08/14/2023, 12/29/2022, Additional history exists Fall Risk Assessment 08/15/2025 08/15/2024, 08/14/2023, 12/29/2022, Additional history exists Well Visit 65+ 08/15/2025 08/15/2024, 07/28, 08/04/2021 Colon Cancer Screening-Colonoscopy 01/16/2026 01/17/2024, 02/23/2019 DTaP/Tdap/Td Vaccine (2 - Td or Tdap) 09/07/2033 09/07/2023 Pneumococcal vaccine 65+ Completed 02/14/2022 Zoster Vaccine Completed 05/10/2022, 02/10/2022 Colon Cancer Screening-CT Colonography Discontinued 01/17/2024, 02/23/2019 Colon Cancer Screening-DNA Stool Discontinued 01/17/20, 02/23/2019 Colon Cancer Screening-FIT Discontinued 01/17/2024, Colon Cancer Screening-Sigmoidoscopy Discontinued 01/17/2024, 02/23/2019 Breast Cancer Screening-Mammogram Discontinued 03/28/2024, 03/20/2023, 10/14/2021, Additional history exists Influenza Vaccine Completed 11/01/2024, , 06/07/2023, Additional history exists Procedures Procedure Name Priority Date/Time Associated Diagnosis Comments SCREENING MAMMOGRAM BILATERAL W ARTIE Schedule Routine, Read Routine (OP Routine) 03/28/2024 3:12 PM CDT Screening mammogram, encounter for HM COLONOSCOPY Routine 01/17/2024 11:45 AM CDT DEXA AXIAL SKELETON BONE DENSITY 1 OR MORE SITES Schedule Routine, Read Routine (OP Routine) 10/07/2022 2:09 PM SCHEDULING ADMINISTRATOR Postmenopausal from Last 3 Months or Most [...] age 40, based on guidelines of the [employer] [employer] (ACR Practice Parameter for the Performance of Screening and Diagnostic Mammography) and [employer] [employer]. For women [...] * HM COLONOSCOPY (01/17/2024 11:45 AM CDT) Historical Provider HEALTH MAINTENANCE Final Result * Dexa Axial Skeleton Bone Density 1 Or 2 Site (10/07/2022 2:09 PM SCHEDULING ADMINISTRATOR) Anatomical Region Laterality Modality Body N/A Mammography 10/08/2022 6:00 AM SCHEDULING ADMINISTRATOR Narrative 10/08/2022 6:00 AM SCHEDULING ADMINISTRATOR EXAM DESCRIPTION: DEXA AXIAL SKELETON BONE DENSITY 1 OR MORE SITES REASON FOR STUDY: 72 y/o year old F with given history of screening. 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 TW: TW Report ID: [id number] Reading Location: [id number] Procedure Note Thelma Sood MD - 10/08/2022 EXAM DESCRIPTION: DEXA AXIAL SKELETON BONE DENSITY 1 OR MORE SITES REASON FOR STUDY: 72 y/o year old F with given history ofscreening. Executive Vp/Model: [employer] A (S/N [id number]) CLINICAL INFORMATION: Current height: 64.5 inches Maximum [...] Thelma Sood M.D. TW: TW Report ID: [id number] Reading Location: [place] [address] Anais Bach MD IMG DXA PROCEDURES Final Result from Last 3 Months or Most Recently Relevant to Health Maintenance Insurance TNA MEDICARE GOLD [employer] MEDICARE GOLD [facility] MEDICARE O Care Teams Irrigation System Operator Relationship Specialty Start Date End Date Anais Bach MD PCP - General Family Medicine 09/22/21
== END 2025-01-29 14:04 | disposition home or self-care (01) ==
PROVIDERS: PCP Orthopaedic Surgery; Visit Provider Orthopaedic Surgery
DX: M19.012 Primary osteoarthritis, left shoulder (principal); M19.011 Primary osteoarthritis, right shoulder
CPT/HCPCS: 20610; 77002; J1010; J2003

== ENCOUNTER 2025-06-02 07:02 | Outpatient (CLI) | payer MEDICARE, SELFPAY ==
--- NOTE | ~2025-06-02 | MR_ITS ---
EXAMINATION: MR shoulder RT wo con DATE: 06/02/2025 07:45 INDICATION: Right shoulder primary osteoarthritis TECHNIQUE: Magnetic resonance imaging (MRI) of the right shoulder was performed without intravenous contrast. Sequences included axial PD-weighted FS FSE, coronal oblique PD-weighted FS FSE, coronal oblique T2-weighted FS FSE, sagittal PD-weighted FS FSE, and sagittal T1-weighted SE. COMPARISON: None. FINDINGS: Coracoacromial arch: The acromion undersurface is curved in morphology (type II). Moderate size anterior and lateral subacromial spurs. The coracoacromial ligament is normal. Moderate acromioclavicular osteoarthritis. Rotator cuff: Severe supraspinatus and moderate infraspinatus and teres minor tendinopathy. There is a bursal sided tear along the superior facet footplate of the conjoined portion of the supraspinatus and infraspinatus tendons which measures 1.4 cm AP, 1.5 cm medial to lateral which involves up to 1/3 of the tendon thickness. Additional small mild articular sided tear along the anterior superior facet footplate of the supraspinatus tendon which measures 6 mm AP, 5 mm medial collateral and involving no greater than one third of the tendon thickness. Normal rotator cuff muscle bulk and signal. Biceps tendon, glenoid labrum and glenohumeral cartilage: Severe tendinopathy of the long head biceps tendon with longitudinal split tear of the intra-articular portion of the tendon. Degeneration of the posterior glenoid labrum with amorphous increased signal and irregular margins posterior superiorly and minimal residual labral tissue with small marginal osteophytes along the posterior and inferior glenoid. There is a more well-defined small linear tear at the anterior labrum partial-thickness chondral ulceration and fissuring at the humeral head most prominent superomedially where it involves greater than 50% of the cartilage thickness. Glenoid cartilage appears relatively preserved. Fluid: Small glenohumeral joint effusion with mild synovitis at the axillary and deep subscapular recesses. No loose osteochondral bodies. Moderate amount of fluid with additional synovitis in the subacromial/subdeltoid bursa consistent with moderate bursitis. There is also mild bicipital tenosynovitis with small amount of fluid and tenosynovitis within the tendon sheath caudal to the intertubercular groove. Bones: Bone alignment is normal. No fracture or pathologic marrow replacing process. Hypertrophic and cystic change along the greater and lesser tuberosities, likely sequela of chronic rotator cuff disease. IMPRESSION: 1. Mild to moderate glenohumeral osteoarthritis with small tear at the anterior glenoid labrum and more diffuse likely chronic degenerative tearing of the posterior superior, posterior and inferior labrum. 2. Severe supraspinatus and moderate infraspinatus and subscapularis tendinopathy with small mild bursal sided tear at the distal insertion of the conjoined portion of the supraspinatus and infraspinatus tendons and small mild articular sided tear at the anterior superior facet footplate of the suprasp inatus tendon. 3. Mild bicipital tenosynovitis with severe tendinopathy and longitudinal split tearing of the intra-articular portion of the tendon. 4. Likely reactive small right glenohumeral joint effusion. 5. Moderate subacromial/subdeltoid bursitis. 6. Moderate acromioclavicular osteoarthritis. Reviewed, dictated and finalized at location A. IMPRESSION: 1. Mild to moderate glenohumeral osteoarthritis with small tear at the anterior glenoid labrum and more diffuse likely chronic degenerative tearing of the pos terior superior, posterior and inferior labrum. 2. Severe supraspinatus and moderate infraspinatus and subscapularis tendinopat hy with small mild bursal sided tear at the distal insertion of the conjoined p ortion of the supraspinatus and infraspinatus tendons and small mild articular sided tear at the anterior superior facet footplate of the supraspinatus tendon . 3. Mild bicipital tenosynovitis with severe tendinopathy and longitudinal split tearing of the intra-articular portion of the tendon. 4. Likely reactive small right glenohumeral joint effusion. 5. Moderate subacromial/subdeltoid bursitis. 6. Moderate acromioclavicular osteoarthritis.
--- NOTE | ~2025-06-02 | MR_ITS ---
EXAMINATION: MR shoulder LT wo con DATE: 06/02/2025 08:14 INDICATION: Primary osteoarthritis of the left shoulder TECHNIQUE: Magnetic resonance imaging (MRI) of the left shoulder was performed without intravenous contrast. Sequences included axial PD-weighted FS FSE, coronal oblique PD-weighted FS FSE, coronal oblique T2-weighted FS FSE, sagittal PD-weighted FS FSE, and sagittal T1-weighted SE. COMPARISON: None. FINDINGS: Coracoacromial arch: The acromion undersurface is curved in morphology (type II). Small anterior and lateral subacromial spurs. The coracoacromial ligament is normal. Moderate acromioclavicular osteoarthritis. Rotator cuff: Severe supraspinatus, moderate infraspinatus and mild subscapularis tendinopathy without discrete tears. The teres minor tendon is normal. Normal rotator cuff muscle bulk and signal. Biceps tendon, glenoid labrum and glenohumeral cartilage: Moderate tendinopathy without discrete tear of the intra-articular long head biceps tendon. Linear tear at the base of the posterior superior glenoid labrum. Degeneration deep posterior labrum which appears small with fraying along the free edge. Additional degeneration of the anterior labrum which is been partially replaced by small marginal osteophyte at the 3:00-4:00 position. Mild partial-thickness cartilage loss with smooth chondral surface along the cephalad third of the glenoid. Remaining glenohumeral cartilage is relatively preserved. Fluid: Small glenohumeral joint effusion. No loose osteochondral bodies. Moderate amount of fluid with synovitis in the subacromial/subdeltoid and without significant synovitis at the subcoracoid bursa. Bones: Bone alignment is normal. No fracture or pathologic marrow replacing process. Cystlike change along the middle facet of the greater tuberosity likely related to chronic rotator cuff disease. IMPRESSION: 1. Mild left glenohumeral osteoarthritis with tear of the posterior glenoid labrum and degenerative tearing of the posterior and anterior glenoid labrum. 2. And severe supraspinatus, moderate infraspinatus and mild subscapularis tendinopathy without tear. 3. Moderate tendinopathy without tear of the intra-articular long head biceps tendon. 4. Small left glenohumeral joint effusion. 5. Moderate subacromial/subdeltoid and subcoracoid bursitis. 6. Moderate acromioclavicular osteoarthritis. Reviewed, dictated and finalized at location A. IMPRESSION: 1. Mild left glenohumeral osteoarthritis with tear of the posterior glenoid lab rum and degenerative tearing of the posterior and anterior glenoid labrum. 2. And severe supraspinatus, moderate infraspinatus and mild subscapularis tend inopathy without tear. 3. Moderate tendinopathy without tear of the intra-articular long head biceps t endon. 4. Small left glenohumeral joint effusion. 5. Moderate subacromial/subdeltoid and subcoracoid bursitis. 6. Moderate acromioclavicular osteoarthritis.
== END 2025-06-02 07:03 | disposition home or self-care (01) ==
PROVIDERS: PCP Family Medicine; Visit Provider Orthopaedic Surgery
DX: M19.011 Primary osteoarthritis, right shoulder (principal); M19.012 Primary osteoarthritis, left shoulder; M25.412 Effusion, left shoulder; M25.411 Effusion, right shoulder
CPT/HCPCS: 73221

== ENCOUNTER 2025-07-27 14:46 | Emergency (ER) | payer MEDICARE, SELFPAY ==
--- NOTE | ~2025-07-27 | XR_ITS ---
Soft tissues neck: Indication: Pain Comparison: None Technique: 2 PA lateral views obtained. Findings: There is no distention of the pharynx or hypopharynx. No thickening of the epiglottis of the retropharyngeal to his. Moderate degenerative changes noted of the cervical spine. No radiopaque foreign body is demonstrated. IMPRESSION: No radiopaque foreign body identified. CTA suggested to assess as clinically warranted Reviewed, dictated and finalized at location P. ARCH CLERK IMPRESSION: No radiopaque foreign body identified. CTA suggested to assess as c linically warranted
[2025-07-27 14:59] VITALS: BP 139/74; PULSE 93; RESP 16; TEMP 36.2; O2SAT 100
--- NOTE | 2025-07-27 15:20 | ED.URI ---
HPI - URI/Sore Throat General Chief Complaint: Upper Respiratory Infection Stated Complaint: sorethroat Time Seen by Provider: 07/27/25 14:50 Source: patient Mode of arrival: ambulatory Limitations: no limitations History of Present Illness HPI Narrative: Patient is a 75-year-old female who presents with left-sided sore throat and nonproductive cough for 2 days. Denies any fever, chills, nausea vomiting, diarrhea. Patient has taken 1 dose of DayQuil and 1 dose of NyQuil per day. Also reports she feels like a pill is stuck in her throat after taking medication this morning. Patient still able to eat and drink normally and tolerate secretions. Related Data Home Medications ?Medication ?Instructions ?Recorded ?Confirmed ?Last Taken ?Type diltiazem HCl 180 mg 180 mg PO DAILY 12/20/20 06/17/25 06/20/24 07:50 History capsule,extended release 24 hr hydrochlorothiazide 12.5 mg tablet 12.5 mg PO DAILY 12/20/20 06/17/25 09/13/22 History cyclobenzaprine 10 mg tablet 10 mg BID PRN Muscle Spasm 08/30/22 06/17/25 09/11/22 History pantoprazole 40 mg tablet,delayed 40 mg PO BID 08/30/22 06/17/25 09/13/22 History release aspirin 81 mg capsule 81 mg PO DAILY 02/21/24 06/17/25 06/12/24 History magnesium 200 mg tablet 200 mg PO DAILY 02/21/24 06/17/25 06/12/24 History potassium chloride 8 mEq 8 meq PO DAILY 02/21/24 06/17/25 Unknown History capsule,extended release linaclotide 145 mcg capsule mcg PO DAILY 06/25/25 Unknown History (Linzess) meloxicam 7.5 mg tablet mg PO DAILY 06/25/25 Unknown History polyethylene glycol 3350 17 gram 17 g PO QAM PRN 06/25/25 Unknown History oral powder packet (Miralax) ciclopirox 8 % topical solution topical 07/27/25 Unknown History fluticasone propionate 50 intranasal 07/27/25 Unknown History mcg/actuation nasal spray,suspension montelukast 10 mg tablet mg 07/27/25 Unknown History Allergies Allergy/AdvReac Type Severity Reaction Status Date / Time No Known Allergies Allergy Verified 07/27/25 15:18 Review of Systems Review of Systems: All systems reviewed & are unremarkable except as noted in HPI and below Constitutional: Constitutional: Denies chills, Denies fatigue, Denies fever(s), Denies headache(s), Denies malaise and Denies weakness Eyes: Eyes: Denies blurry vision, Denies itchy eyes and Denies loss of vision ENT: Denies otalgia, Denies headache(s), Denies nasal congestion, Denies sinus pain and Reports sore throat Cardiovascular: Cardiovascular: Denies chest pain, Denies irregular heart rhythm and Denies dyspnea Respiratory: Respiratory: Reports cough and Denies dyspnea Gastrointestinal: Gastrointestinal: Denies abdominal pain, Denies diarrhea, Denies nausea and Denies vomiting Musculoskeletal: Musculoskeletal: Denies back pain, Denies myalgias and Denies arthralgias Integumentary/Breasts: Skin/Breast: Denies pruritus and Denies rash Neurologic: Denies headache(s), Denies loss of vision and Denies weakness Psychiatric: Psychiatric: Reports no additional psychiatric complaints Endocrine: Endocrine: Denies fatigue Allergic/Immunologic: Allergic/Immunologic: Denies itchy eyes PMFSH Past Medical History Medical History GERD (gastroesophageal reflux disease) Obesity (BMI 30.0-34.9) Hypersomnia, idiopathic With MSLT demonstrating hypersomnia in 2016 without evidence of REM sleep achieved so cannot diagnose narcolepsy Essential hypertension Back pain Surgical History Surgical History Status post total right knee replacement History of tubal ligation History of bunionectomy of both great toes Status post total left knee replacement (09/14/22) History of right breast biopsy (~1999) With benign pathology Status post trigger finger release Right thumb 2002, left thumb 1996 History of bilateral carpal tunnel release (2002) Family History Family History Sibling DVT (deep venous thrombosis) Other Heart disease Hypertension Social History Social History Social History: 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 Brother who moved recently from [place] in now living with her. Smoking status: Never smoker Second hand tobacco smoke exposure: No Alcohol intake: current Drinks per week: 1 Alcohol use details: occasional Substance use: never Substance use type: does not use Lack of Transportation: No Lack of Food: Never True Current Housing: I Have Housing Concerned About Future Housing: No Difficulty Paying Gas/Electric Bills: No Difficulty Paying for Meds: No Currently Unemployed: No Education: High School Diploma/GED Difficulty w/ Childcare or Family Care: No Living arrangements: alone Additional living arrangements comments: Brother Gender identity (if verbalized by the patient): Female Spiritual care concerns: No Comments At time of signature, agree with nursing past medical, surgical, social and family history. There is no relevant family history pertinent to the presenting complaint. Exam Const: General: cooperative, healthy appearing, comfortable, no acute distress and well nourished Nutritional Appearance: well nourished Orientation/consciousness: patient oriented x3 Limitations: no limitations HENMT: Head: normal to inspection, normocephalic and atraumatic Ears: hearing grossly normal bilaterally, external ears normal, TM's normal bilaterally, EAC's normal and no periauricular adenopathy Face/Nose/Sinus: Normal external nose present, Abnormal mucous membranes and turbinates present erythematous bilateral and diffuse, normal facial exam, sinuses nontender and face symmetric Face and sinus: normal facial exam, sinuses nontender and face symmetric Mouth: Yes Normal oral and palatal mucosa present, Yes lip normal, Yes tongue normal, Yes Normal salivary glands and ducts present, Yes oropharynx normal and Yes moist mucous membranes Teeth and gingiva: dentition normal Throat: uvula midline, abnormal tonsil on the left erythema and hypertrophy 2+, posterior oropharynx abnormal erythema and postnasal drainage Eyes: General: appearance normal, both eyes and all related structures Alignment and Position: alignment normal and position normal Periorbital: periorbital findings normal Eyelids: eyelids normal Pupils: Equal, round and reactive pupils present Neck: Neck: normal visual inspection, full ROM, no lymphadenopathy and supple Chest: Chest palpation & inspection: normal inspection of the chest and normal palpation of entire chest wall Resp: Effort & Inspection: normal respiratory effort and able to speak in complete sentences Auscultation: clear to auscultation bilaterally, no crackles, no rales, no rhonchi and no wheezes Cardio: Rate: regular rate Rhythm: regular rhythm Heart sounds: S1 normal heart sound present and S2 normal heart sound present GI: Inspection: normal to inspection Skin: General skin exam: normal color and no rashes or lesions noted Neuro: General: patient oriented x3 and moves all extremities Cranial nerves: Yes Equal, round and reactive pupils present Speech: normal speech Gait exam (Neuro): Normal gait present Extrem: General: normal to inspection, full ROM and no edema Psych: Appearance: grossly normal and well kempt Mental Status: mental status grossly normal Speech and movement: Normal speech and movement present Affect: normal affect Attitude: cooperative Thought process: Normal thought process present Course Course Emergency Course: Discharge instructions reviewed with patient, as well as provided in writing per nursing staff. The instructions also include specific and strict return/GO TO THE ER as well as f/u information. All questions have been answered, and the patient deny any further questions with discharge and discharge plan. Portions of this record may have been created with voice recognition software Level of Care: Express Care Visit Vital Signs Vital signs: Vital Signs Temperature 36.2 C L 07/27/25 14:59 Pulse Rate 93 07/27/25 14:59 Respiratory Rate 16 07/27/25 14:59 Blood Pressure 139/74 07/27/25 14:59 Pulse Oximetry 100 07/27/25 14:59 Oxygen Delivery Room Air 07/27/25 14:59 Temperature 36.2 C L 07/27/25 14:59 Pulse Rate 93 07/27/25 14:59 Respiratory Rate 16 07/27/25 14:59 Blood Pressure 139/74 07/27/25 14:59 Pulse Oximetry 100 07/27/25 14:59 Oxygen Delivery Room Air 07/27/25 14:59 Reviewed MDM - URI/Sore Throat MDM Narrative Medical decision making narrative: Rapid COVID, flu, strep were negative. A throat culture is pending. Symptoms likely viral in etiology. Soft tissue neck showed no signs of foreign body. Instructed patient to follow-up with PCP or go to the emergency department if symptoms persist for CT scan. Pt well hydrated appearing, in no respiratory distress, hemodynamically stable. Recommend supportive care. The patient is stable at time of discharge the clinical impression was discussed and the patient was given the opportunity to ask questions, which were addressed as completely as possible given the information available at present. Anticipatory guidance and return to care precautions were discussed and the importance of primary care follow-up was stressed and encouraged. The patient voiced understanding of the plan, indications to return, and the need for follow-up. Exam findings show no acute concerns or changes Patient is appropriate for outpatient treatment and follow-up. Differential diagnosis considered: Reddy virus, strep pharyngitis, allergic rhinitis, upper respiratory tract infection, sinusitis, rhinosinusitis, nasopharyngitis. viral pharyngitis, otitis media, otitis externa, otitis effusion, foreign body, cerumen impaction, viral syndrome, and influenza.? Medical Records Attestation: I reviewed the patient's medical records. Lab Data Attestation: I reviewed the patient's lab results. Labs: Lab Results 07/27/25 Range/Units 14:55 POC Influenza A Ag Negative (Negative) POC Influenza B Ag Negative (Negative) POC SARS CoV-2 Ag Negative (Negative) POC Grp A Strep Screen Negative (Negative) Imaging Data Radiologist's impression: Soft tissues neck: Indication: Pain Comparison: None Technique: 2 PA lateral views obtained. Findings: There is no distention of the pharynx or hypopharynx. No thickening of the epiglottis of the retropharyngeal to his. Moderate degenerative changes noted of the cervical spine. No radiopaque foreign body is demonstrated. IMPRESSION: No radiopaque foreign body identified. CTA suggested to assess as clinically warranted Reviewed, dictated and finalized at location P. TAL MEDIA DESIGNER Discharge Plan Discharge Clinical Impression: Upper respiratory infection Qualifiers: URI type: acute nasopharyngitis (common cold) Qualified Code(s): J00 - Acute nasopharyngitis [common cold] Patient Disposition: Home Condition: Stable Instructions: Upper Respiratory Infection (ED) Additional Instructions: your x-ray showed no signs of foreign body in throat Your rapid strep swab was negative today at [facility]. A throat culture will be sent to the laboratory for further testing. If the test is positive, you will receive a phone call within 48 hours and an appropriate antibiotic will be initiated at that time. Your Covid and flu are both negative Your symptoms are likely due to a viral illness, which is not treated with antibiotics. Viral symptoms can be present for up to a few weeks. -For pain/fever, you may take: Tylenol 650-1000mg by mouth every 4-6 hours. Do not exceed 4000mg in 24 hours. Advil (Ibuprofen) 600 mg by mouth every 6 hours. Do not exceed 2400mg in 24 hours. 8 AM: Tylenol 11 AM: Ibuprofen 2 PM: Tylenol 5 PM: Ibuprofen 8 PM: Tylenol 11 PM: Ibuprofen 2 AM: Tylenol 5 AM: Ibuprofen -Antihistamine medication such as Benadryl/Zyrtec at night and Claritin/Mag during the day can help improve symptoms. -Use Flonase twice a day for 5 days then daily to help reduce the inflammation and dry up your sinuses. -You can also use Sudafed behind the pharmacy counter(12 or 24 hour). Be sure to drink plenty of water with these medications at least 8 ounces with every dose and it is important to drink 8 to 10 glasses of water per day. Water is a natural decongestant -Eat and drink things that are easy to swallow, like tea or soup, or popsicles. -Oral rinses such as: Salt water gargles and/or may use topical anesthetic (eg. Chloraseptic spray) or lozenges to relieve dryness or throat pain). -Frequent hand washing or hand radio dispatcher is one of the best ways to prevent spread of infection. -Using a vaporizer or humidifier at night will also help thin secretions and help with coughing up phlegm. Call your Primary Care Doctor and make a follow-up appointment in 3 days. If your cough worsens, you develop a fever greater than 103, you develop shaking chills, a fast heartbeat, trouble breathing and/or feel you are are breathing much faster than usual, call your Primary Care Doctor or go to the ER. Patient Language: Setswana Prescriptions: No Action hydrochlorothiazide 12.5 mg tablet 12.5 mg PO DAILY diltiazem HCl 180 mg capsule,extended release 24hr 180 mg PO DAILY Patient Comments: QAM ciclopirox 8 % solution TOPICAL montelukast 10 mg tablet fluticasone propionate 50 mcg/actuation spray,suspension INTRANASAL aspirin 81 mg capsule 81 mg PO DAILY potassium chloride 8 mEq capsule, extended release 8 meq PO DAILY magnesium 200 mg tablet 200 mg PO DAILY polyethylene glycol 3350 [Miralax] 17 gram powder in packet 17 g PO QAM PRN meloxicam 7.5 mg tablet PO DAILY Linzess 145 mcg capsule PO DAILY cyclobenzaprine 10 mg tablet 10 mg BID PRN (Reason: Muscle Spasm) pantoprazole 40 mg tablet,delayed release (DR/EC) 40 mg PO BID acetaminophen 500 mg Tablet 1,000 mg PO Q6H Qty: 90 0RF Follow-up/Referrals: Clint,Anais [Other] - 3 Days Time of Disposition: 16:15
[2025-07-27 15:33] LABS: EDSTREPNEGPOS1 Negative (Negative)
[2025-07-27 15:57] LABS: EDCOVIDSCREEN Negative (Negative); EDINFLUASCREEN Negative (Negative); EDINFLUBSCREEN Negative (Negative)
== END 2025-07-27 16:20 | disposition home or self-care (01) ==
PROVIDERS: Emergency Provider Nurse Practitioner Family
DX: J00 Acute nasopharyngitis [common cold] (principal); Z20.822 Contact with and (suspected) exposure to COVID-19; I10 Essential (primary) hypertension; K21.9 Gastro-esophageal reflux disease without esophagitis; E66.9 Obesity, unspecified; Z68.33 Body mass index [BMI] 33.0-33.9, adult; Z96.653 Presence of artificial knee joint, bilateral; Z79.82 Long term (current) use of aspirin
CPT/HCPCS: 70360; 87081; 87426; 87804; 87880; 99213; G0463